=== PATIENT | female | born 1955 | race Two or more races ===

== ENCOUNTER 2017-11-02 10:15 | Inpatient (IN) | payer OTHER, MEDICAID ==
[~2017-11-02] VITALS: Ht 160 cm; Wt 163.3 kg
[2017-11-02 11:00] LABS: Basophils # (auto) 0 uL; Basophils % (auto) 0.4 % (0.0-2.0); Eosinophils # (auto) 0.1 uL; Eosinophils % (auto) 0.5 % (0.0-7.0); Hematocrit 35.2 % (36.0-46.0); Hemoglobin 11.8 g/dL (12.2-16.2); Lymphocytes # (auto) 0.7 uL; Mean Corpuscular Hemoglobin 29.5 pg (28.0-32.0); Mean Corpuscular Hgb Conc. 33.5 g/dL (32.0-36.0); Mean Corpuscular Volume 88.1 fL (80.0-100.0); Monocytes # (auto) 1.2 uL; Monocytes % (auto) 10.2 % (0.0-12.0); Neutrophils % (auto) 82.9 % (37.0-80.0); Platelet Count (auto) 299 10^3/uL (140-450); Red Blood Cells 3.99 10^6/uL (4.0-5.20); Red Cell Distribution Width 14.1 % (11.8-14.3); White Blood Cell 12.1 10^3/uL (4.4-10.8)
[2017-11-02 11:23] LABS: Albumin 2.6 g/dL (3.4-5.0); BUN/Creatinine Ratio 20.7; Potassium 3.4 mmol/L (3.5-5.1); Total Protein 7.1 g/dL (6.4-8.2)
[2017-11-02 11:44] LABS: Lactic Acid w/Reflex 2.8 mmol/L (0.4-2.0)
[2017-11-02] MEDS ORDERED: VANCOMYCIN 1GM/250ML 250 ML IV ONE (12:30)
[2017-11-02] MEDS ORDERED: PIPERACILLIN-TAZOB 3.375GM 100 ML IV ONE (12:30)
[2017-11-02] MEDS ORDERED: LORazepam 0.5 MG TAB PO PRN (13:30)
[2017-11-02] MEDS ORDERED: NITROGLYCERIN 0.4 MG SL TAB SL PRN (13:30)
[2017-11-02] MEDS ORDERED: PROMETHAZINE HCL 25 MG/ML 1ML IV PRN (13:30)
[2017-11-02] MEDS ORDERED: MORPHINE SULFATE 8mg/ml INJ SDV IV PRN ×2 (13:30)
[2017-11-02] MEDS ORDERED: ACETAMINOPHEN 500 MG TAB PO PRN (13:30)
[2017-11-02] MEDS ORDERED: LACTULOSE 20Gm/30ML SOLN PO PRN (13:30)
[2017-11-02] MEDS: SODIUM CHLORIDE 0.9% 1,000 ML IV SCH ×2 (14:02→23:52)
[2017-11-02] MEDS ORDERED: GASTROGRAFIN 120 ML SOL ONE (15:10)
[2017-11-02] MEDS ORDERED: FLUCONAZOLE 200MG/100ML 100 ML IV ONE (15:45)
[2017-11-02] MEDS ORDERED: MEPERIDINE HCL (25 MG/ML) 1ML VIAL IV PRN (19:00)
[2017-11-02] MEDS ORDERED: ACETAMINOPHEN 650 mg PER 20 mL UD ONE (19:06)
[2017-11-02 19:27] LABS: Hematocrit 33.2 % (36.0-46.0); Hemoglobin 11.2 g/dL (12.2-16.2)
[2017-11-02 19:43] LABS: INR 1.2 (0.9-1.15); Partial Thromboplastin Time 31.3 sec (23.78-33.04); Prothrombin Time 12.7 sec (9.27-12.13)
[2017-11-02] MEDS: CLINDAMYCIN 600MG IV 50 ML IV SCH ×2 (20:15)
[2017-11-02] MEDS ORDERED: WARFARIN SODIUM 5 MG TAB PO ONE (20:45)
[2017-11-02 21:34] LABS: Urine Bacteria NONE SEEN /hpf (None Seen); Urine Blood Negative /uL (Negative); Urine Hyaline Cast FEW /lpf (0 - 2); Urine Mucus FEW (None Seen); Urine Specific Gravity 1.028 (1.001-1.035); Urine WBC 2 /hpf (0 - 5)
[2017-11-03] MEDS: NYSTATIN TOPICAL POWDER 15GM TOP SCH ×3 (00:18→22:00)
[2017-11-03] MEDS: ENOXAPARIN SOD 120 MG/0.8 ML SYRINGE SC SCH ×3 (00:18→21:08)
[2017-11-03 01:07] LABS: Hematocrit 31.4 % (36.0-46.0); Hemoglobin 10.8 g/dL (12.2-16.2)
[2017-11-03] MEDS: CLINDAMYCIN 600MG IV 50 ML IV SCH ×3 (06:22→21:08)
[2017-11-03 06:56] LABS: Basophils # (auto) 0 uL; Basophils % (auto) 0.2 % (0.0-2.0); Eosinophils # (auto) 0.2 uL; Eosinophils % (auto) 2.2 % (0.0-7.0); Hematocrit 30.5 % (36.0-46.0); Hemoglobin 10.6 g/dL (12.2-16.2); Lymphocytes # (auto) 0.7 uL; Mean Corpuscular Hemoglobin 30.4 pg (28.0-32.0); Mean Corpuscular Hgb Conc. 34.8 g/dL (32.0-36.0); Mean Corpuscular Volume 87.3 fL (80.0-100.0); Monocytes # (auto) 0.9 uL; Monocytes % (auto) 10.2 % (0.0-12.0); Neutrophils # (auto) 7.2 uL; Neutrophils % (auto) 79.4 % (37.0-80.0); Nucleated Red Blood Cells % 0.1 %; Platelet Count (auto) 263 10^3/uL (140-450); Red Blood Cells 3.49 10^6/uL (4.0-5.20); Red Cell Distribution Width 14.3 % (11.8-14.3); White Blood Cell 9.1 10^3/uL (4.4-10.8)
[2017-11-03 07:06] LABS: BUN/Creatinine Ratio 30.5; Calcium 8.5 mg/dL (8.5-10.1); Potassium 3.1 mmol/L (3.5-5.1); Total Protein 5.8 g/dL (6.4-8.2)
[2017-11-03 07:16] LABS: INR 1.2 (0.9-1.15); Partial Thromboplastin Time 34.8 sec (23.78-33.04); Prothrombin Time 12.7 sec (9.27-12.13)
[2017-11-03] MEDS ORDERED: POTASSIUM CHL 20 Meq TABLET PO ONE (09:15)
[2017-11-03] MEDS: cefTRIAXone 1GM/10ml IVPUSH 10 ML IV SCH (10:08)
[2017-11-03] MEDS: FLUCONAZOLE 200MG/100ML 100 ML IV SCH (10:08)
[2017-11-03] MEDS: PANTOPRAZOLE 40 MG TAB PO SCH (10:08)
[2017-11-03] MEDS: SODIUM CHLORIDE 0.9% 1,000 ML IV SCH ×2 (10:08→21:07)
[2017-11-03] MEDS: BOOST PLUS 8 ounce PO SCH ×3 (12:09→21:08)
[2017-11-03] MEDS ORDERED: WARFARIN SODIUM 2.5 MG TAB PO ONE (17:00)
[2017-11-03 17:50] VITALS: BP 117/49
[2017-11-03 20:21] VITALS: BP 112/43
[2017-11-03] MEDS: HYDROcodone-ACET 5/325MG TAB PO PRN (21:34)
[2017-11-04 00:07] VITALS: BP 114/55
[2017-11-04 04:00] VITALS: BP 117/56
[2017-11-04] MEDS: HYDROcodone-ACET 5/325MG TAB PO PRN ×2 (04:50→22:01)
[2017-11-04] MEDS: SODIUM CHLORIDE 0.9% 1,000 ML IV SCH ×3 (05:17→20:12)
[2017-11-04 05:27] LABS: Basophils # (auto) 0 uL; Basophils % (auto) 0.5 % (0.0-2.0); Eosinophils # (auto) 0.2 uL; Eosinophils % (auto) 2.4 % (0.0-7.0); Hematocrit 30.4 % (36.0-46.0); Hemoglobin 10.3 g/dL (12.2-16.2); Lymphocytes % (auto) 12.7 % (10.0-50.0); Mean Corpuscular Hemoglobin 29.9 pg (28.0-32.0); Mean Corpuscular Hgb Conc. 33.9 g/dL (32.0-36.0); Mean Corpuscular Volume 88.2 fL (80.0-100.0); Monocytes # (auto) 0.9 uL; Monocytes % (auto) 11.7 % (0.0-12.0); Neutrophils # (auto) 5.7 uL; Neutrophils % (auto) 72.7 % (37.0-80.0); Nucleated Red Blood Cells % 0.1 %; Platelet Count (auto) 263 10^3/uL (140-450); Red Blood Cells 3.45 10^6/uL (4.0-5.20); Red Cell Distribution Width 14.6 % (11.8-14.3); White Blood Cell 7.8 10^3/uL (4.4-10.8)
[2017-11-04 05:40] LABS: INR 1.13 (0.9-1.15); Partial Thromboplastin Time 34.9 sec (23.78-33.04)
[2017-11-04 05:44] LABS: Albumin 2.1 g/dL (3.4-5.0); BUN/Creatinine Ratio 24.5; Bilirubin, Total 0.5 mg/dL (0.2-1.0); Calcium 7.6 mg/dL (8.5-10.1); Potassium 3.4 mmol/L (3.5-5.1); Total Protein 5.9 g/dL (6.4-8.2)
[2017-11-04] MEDS: CLINDAMYCIN 600MG IV 50 ML IV SCH ×3 (06:06→21:27)
[2017-11-04] MEDS: BOOST PLUS 8 ounce PO SCH ×3 (06:07→22:00)
[2017-11-04 08:30] VITALS: BP 120/65
[2017-11-04] MEDS: cefTRIAXone 1GM/10ml IVPUSH 10 ML IV SCH (09:25)
[2017-11-04] MEDS: FLUCONAZOLE 200MG/100ML 100 ML IV SCH (09:43)
[2017-11-04] MEDS: PANTOPRAZOLE 40 MG TAB PO SCH (09:43)
[2017-11-04] MEDS: ENOXAPARIN SOD 120 MG/0.8 ML SYRINGE SC SCH ×2 (09:43→21:27)
[2017-11-04] MEDS ORDERED: POTASSIUM CHL 10% (20 MEQ/15ML) 15ml ORAL SOLN PO ONE (09:45)
[2017-11-04] MEDS: NYSTATIN TOPICAL POWDER 15GM TOP SCH ×2 (09:45→21:27)
[2017-11-04 12:39] VITALS: BP 121/53
[2017-11-04] MEDS ORDERED: WARFARIN SODIUM 2.5 MG TAB PO ONE (17:00)
[2017-11-04 17:23] VITALS: BP 118/48
[2017-11-04 20:00] VITALS: BP 125/54
[2017-11-05] VITALS: BP 128/57
[2017-11-05 04:00] VITALS: BP 129/57
[2017-11-05] MEDS: CLINDAMYCIN 600MG IV 50 ML IV SCH ×4 (05:01→21:11)
[2017-11-05] MEDS: SODIUM CHLORIDE 0.9% 1,000 ML IV SCH ×2 (05:04→18:00)
[2017-11-05 05:09] LABS: Basophils # (auto) 0 uL; Basophils % (auto) 0.8 % (0.0-2.0); Eosinophils # (auto) 0.1 uL; Hematocrit 29.4 % (36.0-46.0); Lymphocytes # (auto) 0.6 uL; Mean Corpuscular Hemoglobin 30.2 pg (28.0-32.0); Mean Corpuscular Hgb Conc. 34.1 g/dL (32.0-36.0); Mean Corpuscular Volume 88.5 fL (80.0-100.0); Monocytes # (auto) 0.8 uL; Monocytes % (auto) 14.2 % (0.0-12.0); Neutrophils # (auto) 3.9 uL; Nucleated Red Blood Cells % 0.1 %; Platelet Count (auto) 232 10^3/uL (140-450); Red Blood Cells 3.32 10^6/uL (4.0-5.20); Red Cell Distribution Width 14.8 % (11.8-14.3); White Blood Cell 5.4 10^3/uL (4.4-10.8)
[2017-11-05 05:25] LABS: INR 1.59 (0.9-1.15); Partial Thromboplastin Time 37.8 sec (23.78-33.04); Prothrombin Time 16.6 sec (9.27-12.13)
[2017-11-05 05:34] LABS: BUN/Creatinine Ratio 27.4; Bilirubin, Total 0.4 mg/dL (0.2-1.0); Calcium 7.3 mg/dL (8.5-10.1); Potassium 3.7 mmol/L (3.5-5.1); Total Protein 5.9 g/dL (6.4-8.2)
[2017-11-05] MEDS: BOOST PLUS 8 ounce PO SCH ×4 (06:00→21:11)
[2017-11-05 08:00] VITALS: BP 126/59
[2017-11-05] MEDS: cefTRIAXone 1GM/10ml IVPUSH 10 ML IV SCH (09:27)
[2017-11-05] MEDS: ENOXAPARIN SOD 120 MG/0.8 ML SYRINGE SC SCH ×2 (10:00→21:12)
[2017-11-05] MEDS: NYSTATIN TOPICAL POWDER 15GM TOP SCH ×2 (10:00→21:12)
[2017-11-05] MEDS: PANTOPRAZOLE 40 MG TAB PO SCH (10:00)
[2017-11-05] MEDS: FLUCONAZOLE 200MG/100ML 100 ML IV SCH (10:00)
[2017-11-05 11:50] VITALS: BP 126/35
[2017-11-05] MEDS: HYDROcodone-ACET 5/325MG TAB PO PRN (15:16)
[2017-11-05 15:56] VITALS: BP 126/40
[2017-11-05] MEDS ORDERED: WARFARIN SODIUM 5 MG TAB PO ONE (17:30)
[2017-11-05 19:50] VITALS: BP 122/47
[2017-11-06] VITALS: BP 139/69
[2017-11-06 04:00] VITALS: BP 129/49
[2017-11-06 05:08] LABS: Basophils # (auto) 0 uL; Basophils % (auto) 0.2 % (0.0-2.0); Eosinophils # (auto) 0.2 uL; Hematocrit 28.8 % (36.0-46.0); Hemoglobin 9.8 g/dL (12.2-16.2); Lymphocytes # (auto) 0.9 uL; Lymphocytes % (auto) 11.2 % (10.0-50.0); Mean Corpuscular Hgb Conc. 33.9 g/dL (32.0-36.0); Mean Corpuscular Volume 88.5 fL (80.0-100.0); Monocytes % (auto) 12.6 % (0.0-12.0); Neutrophils # (auto) 5.9 uL; Nucleated Red Blood Cells % 0.1 %; Platelet Count (auto) 216 10^3/uL (140-450); Red Blood Cells 3.25 10^6/uL (4.0-5.20)
[2017-11-06 05:21] LABS: INR 3.61 (0.9-1.15); Partial Thromboplastin Time 45.8 sec (23.78-33.04); Prothrombin Time 35.9 sec (9.27-12.13)
[2017-11-06 05:44] LABS: Albumin 1.9 g/dL (3.4-5.0); Bilirubin, Total 0.3 mg/dL (0.2-1.0); Calcium 7.5 mg/dL (8.5-10.1); Potassium 3.8 mmol/L (3.5-5.1); Total Protein 5.9 g/dL (6.4-8.2)
[2017-11-06] MEDS: BOOST PLUS 8 ounce PO SCH ×4 (05:52→21:15)
[2017-11-06] MEDS: CLINDAMYCIN 600MG IV 50 ML IV SCH ×3 (05:52→21:15)
[2017-11-06] MEDS: SODIUM CHLORIDE 0.9% 1,000 ML IV SCH ×2 (05:53→18:31)
[2017-11-06 08:00] VITALS: BP 118/47
[2017-11-06] MEDS: PANTOPRAZOLE 40 MG TAB PO SCH (10:14)
[2017-11-06] MEDS: cefTRIAXone 1GM/10ml IVPUSH 10 ML IV SCH (10:15)
[2017-11-06] MEDS: FLUCONAZOLE 200MG/100ML 100 ML IV SCH (10:15)
[2017-11-06] MEDS: NYSTATIN TOPICAL POWDER 15GM TOP SCH ×2 (10:15→21:16)
[2017-11-06 12:00] VITALS: BP 119/44
[2017-11-06 16:00] VITALS: BP 124/47
[2017-11-06] MEDS: PRO-STAT 64 30ML PO SCH (18:00)
[2017-11-06 19:52] VITALS: BP 153/45
[2017-11-06] MEDS: HYDROcodone-ACET 5/325MG TAB PO PRN (21:53)
[2017-11-07] VITALS: BP 120/88
[2017-11-07] MEDS: SODIUM CHLORIDE 0.9% 1,000 ML IV SCH ×2 (03:42→13:20)
[2017-11-07 04:00] VITALS: BP 137/56
[2017-11-07 05:08] LABS: Hematocrit 29.2 % (36.0-46.0); Hemoglobin 9.7 g/dL (12.2-16.2); Mean Corpuscular Hemoglobin 29.8 pg (28.0-32.0); Mean Corpuscular Hgb Conc. 33.4 g/dL (32.0-36.0); Mean Corpuscular Volume 89.2 fL (80.0-100.0); Platelet Count (auto) 218 10^3/uL (140-450); Red Blood Cells 3.27 10^6/uL (4.0-5.20); Red Cell Distribution Width 15.2 % (11.8-14.3)
[2017-11-07 05:14] LABS: Basophils % (manual) 0 (0.0-2.0); Blast Cells 0; Myelocytes % 0; Promyelocytes % 0; Reactive Lymphocytes 0
[2017-11-07 05:23] LABS: INR 2.16 (0.9-1.15); Prothrombin Time 22.1 sec (9.27-12.13)
[2017-11-07 05:24] LABS: BUN/Creatinine Ratio 22.4; Calcium 7.4 mg/dL (8.5-10.1)
[2017-11-07] MEDS: CLINDAMYCIN 600MG IV 50 ML IV SCH ×3 (05:37→21:46)
[2017-11-07] MEDS: BOOST PLUS 8 ounce PO SCH ×4 (05:37→22:24)
[2017-11-07 06:50] LABS: Band Neutrophils % (manual) 4; Eosinophils % (manual) 1 (0-7); Lymphocytes % (manual) 13 (10.0-50.0); Metamyelocytes % 2; Monocytes % (manual) 11 (0-12)
[2017-11-07 08:00] VITALS: BP 127/56
[2017-11-07] MEDS: PRO-STAT 64 30ML PO SCH ×2 (08:00→18:06)
[2017-11-07] MEDS: PANTOPRAZOLE 40 MG TAB PO SCH (09:36)
[2017-11-07] MEDS: FLUCONAZOLE 200MG/100ML 100 ML IV SCH (09:36)
[2017-11-07] MEDS: cefTRIAXone 1GM/10ml IVPUSH 10 ML IV SCH (09:36)
[2017-11-07] MEDS: NYSTATIN TOPICAL POWDER 15GM TOP SCH ×2 (09:36→22:23)
[2017-11-07 11:50] VITALS: BP 110/51
[2017-11-07 16:00] VITALS: BP 117/45
[2017-11-07] MEDS ORDERED: WARFARIN SODIUM 2.5 MG TAB PO ONE (17:00)
[2017-11-07] MEDS ORDERED: WARFARIN SODIUM 5 MG TAB PO ONE (17:00)
[2017-11-07 20:00] VITALS: BP 103/41
[2017-11-07] MEDS: TEMAZEPAM 15 MG CAP PO PRN (21:47)
[2017-11-08] MEDS: SODIUM CHLORIDE 0.9% 1,000 ML IV SCH ×3 (00:09→18:07)
[2017-11-08] MEDS: BOOST PLUS 8 ounce PO SCH ×4 (05:24→21:37)
[2017-11-08] MEDS: CLINDAMYCIN 600MG IV 50 ML IV SCH ×3 (05:24→21:04)
[2017-11-08 05:51] LABS: INR 1.95 (0.9-1.15); Prothrombin Time 20.1 sec (9.27-12.13)
[2017-11-08 05:54] LABS: Basophils # (auto) 0 uL; Basophils % (auto) 0.3 % (0.0-2.0); Eosinophils # (auto) 0.2 uL; Eosinophils % (auto) 1.9 % (0.0-7.0); Hematocrit 30.5 % (36.0-46.0); Hemoglobin 10.4 g/dL (12.2-16.2); Lymphocytes # (auto) 0.8 uL; Lymphocytes % (auto) 10.2 % (10.0-50.0); Mean Corpuscular Hemoglobin 30.4 pg (28.0-32.0); Mean Corpuscular Volume 89.5 fL (80.0-100.0); Monocytes # (auto) 0.9 uL; Monocytes % (auto) 10.7 % (0.0-12.0); Neutrophils # (auto) 6.1 uL; Neutrophils % (auto) 76.9 % (37.0-80.0); Platelet Count (auto) 242 10^3/uL (140-450); Red Blood Cells 3.41 10^6/uL (4.0-5.20); Red Cell Distribution Width 15.5 % (11.8-14.3)
[2017-11-08 06:10] LABS: BUN/Creatinine Ratio 21.2; Calcium 7.7 mg/dL (8.5-10.1); Potassium 4.3 mmol/L (3.5-5.1)
[2017-11-08 06:12] LABS: Bilirubin, Total 0.4 mg/dL (0.2-1.0); Total Protein 6.4 g/dL (6.4-8.2)
[2017-11-08] MEDS: PRO-STAT 64 30ML PO SCH ×2 (08:00→18:05)
[2017-11-08] MEDS: PANTOPRAZOLE 40 MG TAB PO SCH (10:18)
[2017-11-08] MEDS: cefTRIAXone 1GM/10ml IVPUSH 10 ML IV SCH (10:18)
[2017-11-08] MEDS: FLUCONAZOLE 200MG/100ML 100 ML IV SCH (10:19)
[2017-11-08 12:00] VITALS: BP 126/50
[2017-11-08] MEDS: NYSTATIN TOPICAL POWDER 15GM TOP SCH ×2 (15:24→21:05)
[2017-11-08 16:00] VITALS: BP 109/62
[2017-11-08] MEDS ORDERED: WARFARIN SODIUM 2 MG TAB PO ONE (17:00)
[2017-11-08 20:00] VITALS: BP 123/58
[2017-11-08] MEDS: HYDROcodone-ACET 5/325MG TAB PO PRN (22:37)
[2017-11-08] MEDS: TEMAZEPAM 15 MG CAP PO PRN (22:37)
[2017-11-09 00:45] VITALS: BP 116/59
[2017-11-09] MEDS: SODIUM CHLORIDE 0.9% 1,000 ML IV SCH ×2 (02:26→14:15)
[2017-11-09 04:00] VITALS: BP 126/56
[2017-11-09 05:35] LABS: Basophils # (auto) 0 uL; Basophils % (auto) 0.3 % (0.0-2.0); Eosinophils # (auto) 0.1 uL; Eosinophils % (auto) 1.7 % (0.0-7.0); Hemoglobin 9.9 g/dL (12.2-16.2); Lymphocytes # (auto) 0.8 uL; Lymphocytes % (auto) 11.5 % (10.0-50.0); Mean Corpuscular Hemoglobin 30.4 pg (28.0-32.0); Mean Corpuscular Volume 89.4 fL (80.0-100.0); Monocytes # (auto) 0.7 uL; Monocytes % (auto) 10.1 % (0.0-12.0); Neutrophils # (auto) 5.4 uL; Neutrophils % (auto) 76.4 % (37.0-80.0); Platelet Count (auto) 226 10^3/uL (140-450); Red Blood Cells 3.24 10^6/uL (4.0-5.20); Red Cell Distribution Width 15.6 % (11.8-14.3); White Blood Cell 7.1 10^3/uL (4.4-10.8)
[2017-11-09 05:51] LABS: INR 1.85 (0.9-1.15); Partial Thromboplastin Time 41.9 sec (23.78-33.04); Prothrombin Time 19.1 sec (9.27-12.13)
[2017-11-09 05:58] LABS: Albumin 1.9 g/dL (3.4-5.0); Calcium 7.6 mg/dL (8.5-10.1); Potassium 4.2 mmol/L (3.5-5.1)
[2017-11-09] MEDS: BOOST PLUS 8 ounce PO SCH ×4 (05:59→21:25)
[2017-11-09] MEDS: CLINDAMYCIN 600MG IV 50 ML IV SCH ×3 (05:59→21:25)
[2017-11-09 06:01] LABS: BUN/Creatinine Ratio 19.4
[2017-11-09 06:04] LABS: Bilirubin, Total 0.3 mg/dL (0.2-1.0); Total Protein 6.2 g/dL (6.4-8.2)
[2017-11-09 08:00] VITALS: BP 129/52
[2017-11-09] MEDS: cefTRIAXone 1GM/10ml IVPUSH 10 ML IV SCH (09:21)
[2017-11-09] MEDS: PRO-STAT 64 30ML PO SCH ×2 (09:31→17:55)
[2017-11-09] MEDS: FLUCONAZOLE 200MG/100ML 100 ML IV SCH (09:33)
[2017-11-09] MEDS: PANTOPRAZOLE 40 MG TAB PO SCH (09:34)
[2017-11-09] MEDS: NYSTATIN TOPICAL POWDER 15GM TOP SCH ×2 (09:34→21:26)
[2017-11-09 12:00] VITALS: BP 132/52
[2017-11-09 16:00] VITALS: BP 130/54
[2017-11-09] MEDS: HYDROcodone-ACET 5/325MG TAB PO PRN ×2 (16:35→22:37)
[2017-11-09] MEDS ORDERED: WARFARIN SODIUM 2 MG TAB PO ONE (17:00)
[2017-11-09 20:00] VITALS: BP 120/41
[2017-11-09] MEDS: TEMAZEPAM 15 MG CAP PO PRN ×2 (22:37→22:40)
[2017-11-10] VITALS: BP 124/60
[2017-11-10] MEDS: SODIUM CHLORIDE 0.9% 1,000 ML IV SCH ×2 (01:05→10:40)
[2017-11-10 04:00] VITALS: BP 120/53
[2017-11-10] MEDS: CLINDAMYCIN 600MG IV 50 ML IV SCH ×2 (05:06→15:12)
[2017-11-10] MEDS: BOOST PLUS 8 ounce PO SCH ×4 (05:06→21:34)
[2017-11-10 06:09] LABS: Basophils # (auto) 0 uL; Basophils % (auto) 0.4 % (0.0-2.0); Eosinophils # (auto) 0.1 uL; Eosinophils % (auto) 1.9 % (0.0-7.0); Hematocrit 28.4 % (36.0-46.0); Hemoglobin 9.6 g/dL (12.2-16.2); Lymphocytes # (auto) 0.8 uL; Lymphocytes % (auto) 11.9 % (10.0-50.0); Mean Corpuscular Hemoglobin 30.1 pg (28.0-32.0); Mean Corpuscular Hgb Conc. 33.7 g/dL (32.0-36.0); Mean Corpuscular Volume 89.3 fL (80.0-100.0); Monocytes # (auto) 0.6 uL; Monocytes % (auto) 9.1 % (0.0-12.0); Neutrophils % (auto) 76.7 % (37.0-80.0); Nucleated Red Blood Cells % 0.1 %; Platelet Count (auto) 206 10^3/uL (140-450); Red Blood Cells 3.18 10^6/uL (4.0-5.20); Red Cell Distribution Width 15.5 % (11.8-14.3); White Blood Cell 6.5 10^3/uL (4.4-10.8)
[2017-11-10 06:37] LABS: INR 2.15 (0.9-1.15); Partial Thromboplastin Time 42.9 sec (23.78-33.04)
[2017-11-10 06:42] LABS: Albumin 1.9 g/dL (3.4-5.0); BUN/Creatinine Ratio 21.5; Bilirubin, Total 0.5 mg/dL (0.2-1.0); Calcium 7.7 mg/dL (8.5-10.1); Potassium 4.1 mmol/L (3.5-5.1); Total Protein 6.3 g/dL (6.4-8.2)
[2017-11-10 08:00] VITALS: BP 129/56
[2017-11-10] MEDS: PRO-STAT 64 30ML PO SCH ×2 (08:00→18:08)
[2017-11-10] MEDS: FLUCONAZOLE 200MG/100ML 100 ML IV SCH (10:00)
[2017-11-10] MEDS: cefTRIAXone 1GM/10ml IVPUSH 10 ML IV SCH (10:38)
[2017-11-10] MEDS: PANTOPRAZOLE 40 MG TAB PO SCH (10:39)
[2017-11-10] MEDS: NYSTATIN TOPICAL POWDER 15GM TOP SCH ×2 (10:39→22:00)
[2017-11-10 12:00] VITALS: BP 122/54
[2017-11-10 15:55] VITALS: BP 126/68
[2017-11-10] MEDS ORDERED: WARFARIN SODIUM 5 MG TAB PO ONE (17:00)
[2017-11-10 19:51] VITALS: BP 114/62
[2017-11-10] MEDS: TEMAZEPAM 15 MG CAP PO PRN (21:35)
[2017-11-10] MEDS: HYDROcodone-ACET 5/325MG TAB PO PRN (21:35)
[2017-11-11] VITALS: BP 123/53
[2017-11-11 04:00] VITALS: BP 115/46
[2017-11-11 06:00] LABS: Basophils # (auto) 0 uL; Basophils % (auto) 0.3 % (0.0-2.0); Eosinophils # (auto) 0.2 uL; Eosinophils % (auto) 2.1 % (0.0-7.0); Hematocrit 28.6 % (36.0-46.0); Hemoglobin 9.7 g/dL (12.2-16.2); Lymphocytes # (auto) 0.8 uL; Lymphocytes % (auto) 11.2 % (10.0-50.0); Mean Corpuscular Hemoglobin 29.9 pg (28.0-32.0); Mean Corpuscular Hgb Conc. 33.8 g/dL (32.0-36.0); Mean Corpuscular Volume 88.3 fL (80.0-100.0); Monocytes # (auto) 0.6 uL; Monocytes % (auto) 7.6 % (0.0-12.0); Neutrophils # (auto) 5.9 uL; Neutrophils % (auto) 78.8 % (37.0-80.0); Nucleated Red Blood Cells % 0.1 %; Platelet Count (auto) 217 10^3/uL (140-450); Red Blood Cells 3.24 10^6/uL (4.0-5.20); Red Cell Distribution Width 15.2 % (11.8-14.3); White Blood Cell 7.5 10^3/uL (4.4-10.8)
[2017-11-11 07:30] LABS: INR 2.08 (0.9-1.15); Partial Thromboplastin Time 44.3 sec (23.78-33.04); Prothrombin Time 21.4 sec (9.27-12.13)
[2017-11-11 08:00] VITALS: BP 133/66
[2017-11-11] MEDS: PRO-STAT 64 30ML PO SCH ×2 (08:00→20:00)
[2017-11-11] MEDS: cefTRIAXone 1GM/10ml IVPUSH 10 ML IV SCH (09:36)
[2017-11-11] MEDS: PANTOPRAZOLE 40 MG TAB PO SCH (09:37)
[2017-11-11] MEDS: NYSTATIN TOPICAL POWDER 15GM TOP SCH ×2 (10:54→22:27)
[2017-11-11] MEDS: FLUCONAZOLE 100 MG TAB PO SCH (10:54)
[2017-11-11] MEDS: BOOST PLUS 8 ounce PO SCH ×4 (10:55→22:27)
[2017-11-11] MEDS ORDERED: WARFARIN SODIUM 2 MG TAB PO ONE (17:00)
[2017-11-11 20:00] VITALS: BP 156/71
[2017-11-11] MEDS: HYDROcodone-ACET 5/325MG TAB PO PRN (22:29)
[2017-11-11] MEDS ORDERED: ONDANSETRON HCL 4 MG/2 ML VIAL ONE (23:09)
[2017-11-11] MEDS: TEMAZEPAM 15 MG CAP PO PRN (23:14)
[2017-11-11] MEDS ORDERED: ONDANSETRON HCL 4 MG/2 ML VIAL IV ONE (23:15)
[2017-11-12] VITALS: BP 155/70
[2017-11-12 04:00] VITALS: BP 148/66
[2017-11-12] MEDS: BOOST PLUS 8 ounce PO SCH ×4 (05:32→21:48)
[2017-11-12 06:46] LABS: Basophils # (auto) 0 uL; Basophils % (auto) 0.3 % (0.0-2.0); Eosinophils # (auto) 0.1 uL; Eosinophils % (auto) 1.6 % (0.0-7.0); Hematocrit 28.2 % (36.0-46.0); Hemoglobin 9.7 g/dL (12.2-16.2); Lymphocytes # (auto) 0.7 uL; Mean Corpuscular Hemoglobin 30.2 pg (28.0-32.0); Mean Corpuscular Hgb Conc. 34.5 g/dL (32.0-36.0); Mean Corpuscular Volume 87.6 fL (80.0-100.0); Monocytes # (auto) 0.6 uL; Monocytes % (auto) 7.1 % (0.0-12.0); Neutrophils # (auto) 6.4 uL; Platelet Count (auto) 205 10^3/uL (140-450); Red Blood Cells 3.22 10^6/uL (4.0-5.20); Red Cell Distribution Width 15.2 % (11.8-14.3); White Blood Cell 7.8 10^3/uL (4.4-10.8)
[2017-11-12 06:54] LABS: INR 2.19 (0.9-1.15); Partial Thromboplastin Time 42.7 sec (23.78-33.04); Prothrombin Time 22.4 sec (9.27-12.13)
[2017-11-12 08:00] VITALS: BP 126/56
[2017-11-12] MEDS: PRO-STAT 64 30ML PO SCH ×2 (08:00→18:00)
[2017-11-12] MEDS: NYSTATIN TOPICAL POWDER 15GM TOP SCH ×2 (10:19→21:48)
[2017-11-12] MEDS: cefTRIAXone 1GM/10ml IVPUSH 10 ML IV SCH (10:19)
[2017-11-12] MEDS: FLUCONAZOLE 100 MG TAB PO SCH (10:19)
[2017-11-12] MEDS: PANTOPRAZOLE 40 MG TAB PO SCH (10:19)
[2017-11-12 11:50] VITALS: BP 125/59
[2017-11-12] MEDS ORDERED: FUROSEMIDE 40 MG/4 ML VIAL IV ONE (12:00)
[2017-11-12] MEDS ORDERED: POTASSIUM CHL 20 Meq TABLET PO ONE (12:30)
[2017-11-12] MEDS: ALBUMIN 25% 100 ML IV SCH ×2 (13:14→20:24)
[2017-11-12 14:44] LABS: Free T4 (Free Thyroxine) 1.08 ng/dL (0.89-1.76)
[2017-11-12 14:45] LABS: Free T3 3.06 pg/mL (2.3-4.2)
[2017-11-12 15:56] VITALS: BP 125/71
[2017-11-12] MEDS ORDERED: WARFARIN SODIUM 2 MG TAB PO ONE (17:00)
[2017-11-12] MEDS ORDERED: phytonadione 2.5 MG in SODIUM CHL 0.9% 50 ML IV ONE (17:30)
[2017-11-12] MEDS: FUROSEMIDE 40 MG/4 ML VIAL IV SCH (18:42)
[2017-11-12] MEDS: HYDROcodone-ACET 5/325MG TAB PO PRN (20:24)
[2017-11-12] MEDS: POTASSIUM CHL 20 Meq TABLET PO SCH (21:48)
[2017-11-12 22:00] VITALS: BP 127/58
[2017-11-12] MEDS: TEMAZEPAM 15 MG CAP PO PRN (23:09)
[2017-11-13] MEDS: ALBUMIN 25% 100 ML IV SCH (03:40)
[2017-11-13 05:00] VITALS: BP 113/62
[2017-11-13] MEDS: BOOST PLUS 8 ounce PO SCH ×4 (05:12→21:52)
[2017-11-13 05:36] LABS: Basophils # (auto) 0 uL; Basophils % (auto) 0.5 % (0.0-2.0); Eosinophils # (auto) 0.1 uL; Eosinophils % (auto) 1.9 % (0.0-7.0); Hemoglobin 9.3 g/dL (12.2-16.2); Lymphocytes # (auto) 0.7 uL; Lymphocytes % (auto) 9.1 % (10.0-50.0); Mean Corpuscular Hemoglobin 30.3 pg (28.0-32.0); Mean Corpuscular Hgb Conc. 34.6 g/dL (32.0-36.0); Mean Corpuscular Volume 87.5 fL (80.0-100.0); Monocytes # (auto) 0.5 uL; Monocytes % (auto) 6.9 % (0.0-12.0); Neutrophils % (auto) 81.6 % (37.0-80.0); Platelet Count (auto) 203 10^3/uL (140-450); Red Blood Cells 3.08 10^6/uL (4.0-5.20); Red Cell Distribution Width 15.3 % (11.8-14.3); White Blood Cell 7.3 10^3/uL (4.4-10.8)
[2017-11-13 05:49] LABS: INR 1.68 (0.9-1.15); Partial Thromboplastin Time 35.1 sec (23.78-33.04); Prothrombin Time 17.5 sec (9.27-12.13)
[2017-11-13 06:00] LABS: BUN/Creatinine Ratio 18.4; Calcium 8.9 mg/dL (8.5-10.1); Potassium 4.4 mmol/L (3.5-5.1)
[2017-11-13] MEDS: FUROSEMIDE 40 MG/4 ML VIAL IV SCH ×2 (06:00→18:13)
[2017-11-13 08:00] VITALS: BP 131/70
[2017-11-13] MEDS: PRO-STAT 64 30ML PO SCH ×2 (08:00→18:20)
[2017-11-13 08:46] VITALS: BP 137/70
[2017-11-13] MEDS ORDERED: LIDOCAINE 2%HCL (LOCAL ANESTH.) INJ 20ML MDV ONE (09:00)
[2017-11-13] MEDS ORDERED: IODIXANOL 320MG/ML 100ML BTL IV ONE (09:00)
[2017-11-13] MEDS ORDERED: fentaNYL CITRATE 100 MCG/2 ML VL ONE (09:38)
[2017-11-13] MEDS ORDERED: ANGIOMAX 250 MG VIAL IV ONE (09:38)
[2017-11-13] MEDS ORDERED: VERAPAMIL 2.5MG/ML INJ 2ML VIAL IV ONE (09:38)
[2017-11-13] MEDS ORDERED: SODIUM CHL 0.9% 0 ML ONE (09:38)
[2017-11-13] MEDS ORDERED: MIDAZOLAM HCL 1MG/1ML-2 ML VIAL ONE (09:38)
[2017-11-13] MEDS: HYDROcodone-ACET 5/325MG TAB PO PRN ×2 (13:21→22:50)
[2017-11-13] MEDS: PANTOPRAZOLE 40 MG TAB PO SCH (13:21)
[2017-11-13] MEDS: POTASSIUM CHL 20 Meq TABLET PO SCH ×2 (13:21→21:52)
[2017-11-13] MEDS: NYSTATIN TOPICAL POWDER 15GM TOP SCH ×2 (13:23→21:57)
[2017-11-13] MEDS ORDERED: WARFARIN SODIUM 5 MG TAB PO ONE (17:00)
[2017-11-13 17:42] VITALS: BP 112/46
[2017-11-13] MEDS ORDERED: PHYTONADIONE (VIT K)10 MG/ML 1ML VIAL IV ONE (21:30)
[2017-11-13 21:45] VITALS: BP 110/51
[2017-11-13] MEDS ORDERED: phytonadione 5 MG in SODIUM CHL 0.9% 50 ML IV ONE (21:45)
[2017-11-13] MEDS: TEMAZEPAM 15 MG CAP PO PRN (22:50)
[2017-11-14] MEDS ORDERED: ONDANSETRON HCL 4 MG/2 ML VIAL IV PRN (00:15)
[2017-11-14 04:49] VITALS: BP 116/54
[2017-11-14] MEDS: FUROSEMIDE 40 MG/4 ML VIAL IV SCH ×2 (05:56→18:54)
[2017-11-14] MEDS: BOOST PLUS 8 ounce PO SCH ×4 (05:57→22:05)
[2017-11-14 06:08] LABS: INR 1.19 (0.9-1.15); Partial Thromboplastin Time 31.8 sec (23.78-33.04); Prothrombin Time 12.6 sec (9.27-12.13)
[2017-11-14 07:53] LABS: Basophils # (auto) 0.1 uL; Basophils % (auto) 0.4 % (0.0-2.0); Eosinophils # (auto) 0.1 uL; Eosinophils % (auto) 0.4 % (0.0-7.0); Hematocrit 30.2 % (36.0-46.0); Hemoglobin 9.8 g/dL (12.2-16.2); Lymphocytes # (auto) 0.3 uL; Lymphocytes % (auto) 1.6 % (10.0-50.0); Mean Corpuscular Hemoglobin 29.3 pg (28.0-32.0); Mean Corpuscular Hgb Conc. 32.4 g/dL (32.0-36.0); Mean Corpuscular Volume 90.1 fL (80.0-100.0); Monocytes # (auto) 0.6 uL; Monocytes % (auto) 2.9 % (0.0-12.0); Neutrophils # (auto) 19.1 uL; Neutrophils % (auto) 94.7 % (37.0-80.0); Platelet Count (auto) 221 10^3/uL (140-450); Red Blood Cells 3.35 10^6/uL (4.0-5.20); Red Cell Distribution Width 15.6 % (11.8-14.3); White Blood Cell 20.2 10^3/uL (4.4-10.8)
[2017-11-14] MEDS: PRO-STAT 64 30ML PO SCH ×2 (08:00→18:54)
[2017-11-14 08:42] VITALS: BP 116/48
[2017-11-14 08:47] LABS: BUN/Creatinine Ratio 16.8; Calcium 8.6 mg/dL (8.5-10.1); Potassium 4.2 mmol/L (3.5-5.1)
[2017-11-14] MEDS: PANTOPRAZOLE 40 MG TAB PO SCH (10:13)
[2017-11-14] MEDS: POTASSIUM CHL 20 Meq TABLET PO SCH ×2 (10:13→22:04)
[2017-11-14] MEDS: HYDROcodone-ACET 5/325MG TAB PO PRN ×2 (10:15→22:04)
[2017-11-14] MEDS: NYSTATIN TOPICAL POWDER 15GM TOP SCH ×2 (10:20→22:05)
[2017-11-14] MEDS ORDERED: LIDOCAINE 2% (LOCAL ANESTH.) PF 5ml SDV ONE (13:35)
[2017-11-14] MEDS ORDERED: IOHEXOL 350 MG/ML 100ML IJ ONE (13:35)
[2017-11-14] MEDS ORDERED: VANCOMYCIN 1GM/250ML 250 ML IV ONE ×3 (14:00→15:47)
[2017-11-14] MEDS ORDERED: VANCOMYCIN HCL 1000 MG VL ONE (15:27)
[2017-11-14] MEDS ORDERED: fentaNYL CITRATE 100 MCG/2 ML VL ONE (15:28)
[2017-11-14] MEDS ORDERED: MIDAZOLAM HCL 1MG/1ML-2 ML VIAL ONE (15:28)
[2017-11-14] MEDS ORDERED: BACITRACIN INJ 50000 UNIT VIAL ONE (15:28)
[2017-11-14] MEDS ORDERED: WARFARIN SODIUM 2 MG TAB PO ONE (17:00)
[2017-11-14] MEDS: ceFAZolin 1GM 2 GM in D5W 5% 100 ML IV SCH ×2 (18:54→23:40)
[2017-11-14 21:44] VITALS: BP 101/59
[2017-11-14] MEDS: DOXYCYCLINE 100 MG TAB/CAP PO SCH (22:03)
[2017-11-14] MEDS: TEMAZEPAM 15 MG CAP PO PRN (23:31)
[2017-11-15 05:00] VITALS: BP 105/58
[2017-11-15] MEDS: FUROSEMIDE 40 MG/4 ML VIAL IV SCH ×2 (05:18→17:51)
[2017-11-15] MEDS: ceFAZolin 1GM 2 GM in D5W 5% 100 ML IV SCH (05:19)
[2017-11-15] MEDS: BOOST PLUS 8 ounce PO SCH ×4 (05:57→22:00)
[2017-11-15 06:24] LABS: Basophils # (auto) 0 uL; Basophils % (auto) 0.3 % (0.0-2.0); Eosinophils # (auto) 0.1 uL; Eosinophils % (auto) 1.9 % (0.0-7.0); Hematocrit 25.7 % (36.0-46.0); Lymphocytes # (auto) 0.5 uL; Lymphocytes % (auto) 7.8 % (10.0-50.0); Mean Corpuscular Hemoglobin 30.6 pg (28.0-32.0); Mean Corpuscular Volume 87.3 fL (80.0-100.0); Monocytes # (auto) 0.7 uL; Monocytes % (auto) 10.4 % (0.0-12.0); Neutrophils # (auto) 5.4 uL; Neutrophils % (auto) 79.6 % (37.0-80.0); Platelet Count (auto) 174 10^3/uL (140-450); Red Blood Cells 2.94 10^6/uL (4.0-5.20); Red Cell Distribution Width 15.4 % (11.8-14.3); White Blood Cell 6.8 10^3/uL (4.4-10.8)
[2017-11-15 06:31] LABS: INR 1.17 (0.9-1.15); Partial Thromboplastin Time 32.7 sec (23.78-33.04); Prothrombin Time 12.4 sec (9.27-12.13)
[2017-11-15 06:48] LABS: BUN/Creatinine Ratio 23.5; Calcium 8.4 mg/dL (8.5-10.1); Potassium 4.3 mmol/L (3.5-5.1)
[2017-11-15 09:00] VITALS: BP 127/62
[2017-11-15] MEDS: PRO-STAT 64 30ML PO SCH ×2 (10:53→17:52)
[2017-11-15] MEDS: NYSTATIN TOPICAL POWDER 15GM TOP SCH ×2 (10:53→22:10)
[2017-11-15] MEDS: POTASSIUM CHL 20 Meq TABLET PO SCH ×2 (10:53→22:09)
[2017-11-15] MEDS: DOXYCYCLINE 100 MG TAB/CAP PO SCH ×2 (10:53→22:08)
[2017-11-15] MEDS: PANTOPRAZOLE 40 MG TAB PO SCH (10:54)
[2017-11-15] MEDS: HYDROcodone-ACET 5/325MG TAB PO PRN ×3 (12:15→23:31)
[2017-11-15 13:00] VITALS: BP 118/60
[2017-11-15 17:00] VITALS: BP 122/50
[2017-11-15] MEDS ORDERED: WARFARIN SODIUM 5 MG TAB PO ONE (17:00)
[2017-11-15 22:00] VITALS: BP 127/65
[2017-11-16 03:00] VITALS: BP 134/60
[2017-11-16] MEDS: FUROSEMIDE 40 MG/4 ML VIAL IV SCH ×2 (05:27→17:28)
[2017-11-16] MEDS: BOOST PLUS 8 ounce PO SCH ×4 (05:32→21:45)
[2017-11-16 06:05] LABS: Basophils # (auto) 0 uL; Basophils % (auto) 0.5 % (0.0-2.0); Eosinophils # (auto) 0.2 uL; Eosinophils % (auto) 4.1 % (0.0-7.0); Hematocrit 26.4 % (36.0-46.0); Hemoglobin 9.2 g/dL (12.2-16.2); INR 1.19 (0.9-1.15); Lymphocytes # (auto) 0.7 uL; Lymphocytes % (auto) 12.1 % (10.0-50.0); Mean Corpuscular Hemoglobin 30.6 pg (28.0-32.0); Mean Corpuscular Hgb Conc. 34.7 g/dL (32.0-36.0); Monocytes # (auto) 0.7 uL; Monocytes % (auto) 12.7 % (0.0-12.0); Neutrophils # (auto) 3.8 uL; Neutrophils % (auto) 70.6 % (37.0-80.0); Nucleated Red Blood Cells % 0.2 %; Partial Thromboplastin Time 31.7 sec (23.78-33.04); Platelet Count (auto) 177 10^3/uL (140-450); Prothrombin Time 12.6 sec (9.27-12.13); Red Cell Distribution Width 15.6 % (11.8-14.3); White Blood Cell 5.4 10^3/uL (4.4-10.8)
[2017-11-16 06:18] LABS: Albumin 2.3 g/dL (3.4-5.0); BUN/Creatinine Ratio 27.4; Calcium 8.5 mg/dL (8.5-10.1); Potassium 4.1 mmol/L (3.5-5.1)
[2017-11-16 06:22] LABS: Bilirubin, Total 0.8 mg/dL (0.2-1.0); Total Protein 6.7 g/dL (6.4-8.2)
[2017-11-16 09:00] VITALS: BP 111/44
[2017-11-16] MEDS: NYSTATIN TOPICAL POWDER 15GM TOP SCH ×2 (10:03→21:40)
[2017-11-16] MEDS: HYDROcodone-ACET 5/325MG TAB PO PRN ×2 (10:03→17:26)
[2017-11-16] MEDS: PANTOPRAZOLE 40 MG TAB PO SCH (10:05)
[2017-11-16] MEDS: POTASSIUM CHL 20 Meq TABLET PO SCH ×2 (10:05→21:33)
[2017-11-16] MEDS: DOXYCYCLINE 100 MG TAB/CAP PO SCH ×2 (10:05→21:33)
[2017-11-16] MEDS: PRO-STAT 64 30ML PO SCH ×2 (10:05→17:41)
[2017-11-16 13:00] VITALS: BP 127/50
[2017-11-16 17:00] VITALS: BP 115/53
[2017-11-16] MEDS ORDERED: WARFARIN SODIUM 2.5 MG TAB PO ONE (17:00)
[2017-11-16] MEDS ORDERED: KETOROLAC TROMETH 30 MG/ML 1ML VIAL IV ONE (20:30)
[2017-11-16 21:37] VITALS: BP 148/58
[2017-11-16] MEDS: TEMAZEPAM 15 MG CAP PO PRN (23:50)
[2017-11-17 04:43] VITALS: BP 130/56
[2017-11-17] MEDS: BOOST PLUS 8 ounce PO SCH ×4 (06:00→23:04)
[2017-11-17 06:07] LABS: INR 1.2 (0.9-1.15); Partial Thromboplastin Time 28.4 sec (23.78-33.04); Prothrombin Time 12.7 sec (9.27-12.13)
[2017-11-17] MEDS: FUROSEMIDE 40 MG/4 ML VIAL IV SCH ×2 (06:47→18:00)
[2017-11-17] MEDS: HYDROcodone-ACET 5/325MG TAB PO PRN (08:00)
[2017-11-17] MEDS ORDERED: HYDROcodone-ACET 10/325MG TAB PO ONE (08:30)
[2017-11-17] MEDS: PRO-STAT 64 30ML PO SCH ×2 (08:39→18:30)
[2017-11-17 09:00] VITALS: BP 133/49
[2017-11-17] MEDS: NYSTATIN TOPICAL POWDER 15GM TOP SCH ×2 (09:59→23:05)
[2017-11-17] MEDS: POTASSIUM CHL 20 Meq TABLET PO SCH ×2 (09:59→23:05)
[2017-11-17] MEDS: PANTOPRAZOLE 40 MG TAB PO SCH (09:59)
[2017-11-17] MEDS: DOXYCYCLINE 100 MG TAB/CAP PO SCH ×2 (09:59→23:05)
[2017-11-17] MEDS: HYDROcodone-ACET 10/325MG TAB PO PRN ×4 (11:15→23:05)
[2017-11-17 13:00] VITALS: BP 111/44
[2017-11-17 17:00] VITALS: BP 102/35
[2017-11-17] MEDS ORDERED: WARFARIN SODIUM 2.5 MG TAB PO ONE (17:00)
[2017-11-17 22:01] VITALS: BP 125/65
[2017-11-18] MEDS: TEMAZEPAM 15 MG CAP PO PRN ×2 (02:27→22:44)
[2017-11-18 05:13] VITALS: BP 121/66
[2017-11-18 06:21] LABS: INR 1.36 (0.9-1.15); Partial Thromboplastin Time 33.4 sec (23.78-33.04); Prothrombin Time 14.3 sec (9.27-12.13)
[2017-11-18] MEDS: BOOST PLUS 8 ounce PO SCH ×4 (06:23→21:16)
[2017-11-18] MEDS: FUROSEMIDE 40 MG/4 ML VIAL IV SCH ×2 (06:23→17:54)
[2017-11-18] MEDS: PRO-STAT 64 30ML PO SCH ×2 (08:48→17:55)
[2017-11-18 09:02] VITALS: BP 125/64
[2017-11-18] MEDS: HYDROcodone-ACET 10/325MG TAB PO PRN ×2 (10:22→21:17)
[2017-11-18] MEDS: POTASSIUM CHL 20 Meq TABLET PO SCH ×2 (10:22→21:16)
[2017-11-18] MEDS: DOXYCYCLINE 100 MG TAB/CAP PO SCH ×2 (10:22→21:16)
[2017-11-18] MEDS: PANTOPRAZOLE 40 MG TAB PO SCH (10:22)
[2017-11-18] MEDS: NYSTATIN TOPICAL POWDER 15GM TOP SCH ×2 (10:23→21:17)
[2017-11-18 13:21] VITALS: BP 126/64
[2017-11-18] MEDS ORDERED: WARFARIN SODIUM 10 MG TAB PO ONE (17:00)
[2017-11-18] MEDS ORDERED: WARFARIN SODIUM 2.5 MG TAB PO ONE (17:00)
[2017-11-18 17:15] VITALS: BP 110/52
[2017-11-18 21:58] VITALS: BP 122/63
[2017-11-19 05:27] VITALS: BP 108/64
[2017-11-19] MEDS: BOOST PLUS 8 ounce PO SCH ×4 (05:50→21:30)
[2017-11-19] MEDS: FUROSEMIDE 40 MG/4 ML VIAL IV SCH ×2 (05:50→17:32)
[2017-11-19 06:06] LABS: INR 1.54 (0.9-1.15); Partial Thromboplastin Time 33.4 sec (23.78-33.04); Prothrombin Time 16.1 sec (9.27-12.13)
[2017-11-19 06:42] LABS: Albumin 2.6 g/dL (3.4-5.0); BUN/Creatinine Ratio 23.9; Bilirubin, Total 0.9 mg/dL (0.2-1.0); Calcium 9.2 mg/dL (8.5-10.1); Potassium 4.5 mmol/L (3.5-5.1); Total Protein 7.1 g/dL (6.4-8.2)
[2017-11-19] MEDS: PRO-STAT 64 30ML PO SCH ×2 (08:00→18:00)
[2017-11-19 08:51] VITALS: BP 133/56
[2017-11-19] MEDS: NYSTATIN TOPICAL POWDER 15GM TOP SCH ×2 (10:00→21:31)
[2017-11-19] MEDS: POTASSIUM CHL 20 Meq TABLET PO SCH ×2 (10:31→21:31)
[2017-11-19] MEDS: DOXYCYCLINE 100 MG TAB/CAP PO SCH ×2 (10:32→21:31)
[2017-11-19] MEDS: PANTOPRAZOLE 40 MG TAB PO SCH (10:32)
[2017-11-19] MEDS ORDERED: diphenhdrAMINE HCL 25 MG CAP PO ONE (12:30)
[2017-11-19 13:00] VITALS: BP 142/47
[2017-11-19] MEDS ORDERED: WARFARIN SODIUM 2.5 MG TAB PO ONE (17:00)
[2017-11-19] MEDS ORDERED: WARFARIN SODIUM 10 MG TAB PO ONE (17:00)
[2017-11-19] MEDS: diphenhdrAMINE HCL 25 MG CAP PO PRN (19:43)
[2017-11-19 21:43] VITALS: BP 104/59
[2017-11-19] MEDS: HYDROCORTONE 1% TOPICAL CREAM 30 GM TUBE TOP SCH (22:25)
[2017-11-19] MEDS: TEMAZEPAM 15 MG CAP PO PRN (23:53)
[2017-11-20 05:00] VITALS: BP 104/44
[2017-11-20] MEDS: FUROSEMIDE 40 MG/4 ML VIAL IV SCH ×2 (05:59→17:47)
[2017-11-20] MEDS: diphenhdrAMINE HCL 25 MG CAP PO PRN ×2 (05:59→19:43)
[2017-11-20] MEDS: BOOST PLUS 8 ounce PO SCH ×4 (05:59→21:30)
[2017-11-20 07:41] LABS: INR 1.84 (0.9-1.15); Partial Thromboplastin Time 35.6 sec (23.78-33.04)
[2017-11-20] MEDS: PRO-STAT 64 30ML PO SCH ×2 (08:00→17:59)
[2017-11-20 09:46] LABS: Basophils # (auto) 0 uL; Eosinophils # (auto) 0.4 uL; Eosinophils % (auto) 11.4 % (0.0-7.0); Hematocrit 28.9 % (36.0-46.0); Hemoglobin 9.7 g/dL (12.2-16.2); Lymphocytes # (auto) 0.7 uL; Lymphocytes % (auto) 17.2 % (10.0-50.0); Mean Corpuscular Hemoglobin 29.6 pg (28.0-32.0); Mean Corpuscular Hgb Conc. 33.5 g/dL (32.0-36.0); Mean Corpuscular Volume 88.6 fL (80.0-100.0); Monocytes # (auto) 0.4 uL; Monocytes % (auto) 9.4 % (0.0-12.0); Neutrophils # (auto) 2.4 uL; Platelet Count (auto) 202 10^3/uL (140-450); Red Blood Cells 3.27 10^6/uL (4.0-5.20); Red Cell Distribution Width 16.1 % (11.8-14.3); White Blood Cell 3.9 10^3/uL (4.4-10.8)
[2017-11-20 09:59] LABS: INR 1.89 (0.9-1.15); Partial Thromboplastin Time 35.5 sec (23.78-33.04); Prothrombin Time 19.5 sec (9.27-12.13)
[2017-11-20] MEDS: DOXYCYCLINE 100 MG TAB/CAP PO SCH ×2 (10:00→21:31)
[2017-11-20] MEDS: NYSTATIN TOPICAL POWDER 15GM TOP SCH ×2 (10:00→21:31)
[2017-11-20] MEDS: HYDROCORTONE 1% TOPICAL CREAM 30 GM TUBE TOP SCH (10:00)
[2017-11-20 10:02] LABS: BUN/Creatinine Ratio 23.7; Calcium 9.2 mg/dL (8.5-10.1); Potassium 4.1 mmol/L (3.5-5.1)
[2017-11-20] MEDS: PANTOPRAZOLE 40 MG TAB PO SCH (10:42)
[2017-11-20] MEDS: POTASSIUM CHL 20 Meq TABLET PO SCH ×2 (10:42→21:31)
[2017-11-20 13:02] VITALS: BP 132/57
[2017-11-20] MEDS ORDERED: WARFARIN SODIUM 10 MG TAB PO ONE (17:00)
[2017-11-20 17:06] VITALS: BP 110/63
[2017-11-20 22:00] VITALS: BP 126/57
[2017-11-21 05:04] VITALS: BP 117/54
[2017-11-21] MEDS: FUROSEMIDE 40 MG/4 ML VIAL IV SCH ×2 (06:01→18:36)
[2017-11-21] MEDS: BOOST PLUS 8 ounce PO SCH ×2 (06:01→12:48)
[2017-11-21] MEDS: diphenhdrAMINE HCL 25 MG CAP PO PRN (06:02)
[2017-11-21 07:02] LABS: INR 1.86 (0.9-1.15); Partial Thromboplastin Time 36.5 sec (23.78-33.04); Prothrombin Time 19.2 sec (9.27-12.13)
[2017-11-21 07:04] LABS: Anion Gap 13 (5-15); BUN/Creatinine Ratio 24.1; Blood Urea Nitrogen 20 mg/dL (7-18); Calcium 8.8 mg/dL (8.5-10.1); Carbon Dioxide 30 mmol/L (21-32); Chloride 98 mmol/L (98-107); GFR African American 89 mL/min; GFR Non-African American 74 mL/min; Glucose 77 mg/dL (74-106); Sodium 141 mmol/L (136-145)
[2017-11-21 07:38] LABS: Basophils # (auto) 0 uL; Basophils % (auto) 0.6 % (0.0-2.0); Eosinophils # (auto) 0.7 uL; Eosinophils % (auto) 13.9 % (0.0-7.0); Hematocrit 29.2 % (36.0-46.0); Hemoglobin 9.8 g/dL (12.2-16.2); Lymphocytes % (auto) 19.1 % (10.0-50.0); Mean Corpuscular Hemoglobin 29.4 pg (28.0-32.0); Mean Corpuscular Hgb Conc. 33.7 g/dL (32.0-36.0); Mean Corpuscular Volume 87.1 fL (80.0-100.0); Monocytes # (auto) 0.3 uL; Monocytes % (auto) 5.5 % (0.0-12.0); Neutrophils # (auto) 3.1 uL; Neutrophils % (auto) 60.9 % (37.0-80.0); Nucleated Red Blood Cells % 0.3 %; Platelet Count (auto) 208 10^3/uL (140-450); Red Blood Cells 3.35 10^6/uL (4.0-5.20); White Blood Cell 5.1 10^3/uL (4.4-10.8)
[2017-11-21 08:20] VITALS: BP 115/54
[2017-11-21] MEDS: PANTOPRAZOLE 40 MG TAB PO SCH (10:48)
[2017-11-21] MEDS: PRO-STAT 64 30ML PO SCH ×2 (10:48→18:36)
[2017-11-21] MEDS: POTASSIUM CHL 20 Meq TABLET PO SCH ×2 (10:48→22:27)
[2017-11-21] MEDS: HYDROcodone-ACET 10/325MG TAB PO PRN ×2 (10:50→22:27)
[2017-11-21] MEDS: HYDROCORTONE 1% TOPICAL CREAM 30 GM TUBE TOP SCH (10:50)
[2017-11-21 12:36] VITALS: BP 155/73
[2017-11-21] MEDS: hydrOXYzine 25 MG TAB or CAP PO PRN ×2 (13:16→19:48)
[2017-11-21] MEDS ORDERED: WARFARIN SODIUM 2.5 MG TAB PO ONE (17:00)
[2017-11-21] MEDS ORDERED: WARFARIN SODIUM 10 MG TAB PO ONE (17:00)
[2017-11-21 17:07] VITALS: BP 122/56
[2017-11-21 22:00] VITALS: BP 104/45
[2017-11-22 05:43] VITALS: BP 124/50
[2017-11-22] MEDS: hydrOXYzine 25 MG TAB or CAP PO PRN ×2 (06:10→18:01)
[2017-11-22] MEDS: FUROSEMIDE 40 MG/4 ML VIAL IV SCH ×2 (06:15→18:01)
[2017-11-22 06:19] LABS: Basophils # (auto) 0 uL; Basophils % (auto) 0.4 % (0.0-2.0); Eosinophils # (auto) 0.5 uL; Eosinophils % (auto) 11.2 % (0.0-7.0); Hematocrit 28.9 % (36.0-46.0); Hemoglobin 10.1 g/dL (12.2-16.2); Lymphocytes # (auto) 0.8 uL; Mean Corpuscular Hemoglobin 30.9 pg (28.0-32.0); Mean Corpuscular Volume 88.2 fL (80.0-100.0); Monocytes # (auto) 0.4 uL; Monocytes % (auto) 10.2 % (0.0-12.0); Neutrophils # (auto) 2.5 uL; Neutrophils % (auto) 59.2 % (37.0-80.0); Platelet Count (auto) 227 10^3/uL (140-450); Red Blood Cells 3.27 10^6/uL (4.0-5.20); Red Cell Distribution Width 16.9 % (11.8-14.3); White Blood Cell 4.2 10^3/uL (4.4-10.8)
[2017-11-22 06:43] LABS: Calcium 9.3 mg/dL (8.5-10.1); Potassium 3.9 mmol/L (3.5-5.1)
[2017-11-22 06:47] LABS: Albumin 2.6 g/dL (3.4-5.0); BUN/Creatinine Ratio 28.4
[2017-11-22 06:55] LABS: Bilirubin, Total 1.1 mg/dL (0.2-1.0); Total Protein 7.1 g/dL (6.4-8.2)
[2017-11-22 07:01] LABS: INR 2.32 (0.9-1.15); Partial Thromboplastin Time 37.8 sec (23.78-33.04); Prothrombin Time 23.7 sec (9.27-12.13)
[2017-11-22] MEDS: PRO-STAT 64 30ML PO SCH ×2 (08:00→18:00)
[2017-11-22 09:01] VITALS: BP 111/55
[2017-11-22] MEDS: POTASSIUM CHL 20 Meq TABLET PO SCH ×2 (09:54→21:22)
[2017-11-22] MEDS: HYDROCORTONE 1% TOPICAL CREAM 30 GM TUBE TOP SCH (09:56)
[2017-11-22] MEDS: HYDROcodone-ACET 10/325MG TAB PO PRN (10:08)
[2017-11-22 13:28] VITALS: BP 107/51
[2017-11-22] MEDS ORDERED: WARFARIN SODIUM 2.5 MG TAB PO ONE (17:00)
[2017-11-22] MEDS ORDERED: WARFARIN SODIUM 10 MG TAB PO ONE (17:00)
[2017-11-22 17:23] VITALS: BP 123/51
[2017-11-22 22:00] VITALS: BP 110/49
[2017-11-22] MEDS: TEMAZEPAM 15 MG CAP PO PRN (23:16)
[2017-11-23] MEDS: hydrOXYzine 25 MG TAB or CAP PO PRN (04:57)
[2017-11-23 05:00] VITALS: BP 110/47
[2017-11-23] MEDS: FUROSEMIDE 40 MG/4 ML VIAL IV SCH ×2 (05:17→17:59)
[2017-11-23 05:54] LABS: Basophils # (auto) 0 uL; Eosinophils # (auto) 0.4 uL; Eosinophils % (auto) 10.7 % (0.0-7.0); Hematocrit 28.2 % (36.0-46.0); Hemoglobin 9.8 g/dL (12.2-16.2); Lymphocytes % (auto) 24.1 % (10.0-50.0); Mean Corpuscular Hemoglobin 30.5 pg (28.0-32.0); Mean Corpuscular Hgb Conc. 34.6 g/dL (32.0-36.0); Mean Corpuscular Volume 88.1 fL (80.0-100.0); Monocytes # (auto) 0.5 uL; Neutrophils # (auto) 2.2 uL; Neutrophils % (auto) 53.2 % (37.0-80.0); Nucleated Red Blood Cells % 0.2 %; Platelet Count (auto) 247 10^3/uL (140-450); Red Cell Distribution Width 16.4 % (11.8-14.3); White Blood Cell 4.1 10^3/uL (4.4-10.8)
[2017-11-23 06:06] LABS: INR 2.45 (0.9-1.15); Partial Thromboplastin Time 39.4 sec (23.78-33.04); Prothrombin Time 24.9 sec (9.27-12.13)
[2017-11-23 06:13] LABS: Albumin 2.7 g/dL (3.4-5.0); BUN/Creatinine Ratio 24.1; Bilirubin, Total 0.9 mg/dL (0.2-1.0); Potassium 3.7 mmol/L (3.5-5.1); Total Protein 7.3 g/dL (6.4-8.2)
[2017-11-23] MEDS: PRO-STAT 64 30ML PO SCH ×2 (08:00→18:00)
[2017-11-23 09:00] VITALS: BP 134/67
[2017-11-23] MEDS: HYDROCORTONE 1% TOPICAL CREAM 30 GM TUBE TOP SCH (10:00)
[2017-11-23] MEDS: HYDROcodone-ACET 10/325MG TAB PO PRN ×2 (10:23→22:02)
[2017-11-23] MEDS: POTASSIUM CHL 20 Meq TABLET PO SCH ×2 (10:23→22:02)
[2017-11-23 13:00] VITALS: BP 121/54
[2017-11-23 17:00] VITALS: BP 129/54
[2017-11-23] MEDS ORDERED: WARFARIN SODIUM 2.5 MG TAB PO ONE (17:00)
[2017-11-23 20:00] VITALS: BP 115/52
[2017-11-23 22:00] VITALS: BP 115/52
== END 2017-11-23 23:52 | DRG 871 ==
LOC: ER 10:15 → TELE 10:16 → DOU IN ICU 11-03 17:45 → WEST WING 11-12 17:53 → TELE-WESTW 11-12 18:12
PROVIDERS: ADMIT Internal Medicine; ATTEND Internal Medicine Pulmonary Disease
PROC: 4A023N7 Measurement of Cardiac Sampling and Pressure, Left Heart, Percutaneous Approach (ICD-10-PCS; principal; 2017-11-13)
PROC: B2111ZZ Fluoroscopy of Multiple Coronary Arteries using Low Osmolar Contrast (ICD-10-PCS; 2017-11-13)
PROC: 0JH604Z Insertion of Pacemaker, Single Chamber into Chest Subcutaneous Tissue and Fascia, Open Approach (ICD-10-PCS; 2017-11-16)
PROC: 02HK3JZ Insertion of Pacemaker Lead into Right Ventricle, Percutaneous Approach (ICD-10-PCS; 2017-11-16)
PROC: B5171ZZ Fluoroscopy of Left Subclavian Vein using Low Osmolar Contrast (ICD-10-PCS; 2017-11-16)
DX: A41.9 Sepsis, unspecified organism (principal); E43 Unspecified severe protein-calorie malnutrition; J18.9 Pneumonia, unspecified organism; D68.69 Other thrombophilia; L03.311 Cellulitis of abdominal wall; K56.7 Ileus, unspecified; I48.1 Persistent atrial fibrillation; I48.92 Unspecified atrial flutter; K56.609 Unspecified intestinal obstruction, unspecified as to partial versus complete obstruction; Z68.44 Body mass index [BMI] 60.0-69.9, adult; E86.0 Dehydration; E11.21 Type 2 diabetes mellitus with diabetic nephropathy; E66.01 Morbid (severe) obesity due to excess calories; I13.10 Hypertensive heart and chronic kidney disease without heart failure, with stage 1 through stage 4 chronic kidney disease, or unspecified chronic kidney disease; K80.20 Calculus of gallbladder without cholecystitis without obstruction; N18.2 Chronic kidney disease, stage 2 (mild); D64.9 Anemia, unspecified; E11.22 Type 2 diabetes mellitus with diabetic chronic kidney disease; E87.6 Hypokalemia; I45.10 Unspecified right bundle-branch block; I49.5 Sick sinus syndrome; I67.2 Cerebral atherosclerosis; I70.0 Atherosclerosis of aorta; I70.8 Atherosclerosis of other arteries; J45.909 Unspecified asthma, uncomplicated; K58.9 Irritable bowel syndrome, unspecified; L30.4 Erythema intertrigo; M79.3 Panniculitis, unspecified; Z98.49 Cataract extraction status, unspecified eye; Z98.51 Tubal ligation status; Z79.899 Other long term (current) drug therapy
CPT/HCPCS: 36415; 36600; 70450; 71045; 74018; 74176; 74250; 76705; 80048; 80053; 80061; 81001; 82270; 82550; 82805; 83036; 83605; 83880; 84439; 84443; 84481; 84484; 85007; 85014; 85018; 85025; 85027; 85045; 85610; 85652; 85730; 86141; 86850; 86900; 86901; 87040; 87045; 87081; 87899; 92610; 93005; 93306; 93970; 96365; 96367; 96368; 96375; 97110; 97530; 99152; J0690; J1450; J1885; J2250; J2405; J2543; J3430; J3490; J7060; P9047; Q9967

== ENCOUNTER 2018-03-22 12:56 | Inpatient (IN) | payer OTHER, MEDICAID ==
[~2018-03-22] VITALS: Ht 154.9 cm; Wt 114.2 kg
[2018-03-22] MEDS ORDERED: cefTRIAXone 1GM/50ML D5W 50 ML IV ONE (13:15)
[2018-03-22 14:43] LABS: Basophils # (auto) 0 uL; Basophils % (auto) 0.2 % (0.0-2.0); Eosinophils # (auto) 0.1 uL; Eosinophils % (auto) 1.6 % (0.0-7.0); Hematocrit 33.2 % (36.0-46.0); Hemoglobin 11.2 g/dL (12.2-16.2); Lymphocytes # (auto) 0.7 uL; Lymphocytes % (auto) 9.5 % (10.0-50.0); Mean Corpuscular Hemoglobin 29.9 pg (28.0-32.0); Mean Corpuscular Hgb Conc. 33.6 g/dL (32.0-36.0); Monocytes # (auto) 0.7 uL; Monocytes % (auto) 9.1 % (0.0-12.0); Neutrophils # (auto) 5.7 uL; Neutrophils % (auto) 79.6 % (37.0-80.0); Platelet Count (auto) 171 10^3/uL (140-450); Red Blood Cells 3.73 10^6/uL (4.0-5.20); Red Cell Distribution Width 16.7 % (11.8-14.3); White Blood Cell 7.2 10^3/uL (4.4-10.8)
[2018-03-22 14:56] LABS: INR 1.15 (0.9-1.15); Partial Thromboplastin Time 33.1 sec (23.78-33.04); Prothrombin Time 12.2 sec (9.27-12.13)
[2018-03-22 14:59] LABS: Alanine Aminotransferase 16 U/L (13-56); Anion Gap 6 (5-15); Blood Urea Nitrogen 25 mg/dL (7-18); Calcium 9.1 mg/dL (8.5-10.1); Carbon Dioxide 27 mmol/L (21-32); Chloride 103 mmol/L (98-107); Glucose 93 mg/dL (74-106); Magnesium 2.4 mg/dL (1.6-2.6); Potassium 3.8 mmol/L (3.5-5.1); Sodium 136 mmol/L (136-145)
[2018-03-22 15:04] LABS: Alkaline Phosphatase 91 U/L (45-117); Aspartate Aminotransferase 22 U/L (15-37); BUN/Creatinine Ratio 25.3; Bilirubin, Total 2.7 mg/dL (0.2-1.0); GFR African American 73 mL/min; GFR Non-African American 60 mL/min; Total Protein 8.2 g/dL (6.4-8.2)
[2018-03-22] MEDS ORDERED: TETANUS-DIPTH-ACEL PERTUSSIS 0.5ML SYRG IM ONE (16:00)
[2018-03-22] MEDS ORDERED: DEXTROSE (50%) 50ML SYRG IV PRN (16:15)
[2018-03-22] MEDS ORDERED: NITROGLYCERIN 0.4 MG SL TAB SL PRN (16:15)
[2018-03-22] MEDS ORDERED: ACETAMINOPHEN 500 MG TAB PO PRN (16:15)
[2018-03-22] MEDS ORDERED: ONDANSETRON HCL 4 MG/2 ML VIAL IV PRN (16:15)
[2018-03-22] MEDS ORDERED: LORazepam 0.5 MG TAB PO PRN (16:15)
[2018-03-22] MEDS ORDERED: MORPHINE SULFATE 4 MG/ML SYR/VIAL IV PRN ×2 (16:15)
[2018-03-22 17:00] VITALS: BP 131/65
[2018-03-22] MEDS: ACCU-CHEK COMFORT CURVE STRIP VI SCH ×2 (17:00→21:44)
[2018-03-22] MEDS: InsuLIN REG 1unit/0.01ml Soln (100units/ml) SC SCH ×2 (17:00→21:43)
[2018-03-22] MEDS: FUROSEMIDE 40 MG TAB PO SCH (17:57)
[2018-03-22] MEDS: CLINDAMYCIN 600MG IV 50 ML IV SCH (17:58)
[2018-03-22] MEDS ORDERED: IBUP800T24 PO (18:18)
[2018-03-22] MEDS ORDERED: POTA20TA53 PO (18:18)
[2018-03-22] MEDS ORDERED: LOSA25TA40 PO (18:18)
[2018-03-22] MEDS ORDERED: APIX5TAB OR (18:18)
[2018-03-22] MEDS ORDERED: ONDA-155 PO (18:18)
[2018-03-22] MEDS ORDERED: FURO40TA PO (18:18)
[2018-03-22 18:20] VITALS: BP 131/65
[2018-03-22] MEDS: HYDROcodone-ACET 5/325MG TAB PO PRN (20:51)
[2018-03-22] MEDS: POTASSIUM EFFERVESENT TAB 25 MEQ GT SCH (21:43)
[2018-03-22] MEDS: TEMAZEPAM 15 MG CAP PO PRN (21:43)
[2018-03-22 22:00] VITALS: BP 109/49
[2018-03-23] MEDS: CLINDAMYCIN 600MG IV 50 ML IV SCH ×3 (01:05→18:06)
[2018-03-23] MEDS: FUROSEMIDE 40 MG TAB PO SCH ×2 (06:04→18:06)
[2018-03-23] MEDS: ACCU-CHEK COMFORT CURVE STRIP VI SCH ×4 (06:04→21:42)
[2018-03-23] MEDS: InsuLIN REG 1unit/0.01ml Soln (100units/ml) SC SCH ×4 (06:04→21:41)
[2018-03-23 06:30] VITALS: BP 100/57
[2018-03-23 08:36] VITALS: BP 109/73
[2018-03-23] MEDS: POTASSIUM EFFERVESENT TAB 25 MEQ GT SCH ×2 (09:59→21:41)
[2018-03-23] MEDS: PANTOPRAZOLE 40 MG TAB PO SCH (09:59)
[2018-03-23] MEDS: cefTRIAXone 1GM/50ML D5W 50 ML IV SCH (10:00)
[2018-03-23] MEDS ORDERED: diphenhdrAMINE-ZINC ACETATE 1 APPLIC APPL TOP PRN (12:00)
[2018-03-23 13:00] VITALS: BP 114/48
[2018-03-23] MEDS: ENOXAPARIN SOD 40 MG/0.4 ML SYRINGE SC SCH (15:06)
[2018-03-23 17:00] VITALS: BP 117/45
[2018-03-23] MEDS: TEMAZEPAM 15 MG CAP PO PRN (21:41)
[2018-03-23] MEDS: HYDROcodone-ACET 5/325MG TAB PO PRN (21:41)
[2018-03-23 22:00] VITALS: BP 119/56
[2018-03-24] MEDS: CLINDAMYCIN 600MG IV 50 ML IV SCH ×3 (01:55→18:18)
[2018-03-24 05:00] VITALS: BP 110/59
[2018-03-24] MEDS: InsuLIN REG 1unit/0.01ml Soln (100units/ml) SC SCH ×4 (06:35→21:53)
[2018-03-24] MEDS: FUROSEMIDE 40 MG TAB PO SCH ×2 (06:35→18:17)
[2018-03-24] MEDS: ACCU-CHEK COMFORT CURVE STRIP VI SCH ×4 (06:36→21:53)
[2018-03-24 08:45] VITALS: BP 104/52
[2018-03-24] MEDS: PANTOPRAZOLE 40 MG TAB PO SCH (09:32)
[2018-03-24] MEDS: POTASSIUM EFFERVESENT TAB 25 MEQ GT SCH ×2 (09:32→21:53)
[2018-03-24] MEDS: ENOXAPARIN SOD 40 MG/0.4 ML SYRINGE SC SCH (09:33)
[2018-03-24] MEDS: cefTRIAXone 1GM/50ML D5W 50 ML IV SCH (09:33)
[2018-03-24 12:49] VITALS: BP 114/52
[2018-03-24 16:57] VITALS: BP 108/51
[2018-03-24] MEDS: HYDROcodone-ACET 5/325MG TAB PO PRN (21:54)
[2018-03-24 22:00] VITALS: BP 119/61
[2018-03-25] MEDS: CLINDAMYCIN 600MG IV 50 ML IV SCH ×3 (02:01→18:34)
[2018-03-25 05:00] VITALS: BP 120/65
[2018-03-25] MEDS: FUROSEMIDE 40 MG TAB PO SCH ×4 (06:09→18:50)
[2018-03-25] MEDS: ACCU-CHEK COMFORT CURVE STRIP VI SCH ×4 (06:31→22:25)
[2018-03-25] MEDS: InsuLIN REG 1unit/0.01ml Soln (100units/ml) SC SCH ×4 (06:31→22:25)
[2018-03-25 08:47] VITALS: BP 112/43
[2018-03-25] MEDS: POTASSIUM EFFERVESENT TAB 25 MEQ GT SCH ×2 (10:07→22:29)
[2018-03-25] MEDS: PANTOPRAZOLE 40 MG TAB PO SCH (10:07)
[2018-03-25] MEDS: cefTRIAXone 1GM/50ML D5W 50 ML IV SCH (10:07)
[2018-03-25] MEDS: ENOXAPARIN SOD 40 MG/0.4 ML SYRINGE SC SCH (10:08)
[2018-03-25 12:32] VITALS: BP 116/38
[2018-03-25 17:07] VITALS: BP 108/53
[2018-03-25 22:00] VITALS: BP 111/64
[2018-03-25] MEDS: APIXABAN 5 MG TAB PO SCH (22:29)
[2018-03-26] MEDS: CLINDAMYCIN 600MG IV 50 ML IV SCH ×2 (02:00→10:49)
[2018-03-26 05:00] VITALS: BP 109/40
[2018-03-26] MEDS: FUROSEMIDE 40 MG TAB PO SCH (06:00)
[2018-03-26] MEDS: InsuLIN REG 1unit/0.01ml Soln (100units/ml) SC SCH ×3 (06:44→17:00)
[2018-03-26] MEDS: ACCU-CHEK COMFORT CURVE STRIP VI SCH ×3 (06:47→17:00)
[2018-03-26 08:00] VITALS: BP 113/53
[2018-03-26] MEDS: POTASSIUM EFFERVESENT TAB 25 MEQ GT SCH (10:49)
[2018-03-26] MEDS: APIXABAN 5 MG TAB PO SCH (10:49)
[2018-03-26] MEDS: PANTOPRAZOLE 40 MG TAB PO SCH (10:49)
[2018-03-26] MEDS: cefTRIAXone 1GM/50ML D5W 50 ML IV SCH (10:49)
[2018-03-26 12:33] VITALS: BP 115/57
[2018-03-26 16:33] VITALS: BP 146/67
[2018-03-26 17:08] VITALS: BP 115/57
== END 2018-03-26 18:20 | disposition home or self-care (01) | DRG 602 ==
LOC: EDBD 12:56 → ER 12:56 → TELE 15:25 → TELE-WESTW 17:36
PROVIDERS: ADMIT Internal Medicine; ATTEND Family Medicine
DX: L03.115 Cellulitis of right lower limb (principal); I50.43 Acute on chronic combined systolic (congestive) and diastolic (congestive) heart failure; Z68.42 Body mass index [BMI] 45.0-49.9, adult; I48.92 Unspecified atrial flutter; I42.9 Cardiomyopathy, unspecified; I11.0 Hypertensive heart disease with heart failure; L03.116 Cellulitis of left lower limb; E11.9 Type 2 diabetes mellitus without complications; E66.01 Morbid (severe) obesity due to excess calories; I25.10 Atherosclerotic heart disease of native coronary artery without angina pectoris; G56.00 Carpal tunnel syndrome, unspecified upper limb; E78.5 Hyperlipidemia, unspecified; H91.90 Unspecified hearing loss, unspecified ear; I48.91 Unspecified atrial fibrillation; J45.909 Unspecified asthma, uncomplicated; Z79.01 Long term (current) use of anticoagulants; Z82.0 Family history of epilepsy and other diseases of the nervous system; Z82.49 Family history of ischemic heart disease and other diseases of the circulatory system; Z82.5 Family history of asthma and other chronic lower respiratory diseases; Z95.0 Presence of cardiac pacemaker; Z98.42 Cataract extraction status, left eye; Z98.41 Cataract extraction status, right eye; F41.9 Anxiety disorder, unspecified; G47.00 Insomnia, unspecified; D64.9 Anemia, unspecified
CPT/HCPCS: 36415; 71045; 80053; 82962; 83036; 83605; 83735; 83880; 84443; 84484; 85025; 85610; 85652; 85730; 87040; 90471; 90715; 93005; 93970; 96374; A6257; G0378; J0696; J1815; J3490

== ENCOUNTER 2018-10-11 13:08 | Inpatient (IN) | payer OTHER, MEDICAID ==
[~2018-10-11] VITALS: Ht 160 cm; Wt 115.6 kg
[~2018-10-11 13:08] MED LIST: APIX5TAB OR; FURO40TA PO; IBUP800T24 PO; LOSA25TA40 PO; ONDA-155 PO; POTA20TA53 PO
[2018-10-11] MEDS ORDERED: SODIUM CHLORIDE 0.9% 1,000 ML IV ONE (13:14)
[2018-10-11 14:08] LABS: Basophils # (auto) 0 uL; Basophils % (auto) 0.1 % (0.0-2.0); Eosinophils # (auto) 0 uL; Hematocrit 36.7 % (36.0-46.0); Hemoglobin 12.2 g/dL (12.2-16.2); Lymphocytes # (auto) 0.7 uL; Lymphocytes % (auto) 6.7 % (10.0-50.0); Mean Corpuscular Hemoglobin 29.2 pg (28.0-32.0); Mean Corpuscular Hgb Conc. 33.2 g/dL (32.0-36.0); Monocytes # (auto) 0.6 uL; Monocytes % (auto) 5.7 % (0.0-12.0); Neutrophils # (auto) 9.6 uL; Neutrophils % (auto) 87.5 % (37.0-80.0); Platelet Count (auto) 134 10^3/uL (140-450); Red Blood Cells 4.17 10^6/uL (4.0-5.20); White Blood Cell 10.9 10^3/uL (4.4-10.8)
[2018-10-11 14:21] LABS: INR 1.45 (0.9-1.15); Partial Thromboplastin Time 37.8 sec (23.78-33.04); Prothrombin Time 15.2 sec (9.27-12.13)
[2018-10-11 14:27] LABS: Lactic Acid w/Reflex 3.3 mmol/L (0.4-2.0)
[2018-10-11 14:30] LABS: Albumin 3.1 g/dL (3.4-5.0); Calcium 8.9 mg/dL (8.5-10.1); Potassium 3.6 mmol/L (3.5-5.1)
[2018-10-11 14:37] LABS: BUN/Creatinine Ratio 20.2; Bilirubin, Total 2.8 mg/dL (0.2-1.0)
[2018-10-11] MEDS ORDERED: MORPHINE SULFATE 4 MG/ML SYR/VIAL IV PRN (15:00)
[2018-10-11] MEDS ORDERED: NITROGLYCERIN 0.4 MG SL TAB SL PRN (15:00)
[2018-10-11] MEDS ORDERED: PROMETHAZINE HCL 25 MG/ML 1ML IV PRN (15:00)
[2018-10-11] MEDS ORDERED: MORPHINE SULF INJ 2 MG/ML SYRINGE 1ML IV PRN (15:00)
[2018-10-11] MEDS ORDERED: ALBUTEROL SULF 2.5 MG/0.5ML(0.5%) NEB SOLN NEB PRN (15:00)
[2018-10-11] MEDS ORDERED: DEXTROSE (50%) 50ML SYRG IV PRN (15:00)
[2018-10-11] MEDS ORDERED: ACETAMINOPHEN 500 MG TAB PO PRN (15:00)
[2018-10-11] MEDS ORDERED: TEMAZEPAM 15 MG CAP PO PRN (15:00)
[2018-10-11] MEDS ORDERED: LACTULOSE 20Gm/30ML SOLN PO PRN (15:00)
[2018-10-11] MEDS ORDERED: LEVOFLOXACIN 500MG 100 ML IV SCH (15:15)
[2018-10-11] MEDS: LEVOFLOXACIN 500MG 100 ML IV SCH (15:26)
[2018-10-11 15:59] LABS: Urine Bacteria FEW /hpf (None Seen); Urine Blood Negative /uL (Negative); Urine Hyaline Cast MANY /lpf (0 - 2); Urine Mucus FEW (None Seen); Urine Specific Gravity 1.016 (1.001-1.035); Urine WBC 3 /hpf (0 - 5)
[2018-10-11 16:31] VITALS: BP 156/51
[2018-10-11] MEDS: InsuLIN REG 1unit/0.01ml Soln (100units/ml) SC SCH ×2 (17:00→21:45)
[2018-10-11] MEDS: CLINDAMYCIN 600MG IV 50 ML IV SCH (17:30)
[2018-10-11] MEDS: ACCU-CHEK COMFORT CURVE STRIP VI SCH ×2 (17:38→21:45)
[2018-10-11] MEDS: IPRATROPIUM BROM 0.5 MG/2.5ML INH SOL NEB SCH (18:21)
[2018-10-11] MEDS: ALBUTEROL SULF 2.5 MG/0.5ML(0.5%) NEB SOLN NEB SCH (18:21)
[2018-10-11] MEDS: FUROSEMIDE 40 MG/4 ML VIAL IV SCH (18:25)
--- NOTE | 2018-10-11 19:15 | NUR ---
ASSUMED CARE, PT. AWAKE, ALERT AND ORIENTED, NO C/O PAIN AND DISCOMFORT, BILAT. LEGS EDEMATOUS AND REDNESS, NOT IN DISTRESS.
[2018-10-11] MEDS: APIXABAN 5 MG TAB PO SCH (21:44)
[2018-10-11] MEDS: ATORVASTATIN 20 MG TAB PO SCH (21:44)
[2018-10-11] MEDS: POTASSIUM CHL 20 Meq TABLET PO SCH (21:44)
[2018-10-11 22:00] VITALS: BP 106/46
[2018-10-11] MEDS ORDERED: FUROSEMIDE 60 MG PO SCH (22:00)
[2018-10-12] MEDS: ALBUTEROL SULF 2.5 MG/0.5ML(0.5%) NEB SOLN NEB SCH ×5 (00:20→23:41)
[2018-10-12] MEDS: IPRATROPIUM BROM 0.5 MG/2.5ML INH SOL NEB SCH ×5 (00:20→23:41)
[2018-10-12] MEDS: CLINDAMYCIN 600MG IV 50 ML IV SCH ×3 (00:33→17:00)
[2018-10-12 04:56] VITALS: BP 123/36
[2018-10-12] MEDS: FUROSEMIDE 40 MG/4 ML VIAL IV SCH ×2 (05:36→17:36)
[2018-10-12] MEDS: InsuLIN REG 1unit/0.01ml Soln (100units/ml) SC SCH ×4 (06:04→22:00)
[2018-10-12] MEDS: ACCU-CHEK COMFORT CURVE STRIP VI SCH ×4 (06:05→22:04)
--- NOTE | 2018-10-12 07:30 | NUR ---
Opening Shift Note Assumed care of patient, awake and alert. No S/S of distress/SOB or pain. Instructed on POC and to call for assist PRN, will continue to monitor for changes Q1hr and PRN.
[2018-10-12 09:00] VITALS: BP 126/53
[2018-10-12] MEDS: traMADol HCL 50 MG TAB PO PRN (09:23)
[2018-10-12] MEDS: APIXABAN 5 MG TAB PO SCH ×2 (09:26→22:02)
[2018-10-12] MEDS: PANTOPRAZOLE 40 MG TAB PO SCH (09:26)
[2018-10-12] MEDS: POTASSIUM CHL 20 Meq TABLET PO SCH ×2 (09:32→22:02)
[2018-10-12] MEDS: LOSARTAN POTASSIUM 25 MG TAB PO SCH (10:00)
--- NOTE | 2018-10-12 12:15 | NUR ---
DR RODRIGUEZ AT BEDSIDE. AWARE THAT PT HAD A BIGEMINAL PVC'S THIS AM. ORDERED TO CONTACT [facility] TO HAVE PT'S PACEMAKER CHECKED.
[2018-10-12 13:00] VITALS: BP 128/66
--- NOTE | 2018-10-12 13:20 | NUR ---
CALLED [facility]. SPOKE TO KAIA. PER KAIA, SOMEONE WILL COME IN TODAY TO CHECK PT'S PACEMAKER.
--- NOTE | 2018-10-12 14:35 | NUR ---
LAKSHMI FROM [facility] AT BEDSIDE.
[2018-10-12 17:00] VITALS: BP 132/54
[2018-10-12] MEDS: LEVOFLOXACIN 500MG 100 ML IV SCH (17:34)
--- NOTE | 2018-10-12 19:15 | NUR ---
Opening Shift Note Received report from lucero Vera RN. Assumed care of patient, awake and alert. No S/S of distress/SOB or pain. Instructed on POC and to call for assist PRN, will continue to monitor for changes Q1hr and PRN. Bed placed in lowest position, bed alarm turned on and call light within reach.
[2018-10-12 21:30] VITALS: BP 101/53
[2018-10-12] MEDS: ATORVASTATIN 20 MG TAB PO SCH (22:03)
--- NOTE | 2018-10-12 23:30 | NUR ---
ROUNDS PATIENT HAD AN EPISODE OF INCONTINENCE OF BOWEL MOVEMENT. ASSISTED IN CLEANING AND APPLIED CREAM TO ABD FOLDS, UNDER BREAST AREA AND NANDINI AREA.
[2018-10-13] MEDS: traMADol HCL 50 MG TAB PO PRN (00:43)
[2018-10-13] MEDS: CLINDAMYCIN 600MG IV 50 ML IV SCH ×3 (00:47→17:21)
[2018-10-13 04:30] VITALS: BP 94/43
--- NOTE | 2018-10-13 05:00 | NUR ---
PATIENT REFUSED TO BE REPOSITIONED, STATES SHE JUST WANT TO SLEEP ON HER BACK. WILL TRY AGAIN LATER
--- NOTE | 2018-10-13 05:13 | NUR ---
ROUNDS PATIENT IS RESTING IN BED WITH EYES CLOSED. NO DISTRESS NOTED. PATIENT'S RESPIRATIONS ARE 18, EVEN AND UNLABORED, O2 SATURATION 90% ON 2L NASAL CANAL. NO COMPLAINTS OF PAIN. BED IN LOWEST LOCKED POSITION. WILL CONTINUE TO MONITOR Signed: 10/13/18 at 05 by BUTCH NEGRETE SN <Co-Signature Required> Co-Signed: 10/13/18 at 515 by HILARY MEJIA RN RN
--- NOTE | 2018-10-13 06:00 | NUR ---
ROUNDS NOTED AN ABRASION TO MID BUTTOCKS AND REDNESS TO NANDINI AREA. REPOSITIONED PATIENT AND OFFERED TO PLACE PILLOWS TO SIDES, BUT PATIENT REFUSED. PATIENT ALSO REFUSED TO HAVE PHOTOS TAKEN TO BUTTOCKS. PATIENT STATES "IT'S INVASION OF PRIVACY". WILL LET DAY NURSE KNOW.
[2018-10-13] MEDS ORDERED: LORA10CA12 PO (06:07)
[2018-10-13] MEDS: ACCU-CHEK COMFORT CURVE STRIP VI SCH ×4 (06:08→22:26)
[2018-10-13] MEDS: InsuLIN REG 1unit/0.01ml Soln (100units/ml) SC SCH ×4 (06:08→22:25)
[2018-10-13] MEDS: FUROSEMIDE 40 MG/4 ML VIAL IV SCH ×2 (06:08→17:21)
--- NOTE | 2018-10-13 06:50 | NUR ---
DRESSING APPLICATION PATIENT REFUSED TO APPLY DRESSING TO MID SACRAL ABRASION.
[2018-10-13] MEDS: IPRATROPIUM BROM 0.5 MG/2.5ML INH SOL NEB SCH ×4 (07:19→23:21)
[2018-10-13] MEDS: ALBUTEROL SULF 2.5 MG/0.5ML(0.5%) NEB SOLN NEB SCH ×4 (07:19→23:22)
[2018-10-13 09:00] VITALS: BP 115/61
[2018-10-13] MEDS: PANTOPRAZOLE 40 MG TAB PO SCH (09:20)
[2018-10-13] MEDS: APIXABAN 5 MG TAB PO SCH ×2 (09:20→22:24)
[2018-10-13] MEDS: LOSARTAN POTASSIUM 25 MG TAB PO SCH (10:00)
--- NOTE | 2018-10-13 10:00 | NUR ---
DR SPENCE AT BEDSIDE.
--- NOTE | 2018-10-13 10:55 | NUR ---
WOUND CARE CONSULT ORDERED PT HAVE ABRASION AND REDNESS ON SACRAL AREA. PT STATED THAT SHE CAN TURN WITH OR WITHOUT ASSIST BUT FEELS VERY COMFORTABLE ON HER BACK. PT INFORMED THAT SHE NEEDS TO TURN FREQUENTLY DUE TO RISK OF DEVELOPING SORE AND OTHER SKIN ISSUES FROM PROLONGED IMMOBILITY. PT WAS ASSISTED TO A BEDSIDE COMMODE TODAY. PHYSICAL THERAPY EVAL ORDERED. PT AWARE THAT SHE WILL NEED TO GET OUT OF BED DURING THE DAY AND SIT ON A CHAIR FOR LONG SHE CAN TOLERATE
[2018-10-13] MEDS: POTASSIUM CHL 20 Meq TABLET PO SCH ×2 (12:33→22:24)
[2018-10-13 13:00] VITALS: BP 116/59
[2018-10-13] MEDS: LEVOFLOXACIN 250MG 50 ML IV SCH (15:25)
[2018-10-13 17:00] VITALS: BP 123/63
--- NOTE | 2018-10-13 17:51 | NUR ---
Rounds Patient awake and alert. EATING DINNER. No S/S of distress/SOB or pain. Will continue to monitor changes q1hr and PRN.
--- NOTE | 2018-10-13 20:20 | NUR ---
ASSESSMENT Patient is resting in bed. A&Ox4. On 2lpm via NC. Patient has a dry cough, but denies any SOB. Reports 9/10 lower back pain described as chronic aching. Diamond catheter in place nd draining to gravity. 20 gauge IV placed on 10/11/18 to right AC present and flushed with NS. Bed is in low locked position and call light is within reach. POC disused with patient, who verbalizes understanding. Pt instructed to call for assistance with transfers. Erythema to lower legs noted with warmth to the left lower leg. Open area of erythema to left gluteal fold. Patient refuses to be turned. Risks of immobility explained to patient. Will continue to monitor PRN.
[2018-10-13 22:04] VITALS: BP 103/51
[2018-10-13] MEDS: ATORVASTATIN 20 MG TAB PO SCH (22:25)
--- NOTE | 2018-10-14 00:30 | NUR ---
BIFOCAL PVCS Received call from [facility] stating that patient was going in and out of bifocal PVCs. Patient is sitting in bed watching TV, A&Ox4. Denies any chest pain or shortness of breath. Will continue to monitor Q1 hour.
[2018-10-14] MEDS: CLINDAMYCIN 600MG IV 50 ML IV SCH ×3 (01:14→18:28)
[2018-10-14] MEDS: FUROSEMIDE 40 MG/4 ML VIAL IV SCH ×2 (05:35→17:57)
[2018-10-14 05:46] VITALS: BP 96/51
[2018-10-14] MEDS: ACCU-CHEK COMFORT CURVE STRIP VI SCH ×4 (06:18→22:07)
[2018-10-14] MEDS: InsuLIN REG 1unit/0.01ml Soln (100units/ml) SC SCH ×4 (06:20→22:00)
[2018-10-14] MEDS: ALBUTEROL SULF 2.5 MG/0.5ML(0.5%) NEB SOLN NEB SCH ×3 (06:25→18:50)
[2018-10-14] MEDS: IPRATROPIUM BROM 0.5 MG/2.5ML INH SOL NEB SCH ×3 (06:25→18:50)
--- NOTE | 2018-10-14 07:47 | NUR ---
OPENING SHIFT NOTE ASSUMED CARE OF PATIENT, ALERT AND ORIENTED WITH HOB GREATER THAN 30 DEGREES, BED BRAKES IN LOCKED POSITION, BED RAILS UP X 2. PATIENT HAS NO C/O PAIN OR SHORTNESS OF BREATH, ADVISED TO USE CALL LIGHT PRN, CONTINUING TO MONITOR PATIENT Q1 HOUR
[2018-10-14 09:00] VITALS: BP 102/52
[2018-10-14] MEDS: APIXABAN 5 MG TAB PO SCH ×2 (09:45→22:05)
[2018-10-14] MEDS: LOSARTAN POTASSIUM 25 MG TAB PO SCH (09:47)
[2018-10-14] MEDS: POTASSIUM CHL 20 Meq TABLET PO SCH ×2 (09:48→22:06)
[2018-10-14] MEDS: PANTOPRAZOLE 40 MG TAB PO SCH (09:48)
[2018-10-14] MEDS ORDERED: FUROSEMIDE 20 MG TAB PO SCH (10:00)
--- NOTE | 2018-10-14 10:00 | NUR ---
WOUND CARE AT BEDSIDE, PATIENT HAS SMALL SCRATCH/FRICTION LIKE MARKINGS TO SACRUM, PER WOUND CARE NURSE COVERED WITH FOAM DRESSING
--- NOTE | 2018-10-14 10:05 | NUR ---
DR SPENCE AT BEDSIDE EDUCATED PATIENT ON CURRENT POC AND NEED FOR SENSITIVITY RESULTS FROM LAB
--- NOTE | 2018-10-14 10:30 | NUR ---
PHYSICAL THERAPY REFUSED
--- NOTE | 2018-10-14 11:00 | NUR ---
WOUND CARE NOTE: IN TO SEE PATIENT AT THIS TIME PER WOUND CARE CONSULT REQUEST. PATIENT WAS NOTED UPON ADMIT TO HAVE WOUNDS TO SACRUM/BUTTOCK. PATIENT REFUSED TO ALLOW PHOTO OF WOUNDS AT THAT TIME PER BEDSIDE NURSE NOTES. PATIENT ADMITTED TO [facility] WITH DIAGNOSIS CHF, NON STEMI ME. CURRENT NO SCORE IS 13. PATIENT IS OBESE, CAN ASSIST WITH HER TURNING/REPOSITIONING, BUT REQUIRES ASSISTANCE D/T HER BODY HABITUS. PATIENT STATES THAT SHE AMBULATES AT HOME WITH THE USE OF A WALKER. PATIENT NOTED TO HAVE A SCABBED ABRASION TO THE RIGHT BUTTOCK, AND PARTIAL THICKNESS FISSURE TO INTRAGLUTEAL FOLD OVER MOISTURE RELATED SKIN DAMAGE. WOUND PHOTO TAKEN AT THIS TIME FOR REFERENCE. PATIENT EDUCATED ON NEED TO REDISTRIBUTE PRESSURE SHE'S BEEN REFUSING TURNING AT TIMES. PATIENT VERBALIZED UNDERSTANDING. RECOMMEND: BID/PRN APPLICATION WITH ZGUARD, OPTIFOAM GENTLE SACRAL DRESSING, FREQUENT TURN SCHEDULE Q 2 HOURS, PRN CONDITION PERMITS, WITH PRESSURE REDISTRIBUTION USING PILLOWS/WEDGES, DIETARY CONSULT FOR WOUNDS, ELEVATION OF BLE FOR EDEMA CONTROL OF HER CELLULITIC BILATERAL LOWER EXTREMITIES (INTACT/ERYTHEMIC), SKIN/WOUND CARE PLAN, CONTINUED MONITORING BY WOUND CARE TEAM. Addendum: 10/14/18 at 1716 by Jeanie Hernandez RN Amended: Links added.
[2018-10-14 11:10] VITALS: BP 102/52
--- NOTE | 2018-10-14 11:10 | NUR ---
LAB SENSITIVITY CONTACTED LAB AND SPOKE WITH JAZMINE RODGERS IN REGARDS TO SENSITIVTY REPORT, SHE STATED IT WOULD NOT BE READY UNTIL TOMORROW
[2018-10-14 13:00] VITALS: BP 121/69
--- NOTE | 2018-10-14 13:44 | NUR ---
FAMILY UPDATE PT DAUGHTER ALE AT BEDSIDE REQUESTING AN UPDATE, PATIENT AND FAMILY EDUCATED ON DM MANAGEMENT AND POC
[2018-10-14] MEDS: LEVOFLOXACIN 250MG 50 ML IV SCH (15:51)
[2018-10-14 17:00] VITALS: BP 125/51
--- NOTE | 2018-10-14 20:00 | NUR ---
OPENING SHIFT NOTE: Assumed care of patient. Patient is A&Ox4. No s/s of distress at this time. C/O itching. Lower legs are edematous. Left lower leg is red, warm and tender. Pulses are present and strong in bilateral lower extremities. Patient requests assistance with hygiene care and linen change. Mauricio catheter in place and draining to gravity. Discussed POC with patient who verbalizes understanding. Bed in low locked position adn call light within reach. Will continue to monitor PRN.
--- NOTE | 2018-10-14 21:00 | NUR ---
Patient transferred to chair at bedside via two person assist. Patient assisted in bathing and michelle-care. Linens and gown changed. Patient transferred back into bed. Purple discoloration to right buttock and posterior thigh noted. Patient educated on the importance of turning to reduce pressure. Patient verbalizes understanding. Abrasion to sacral area cleansed and covered with foam dressing. Patient positioned onto right side. Patient tolerates care well. Bed placed in low locked position and call light left within reach. Will continue to monitor PRN.
[2018-10-14 22:00] VITALS: BP 133/63
[2018-10-14] MEDS: ATORVASTATIN 20 MG TAB PO SCH (22:06)
--- NOTE | 2018-10-15 00:45 | NUR ---
PT REFUSED HER 0000 SCHEDULED TX. STATES SHE'S TOO SLEEPY TO TAKE IT. NO DISTRESS NOTED. SHE IS AWARE TO CALL IF SHE FEELS SOB OR CHANGES HER MIND.
[2018-10-15] MEDS: IPRATROPIUM BROM 0.5 MG/2.5ML INH SOL NEB SCH ×3 (00:46→12:38)
[2018-10-15] MEDS: ALBUTEROL SULF 2.5 MG/0.5ML(0.5%) NEB SOLN NEB SCH ×3 (00:46→12:38)
[2018-10-15] MEDS: CLINDAMYCIN 600MG IV 50 ML IV SCH ×2 (00:57→09:43)
[2018-10-15] MEDS: traMADol HCL 50 MG TAB PO PRN (02:32)
[2018-10-15 05:39] VITALS: BP 115/51
[2018-10-15] MEDS: FUROSEMIDE 40 MG/4 ML VIAL IV SCH (06:00)
[2018-10-15] MEDS: InsuLIN REG 1unit/0.01ml Soln (100units/ml) SC SCH ×2 (07:00→11:30)
--- NOTE | 2018-10-15 07:10 | NUR ---
OPENING SHIFT NOTE ASSUMED CARE FOR PATIENT, SHE PRESENTS SITTING IN BEAD WITH HOB GREATER THAN 30 DEGREES, DENIES ANY C/O SOB OR PAIN. EDUCATED PATIENT ON POC FOR TODAY AND TO CONTACT PRN. BED IN LOWEST POSITION AND WITH BRAKE ON, BEDRAILS UP X 2, CONTINUING TO MONITOR PATIENT Q1 HOUR
[2018-10-15] MEDS: ACCU-CHEK COMFORT CURVE STRIP VI SCH ×2 (07:12→12:15)
[2018-10-15 09:00] VITALS: BP 108/61
[2018-10-15] MEDS: POTASSIUM CHL 20 Meq TABLET PO SCH (09:41)
[2018-10-15] MEDS: APIXABAN 5 MG TAB PO SCH (09:41)
[2018-10-15] MEDS: PANTOPRAZOLE 40 MG TAB PO SCH (09:41)
[2018-10-15] MEDS: LOSARTAN POTASSIUM 25 MG TAB PO SCH (09:42)
[2018-10-15 13:00] VITALS: BP 118/51
[2018-10-15 13:26] VITALS: BP 108/61
--- NOTE | 2018-10-15 14:00 | NUR ---
assessment Per consult transportation. Patient has been provided with a taxi voucher. Addendum: 10/15/18 at 1401 by Jasmin Ross Amended: Links added.
--- NOTE | 2018-10-15 14:45 | NUR ---
Cool catheter dc'd Order to discontinue cool catheter. Cool dc'd with clean technique following deflation of balloon. Patient tolerated well with no complaints of pain. Continue care.
[2018-10-15] MEDS: LEVOFLOXACIN 250MG 50 ML IV SCH (15:00)
--- NOTE | 2018-10-15 15:15 | NUR ---
IV removal IV DC'd with clean sterile technique, catheter fully intact. Pressure dressing applied to site. Patient tolerated well.
--- NOTE | 2018-10-15 15:47 | NUR ---
[facility] CONTACT [facility] CONTACTED, ETA IS 20-30 MINUTES
--- NOTE | 2018-10-15 16:35 | NUR ---
DISCHARGE PATIENT LEFT THE UNIT, VIA WHEELCHAIR AND ESCORTED BY MYSELF AND HAYDEE RN TO [facility], PATIENT TRANSPORTED TO AND SAFELY SEATED IN VEHICLE ALONG WITH ALL BELONGINGS
== END 2018-10-15 16:35 | disposition home or self-care (01) | DRG 871 ==
LOC: EDBD 13:08 → ER 13:12 → TELE 14:55 → TELE-WESTW 17:18
PROVIDERS: ADMIT Internal Medicine; ATTEND Family Medicine
PROC: 4B02XSZ Measurement of Cardiac Pacemaker, External Approach (ICD-10-PCS; principal; 2018-10-11)
DX: A41.89 Other specified sepsis (principal); I50.33 Acute on chronic diastolic (congestive) heart failure; L03.116 Cellulitis of left lower limb; J90 Pleural effusion, not elsewhere classified; D68.9 Coagulation defect, unspecified; I42.9 Cardiomyopathy, unspecified; Z68.42 Body mass index [BMI] 45.0-49.9, adult; I11.0 Hypertensive heart disease with heart failure; E11.9 Type 2 diabetes mellitus without complications; E78.5 Hyperlipidemia, unspecified; I48.91 Unspecified atrial fibrillation; E66.01 Morbid (severe) obesity due to excess calories; D64.9 Anemia, unspecified; E78.00 Pure hypercholesterolemia, unspecified; H91.90 Unspecified hearing loss, unspecified ear; G56.00 Carpal tunnel syndrome, unspecified upper limb; D69.6 Thrombocytopenia, unspecified; L40.9 Psoriasis, unspecified; I25.10 Atherosclerotic heart disease of native coronary artery without angina pectoris; I50.9 Heart failure, unspecified; Z82.0 Family history of epilepsy and other diseases of the nervous system; Z82.49 Family history of ischemic heart disease and other diseases of the circulatory system; Z82.5 Family history of asthma and other chronic lower respiratory diseases; Z95.0 Presence of cardiac pacemaker; Z88.0 Allergy status to penicillin; Z88.8 Allergy status to other drugs, medicaments and biological substances
CPT/HCPCS: 36415; 51702; 71045; 73700; 80053; 80061; 81001; 82962; 83036; 83605; 83880; 84484; 85025; 85610; 85730; 87040; 87070; 87077; 87081; 87186; 87205; 93005; 93306; 93970; 94640; 94761; 96361; 96365; G0378; J1815; J1956; J3490

== ENCOUNTER 2018-12-03 23:02 | Inpatient (IN) | payer OTHER, MEDICAID | END 2018-12-20 17:00 | disposition home or self-care (01) | LOC: TELE-WESTW 12-05 20:08 → TELE 23:03 → DOU IN ICU 12-04 15:20 → ER 23:02 | PROC: B2161ZZ Fluoroscopy of Right and Left Heart using Low Osmolar Contrast (ICD-10-PCS; principal; ~2018-12-03) | PROC: 4A023N8 Measurement of Cardiac Sampling and Pressure, Bilateral, Percutaneous Approach (ICD-10-PCS; ~2018-12-03) | PROC: B2111ZZ Fluoroscopy of Multiple Coronary Arteries using Low Osmolar Contrast (ICD-10-PCS; ~2018-12-03) | DX: A41.9 Sepsis, unspecified organism (principal); I50.33 Acute on chronic diastolic (congestive) heart failure; I21.A1 Myocardial infarction type 2; N17.0 Acute kidney failure with tubular necrosis; I13.0 Hypertensive heart and chronic kidney disease with heart failure and stage 1 through stage 4 chronic kidney disease, or unspecified chronic kidney disease; D68.9 Coagulation defect, unspecified; L03.116 Cellulitis of left lower limb; L03.115 Cellulitis of right lower limb; I27.20 Pulmonary hypertension, unspecified; E11.22 Type 2 diabetes mellitus with diabetic chronic kidney disease; E11.21 Type 2 diabetes mellitus with diabetic nephropathy; I50.82 Biventricular heart failure; N18.3 Chronic kidney disease, stage 3 (moderate); R00.1 Bradycardia, unspecified; I25.10 Atherosclerotic heart disease of native coronary artery without angina pectoris; R31.9 Hematuria, unspecified; I07.1 Rheumatic tricuspid insufficiency; E66.01 Morbid (severe) obesity due to excess calories; I25.2 Old myocardial infarction; D72.823 Leukemoid reaction ==

== ENCOUNTER 2018-12-21 04:44 | Inpatient (IN) | payer OTHER, MEDICAID ==
[~2018-12-21] VITALS: Ht 152.4 cm; Wt 113.5 kg
[~2018-12-21 04:44] MED LIST changes: -APIX5TAB OR; +ASP81EC PO; +ATOR20TA50 PO; +FURO1TAB31 PO; -FURO40TA PO; -IBUP800T24 PO; +LORA10CA12 PO; -LOSA25TA40 PO; +POTA-220 PO; -POTA20TA53 PO; +SACU1TAB PO; +SILD20TA PO
[2018-12-21 05:53] LABS: Basophils # (auto) 0 uL; Basophils % (auto) 0.9 % (0.0-2.0); Eosinophils # (auto) 0.1 uL; Eosinophils % (auto) 2.7 % (0.0-7.0); Hematocrit 28.3 % (36.0-46.0); Hemoglobin 9.6 g/dL (12.2-16.2); Lymphocytes # (auto) 0.7 uL; Lymphocytes % (auto) 22.6 % (10.0-50.0); Mean Corpuscular Hemoglobin 29.2 pg (28.0-32.0); Mean Corpuscular Hgb Conc. 33.7 g/dL (32.0-36.0); Mean Corpuscular Volume 86.7 fL (80.0-100.0); Monocytes # (auto) 0.4 uL; Monocytes % (auto) 13.2 % (0.0-12.0); Neutrophils # (auto) 1.8 uL; Neutrophils % (auto) 60.6 % (37.0-80.0); Nucleated Red Blood Cells % 0.1 %; Platelet Count (auto) 174 10^3/uL (140-450); Red Blood Cells 3.27 10^6/uL (4.0-5.20)
[2018-12-21 06:03] LABS: Albumin 2.4 g/dL (3.4-5.0); BUN/Creatinine Ratio 34.5; Calcium 8.2 mg/dL (8.5-10.1); Potassium 4.1 mmol/L (3.5-5.1)
[2018-12-21 06:06] LABS: Bilirubin, Total 0.5 mg/dL (0.2-1.0); Total Protein 6.6 g/dL (6.4-8.2)
[2018-12-21 06:40] LABS: Urine Bacteria NONE SEEN /hpf (None Seen); Urine Blood 1+ /uL (Negative); Urine Specific Gravity 1.019 (1.001-1.035); Urine WBC 11 /hpf (0 - 5)
[2018-12-21] MEDS ORDERED: SODIUM CHLORIDE 0.9% 1,000 ML IV ONE (06:56)
[2018-12-21] MEDS ORDERED: cefTRIAXone 1GM/50ML D5W 50 ML IV ONE (07:00)
[2018-12-21] MEDS ORDERED: ASPirin-EC 81 mg tab PO SCH (10:00)
[2018-12-21] MEDS ORDERED: NITROGLYCERIN 0.4 MG SL TAB SL PRN (10:00)
[2018-12-21] MEDS: POTASSIUM CHL 20 Meq TABLET PO SCH ×2 (10:00→21:31)
[2018-12-21] MEDS: FUROSEMIDE 20 MG/2 ML VIAL IV SCH ×2 (10:00→21:31)
[2018-12-21] MEDS: MAGNESIUM SULFATE 1GM/100ML 100 ML IV SCH ×2 (10:00→11:54)
[2018-12-21] MEDS ORDERED: MORPHINE SULF INJ 2 MG/ML SYRINGE 1ML IV PRN ×2 (10:00→10:15)
[2018-12-21] MEDS ORDERED: ONDANSETRON HCL 4 MG/2 ML VIAL IV PRN (10:15)
[2018-12-21] MEDS ORDERED: HYDROcodone-ACET 5/325MG TAB PO PRN (10:15)
[2018-12-21] MEDS ORDERED: IPRATROPIUM BROM 0.5 MG/2.5ML INH SOL NEB PRN (10:15)
[2018-12-21] MEDS ORDERED: ACETAMINOPHEN 500 MG TAB PO PRN (10:15)
[2018-12-21] MEDS ORDERED: ALBUTEROL SULF 2.5 MG/0.5ML(0.5%) NEB SOLN NEB PRN (10:15)
[2018-12-21] MEDS ORDERED: DOCUSATE SOD 100 MG CAP PO PRN (10:15)
[2018-12-21 11:40] VITALS: BP 112/39
[2018-12-21 12:00] VITALS: BP 112/39
--- NOTE | 2018-12-21 13:22 | NUR ---
Telemetry admit from ER GURVINDER ALICIA admitted to Telemetry unit after SBAR received. Patient oriented to JENNY ROCHE, primary RN, unit, room, bed, and unit policies regarding patient care and visiting hours. Patient now on continuous telemetry monitoring, tele box # 34 and telemetry reading on arrival to unit is . Patient placed on bedside oxygen, weighed by bed scale and encouraged to call if they need something. All questions and concerns addressed, patient verbalized understanding.
[2018-12-21] MEDS: SILDENAFIL CITRATE 20 MG TAB PO SCH ×2 (14:17→20:20)
[2018-12-21 17:00] VITALS: BP 109/47
--- NOTE | 2018-12-21 19:25 | NUR ---
Opening Shift Note Assumed care of patient, awake and alert. No S/S of distress/SOB or pain. Patient repositioned for comfort. Instructed on POC and to call for assist PRN, will continue to monitor for changes Q1hr and PRN.
[2018-12-21 20:00] VITALS: BP 104/46
[2018-12-21] MEDS: ATORVASTATIN 20 MG TAB PO SCH (21:31)
[2018-12-21 21:38] VITALS: BP 104/46
--- NOTE | 2018-12-22 02:00 | NUR ---
PT SEEN SLEEPING IN BED ON 2L NC WITH SPO2 94%, BS CLEAR AND DIMINISHED. NO RESP DISTRESS NOTED. PRN NEB TX NOT GIVEN AT THIS TIME.
--- NOTE | 2018-12-22 04:58 | NUR ---
ROUNDS PATIENT RESTING IN BED, WITH EVEN AND UNLABORED RESPIRATIONS. NO S/S OR PAIN/DISTRESS, REPOSITIONED FOR COMFORT. CALL LIGHT WITHIN REACH.
[2018-12-22 05:27] VITALS: BP 103/42
[2018-12-22 05:59] LABS: Basophils # (auto) 0 uL; Basophils % (auto) 0.9 % (0.0-2.0); Eosinophils # (auto) 0.2 uL; Hematocrit 27.3 % (36.0-46.0); Hemoglobin 9.2 g/dL (12.2-16.2); Lymphocytes # (auto) 0.6 uL; Lymphocytes % (auto) 25.7 % (10.0-50.0); Mean Corpuscular Hemoglobin 29.5 pg (28.0-32.0); Mean Corpuscular Hgb Conc. 33.8 g/dL (32.0-36.0); Mean Corpuscular Volume 87.2 fL (80.0-100.0); Monocytes # (auto) 0.2 uL; Monocytes % (auto) 8.7 % (0.0-12.0); Neutrophils # (auto) 1.3 uL; Neutrophils % (auto) 56.7 % (37.0-80.0); Platelet Count (auto) 149 10^3/uL (140-450); Red Blood Cells 3.13 10^6/uL (4.0-5.20); Red Cell Distribution Width 15.8 % (11.8-14.3); White Blood Cell 2.3 10^3/uL (4.4-10.8)
[2018-12-22 06:10] LABS: BUN/Creatinine Ratio 32.8; Magnesium 2.4 mg/dL (1.6-2.6); Potassium 4.4 mmol/L (3.5-5.1)
--- NOTE | 2018-12-22 07:32 | NUR ---
ENDORSED CARE TO DAY SHIFT RNKATHERINE
[2018-12-22] MEDS: SILDENAFIL CITRATE 20 MG TAB PO SCH ×3 (08:19→20:04)
--- NOTE | 2018-12-22 08:51 | NUR ---
Respiratory note: ASSESSED PT FOR PRN TX PT WAS AWAKE AND ALERT NO RESP DISTRESS NOTED. HR 46, RR 16, SPO2 97% ON 2L N/C. BS ARE DIMINISHED. PT KNOWS TO HAVE RT PAGED IF TX IS NEEDED.
[2018-12-22 09:00] VITALS: BP 99/42
[2018-12-22] MEDS ORDERED: cefTRIAXone 1GM/50ML D5W 50 ML IV SCH (09:00)
[2018-12-22] MEDS: POTASSIUM CHL 20 Meq TABLET PO SCH ×2 (09:29→21:43)
[2018-12-22] MEDS: FUROSEMIDE 20 MG/2 ML VIAL IV SCH ×2 (09:30→21:42)
[2018-12-22] MEDS: ASPirin-EC 81 mg tab PO SCH (09:30)
[2018-12-22] MEDS: FAMOTIDINE 20 MG TAB PO SCH (09:30)
[2018-12-22] MEDS ORDERED: ENOXAPARIN SOD 40 MG/0.4 ML SYRINGE SC SCH (10:00)
[2018-12-22] MEDS: APIXABAN 5 MG TAB PO SCH ×2 (13:48→21:43)
[2018-12-22] MEDS ORDERED: IOHEXOL 350 MG/ML 100ML IJ ONE (13:48)
[2018-12-22 15:38] VITALS: BP 99/64
[2018-12-22 17:00] VITALS: BP 108/57
--- NOTE | 2018-12-22 19:25 | NUR ---
Opening Shift Note Assumed care of patient, awake and alert. No S/S of distress/SOB or pain. Instructed on POC and to call for assist PRN, will continue to monitor for changes Q1hr and PRN. Call light within reach.
--- NOTE | 2018-12-22 21:30 | NUR ---
PATIENT MOVED UP IN BED AND REPOSITIONED FOR COMFORT. LOTION APPLIED TO BILATERAL LEGS. CALL LIGHT WITHIN REACH.
[2018-12-22] MEDS: ATORVASTATIN 20 MG TAB PO SCH (21:43)
[2018-12-22 22:00] VITALS: BP 113/50
[2018-12-23 04:56] VITALS: BP 111/56
--- NOTE | 2018-12-23 06:30 | NUR ---
ROUNDS PATIENT PUT ON BEDPAN.
--- NOTE | 2018-12-23 06:40 | NUR ---
PATIENT HAD A BOWEL MOVEMENT. REPOSITIONED IN BED FOR COMFORT. DENIES ANY SOB/ PAIN/ DISCOMFORT AT THIS TIME. CALL LIGHT WITHIN REACH.
[2018-12-23] MEDS: SILDENAFIL CITRATE 20 MG TAB PO SCH ×3 (07:52→20:00)
--- NOTE | 2018-12-23 08:16 | NUR ---
Opening Shift Note Assumed care of patient, awake and alert. No S/S of distress/SOB or pain. Instructed on POC and to call for assist PRN, will continue to monitor for changes Q1hr and PRN.
[2018-12-23 09:00] VITALS: BP 119/56
[2018-12-23] MEDS: cefTRIAXone 1GM/50ML D5W 50 ML IV SCH (09:28)
[2018-12-23] MEDS: APIXABAN 5 MG TAB PO SCH (09:30)
[2018-12-23] MEDS: FAMOTIDINE 20 MG TAB PO SCH (09:30)
[2018-12-23] MEDS: POTASSIUM CHL 20 Meq TABLET PO SCH (09:30)
[2018-12-23] MEDS: ASPirin-EC 81 mg tab PO SCH (09:30)
[2018-12-23] MEDS: FUROSEMIDE 20 MG/2 ML VIAL IV SCH ×2 (09:31→22:00)
[2018-12-23] MEDS ORDERED: TAMSULOSIN HYDROCHLORIDE 0.4 MG CAP PO ONE (10:30)
--- NOTE | 2018-12-23 11:56 | NUR ---
Dr. Forte at bedside explained to the patient that she needs to go home with cool catheter and follow up with him in week for cystoscopy , patient verbalized understanding.
--- NOTE | 2018-12-23 12:00 | NUR ---
Patient requested Dr. Mcleod , Cardiology consult placed to Dr. Mcleod.
--- NOTE | 2018-12-23 12:13 | NUR ---
Dr. Loyola at bedside discussed with patient, received new orders , noted and carried it out.
[2018-12-23] MEDS ORDERED: ARTIFICIAL TEARS 15ml EACHEYE PRN (12:15)
[2018-12-23 13:10] VITALS: BP 111/56
--- NOTE | 2018-12-23 14:40 | NUR ---
Dr. Chapin at bedside discussed with patient, no need for intervention at this time.
[2018-12-23 16:40] VITALS: BP 127/56
[2018-12-23] MEDS: TAMSULOSIN HYDROCHLORIDE 0.4 MG CAP PO SCH (17:38)
--- NOTE | 2018-12-23 18:11 | NUR ---
Dr. Mcleod at bedside discussed with patient.
--- NOTE | 2018-12-23 18:12 | NUR ---
Per Dr. Mcleod hold blood thinner until restarted by .
--- NOTE | 2018-12-23 19:23 | NUR ---
Opening Shift Note Assumed care of patient, awake and alert. No S/S of distress/SOB or pain. Repositioned for comfort. Instructed on POC and to call for assist PRN, will continue to monitor for changes Q1hr and PRN.
[2018-12-23 21:49] VITALS: BP 104/55
[2018-12-23] MEDS ORDERED: APIXABAN 5 MG TAB PO SCH (22:00)
[2018-12-23] MEDS: ATORVASTATIN 20 MG TAB PO SCH (22:13)
--- NOTE | 2018-12-23 22:23 | NUR ---
Z GUARD APPLIED TO SACRAL AREA, SHEETS STRAIGHTEN AND PATIENT REPOSITIONED FOR COMFORT.
--- NOTE | 2018-12-24 | NUR ---
PAGED HOSPITALIST PATIENT C/O CONSTANT COUGH, REQUEST COUGH MEDICINE
--- NOTE | 2018-12-24 00:30 | NUR ---
HOSPITALIST RETURNED CALL. NEW ORDERS ENTERED BY RENITA. ALE DAVIS
[2018-12-24] MEDS ORDERED: guaiFENesin-CODEINE LIQUID 5 ML UD PO PRN (00:45)
[2018-12-24 05:34] VITALS: BP 107/44
[2018-12-24 06:28] LABS: Basophils # (auto) 0 uL; Eosinophils # (auto) 0.2 uL; Hemoglobin 8.4 g/dL (12.2-16.2); Lymphocytes # (auto) 0.6 uL; Monocytes # (auto) 0.2 uL; Neutrophils # (auto) 1.5 uL; White Blood Cell 2.5 10^3/uL (4.4-10.8)
[2018-12-24 06:32] LABS: Basophils % (auto) 0.8 % (0.0-2.0); Hematocrit 25.2 % (36.0-46.0); Lymphocytes % (auto) 22.9 % (10.0-50.0); Mean Corpuscular Hemoglobin 29.2 pg (28.0-32.0); Mean Corpuscular Hgb Conc. 33.4 g/dL (32.0-36.0); Mean Corpuscular Volume 87.4 fL (80.0-100.0); Monocytes % (auto) 9.6 % (0.0-12.0); Neutrophils % (auto) 58.7 % (37.0-80.0); Nucleated Red Blood Cells % 0.2 %; Platelet Count (auto) 171 10^3/uL (140-450); Red Blood Cells 2.89 10^6/uL (4.0-5.20); Red Cell Distribution Width 15.8 % (11.8-14.3)
[2018-12-24 07:11] LABS: Potassium 4.1 mmol/L (3.5-5.1)
[2018-12-24 07:19] LABS: BUN/Creatinine Ratio 32.3; Calcium 8.2 mg/dL (8.5-10.1); Magnesium 2.5 mg/dL (1.6-2.6)
[2018-12-24] MEDS: SILDENAFIL CITRATE 20 MG TAB PO SCH ×3 (08:12→22:22)
[2018-12-24 09:20] VITALS: BP 112/50
[2018-12-24] MEDS: cefTRIAXone 1GM/50ML D5W 50 ML IV SCH (09:28)
[2018-12-24] MEDS: FAMOTIDINE 20 MG TAB PO SCH (09:28)
[2018-12-24] MEDS: POTASSIUM EFFERVESENT TAB 25 MEQ PO SCH (09:28)
[2018-12-24] MEDS: FUROSEMIDE 20 MG/2 ML VIAL IV SCH ×2 (09:29→22:22)
[2018-12-24] MEDS ORDERED: ASPirin-EC 81 mg tab PO SCH (10:00)
--- NOTE | 2018-12-24 10:15 | NUR ---
Dr. Loyola at bedside discussed with patient regarding she is going to get a stress test, patient verbalized understanding.
--- NOTE | 2018-12-24 10:20 | NUR ---
Per Dr. Loyola patient can restart blood thinner, will call pharmacy.
--- NOTE | 2018-12-24 10:44 | NUR ---
Spoke to Sadi regarding patient scheduled for a stress test, he said will call back, if patient can get a test done today. Patient NPO now.
[2018-12-24] MEDS ORDERED: APIXABAN 5 MG TAB PO ONE (10:45)
[2018-12-24] MEDS ORDERED: ASPirin-EC 81 mg tab PO ONE (10:45)
[2018-12-24 13:08] VITALS: BP 97/53
[2018-12-24] MEDS ORDERED: ADENOSINE 95 MG in GIVE UN-DILUTED 0 ML IV STA (13:38)
--- NOTE | 2018-12-24 14:47 | NUR ---
Nutrition Assessment Notes please see attached link for complete assessment. Est. Needs ABW [id number] kcal (17-20 kcal/kgBW), 79-86 gms pro (1.0-1.1 gms/kgBW). Will continue to monitor pertinent labs and reassess nutrient need prn Addendum: 12/24/18 at [address] Amended: Links added.
[2018-12-24 15:10] VITALS: BP 111/43
[2018-12-24 17:00] VITALS: BP 113/58
[2018-12-24] MEDS: TAMSULOSIN HYDROCHLORIDE 0.4 MG CAP PO SCH (17:30)
--- NOTE | 2018-12-24 19:47 | NUR ---
received pt from day rn poc reviewed
[2018-12-24 21:00] VITALS: BP 105/51
[2018-12-24] MEDS: ATORVASTATIN 20 MG TAB PO SCH (22:22)
[2018-12-24] MEDS: APIXABAN 5 MG TAB PO SCH (22:23)
[2018-12-25 05:40] VITALS: BP 120/53
[2018-12-25 06:29] LABS: Ferritin 131.4 ng/mL (10-322); Folate (Folic Acid) 11.22 ng/mL (5.38-24)
--- NOTE | 2018-12-25 06:45 | NUR ---
awoke am care given and linen change no c/o pain or discomfort will report off to am nurse
[2018-12-25 08:15] VITALS: BP 115/57
[2018-12-25 08:24] VITALS: BP 115/57
[2018-12-25] MEDS: SILDENAFIL CITRATE 20 MG TAB PO SCH ×2 (08:27→14:05)
[2018-12-25] MEDS: cefTRIAXone 1GM/50ML D5W 50 ML IV SCH (08:40)
[2018-12-25] MEDS ORDERED: ASPirin-EC 81 mg tab PO SCH (10:00)
[2018-12-25] MEDS: POTASSIUM EFFERVESENT TAB 25 MEQ PO SCH (10:31)
[2018-12-25] MEDS: FUROSEMIDE 20 MG/2 ML VIAL IV SCH (10:31)
[2018-12-25] MEDS: FAMOTIDINE 20 MG TAB PO SCH (10:31)
[2018-12-25] MEDS: APIXABAN 5 MG TAB PO SCH (10:31)
--- NOTE | 2018-12-25 10:35 | NUR ---
DR. HERNÁNDEZ AT BEDSIDE SPEAKING WITH PATIENT. EXPLAINED CURRENT PLAN OF CARE TO PATIENT INCLUDING RESULTS OF STRESS TEST AND POTENTIAL FOR AICD PLACEMENT. TREATMENT PLAN ALSO DISCUSSED WITH PATIENT. MEDICATIONS DISCUSSED WITH PATIENT.
[2018-12-25 11:56] VITALS: BP 110/67
[2018-12-25] MEDS ORDERED: SODIUM FERR GLUC 62.5MG/5ML 125 MG in SODIUM CHL 0.9% 100 ML IV SCH (12:00)
--- NOTE | 2018-12-25 15:35 | NUR ---
FYI-patient was previously on service with [facility].
[2018-12-25 16:42] VITALS: BP 121/60
--- NOTE | 2018-12-25 16:43 | NUR ---
Per consult [facility] and to set up transportation. Per GUI diop pt was previously with [facility]( [phone] ). Contacted [facility] and spoke to Cindy to informed her pt is being d/c today and to give her authorization number provided from [employer] [id number]. Contacted [facility] transportation Ph: ( [phone]) Fax: ) faxed medical records. Per Emilie from [facility] transportation will be [facility] transport Ph: ) pt will be picker and sorter load and unload at 18:00. Informed OSORIO villatoro Addendum: 12/25/18 at 1655 by LALO BRADY Amended: Links added.
[2018-12-25 17:16] VITALS: BP 121/60
== END 2018-12-25 19:30 | disposition home health service (06) | DRG 291 ==
LOC: EDBD 04:44 → EDUNIT# 04:44 → ER 04:46 → TELE 04:47 → TELE-WESTW 11:30
PROVIDERS: ADMIT Nurse Practitioner Acute Care; ATTEND Internal Medicine
DX: I13.0 Hypertensive heart and chronic kidney disease with heart failure and stage 1 through stage 4 chronic kidney disease, or unspecified chronic kidney disease (principal); I50.43 Acute on chronic combined systolic (congestive) and diastolic (congestive) heart failure; N39.0 Urinary tract infection, site not specified; E44.0 Moderate protein-calorie malnutrition; Z68.42 Body mass index [BMI] 45.0-49.9, adult; N18.3 Chronic kidney disease, stage 3 (moderate); E11.22 Type 2 diabetes mellitus with diabetic chronic kidney disease; I27.29 Other secondary pulmonary hypertension; D63.8 Anemia in other chronic diseases classified elsewhere; R31.9 Hematuria, unspecified; E66.01 Morbid (severe) obesity due to excess calories; Z82.0 Family history of epilepsy and other diseases of the nervous system; I25.10 Atherosclerotic heart disease of native coronary artery without angina pectoris; I42.9 Cardiomyopathy, unspecified; I48.2 Chronic atrial fibrillation; I87.2 Venous insufficiency (chronic) (peripheral); Z82.49 Family history of ischemic heart disease and other diseases of the circulatory system; Z82.5 Family history of asthma and other chronic lower respiratory diseases; Z95.0 Presence of cardiac pacemaker; Z88.0 Allergy status to penicillin; Z88.8 Allergy status to other drugs, medicaments and biological substances; Z79.01 Long term (current) use of anticoagulants; D70.9 Neutropenia, unspecified; E11.51 Type 2 diabetes mellitus with diabetic peripheral angiopathy without gangrene; I27.81 Cor pulmonale (chronic)
CPT/HCPCS: 36415; 51702; 71275; 78452; 80048; 80053; 81001; 82607; 82728; 82746; 83010; 83540; 83550; 83615; 83735; 83880; 84484; 85025; 87081; 93005; 93017; 93926; 94640; 96365; G0378; J0153; J0696

== ENCOUNTER 2020-09-05 20:13 | Inpatient (IN) | payer OTHER, MEDICAID ==
[~2020-09-05] VITALS: Ht 162.6 cm; Wt 127.2 kg
[~2020-09-05 20:13] MED LIST changes: -ASP81EC PO; +ASPI-394 PO
[2020-09-05 22:49] LABS: Albumin 2.4 g/dL (3.4-5.0); Anion Gap 9 (5-15); Calcium 8.9 mg/dL (8.5-10.1); Carbon Dioxide 19 mmol/L (21-32); Chloride 102 mmol/L (98-107); Glucose 175 mg/dL (74-106); Lipase 376 U/L (73-393); Potassium 4.9 mmol/L (3.5-5.1); Sodium 130 mmol/L (136-145)
[2020-09-05 22:52] LABS: Lactic Acid w/Reflex 2.3 mmol/L (0.4-2.0)
[2020-09-05 22:55] LABS: Alanine Aminotransferase 17 U/L (13-56); Alkaline Phosphatase 101 U/L (45-117); Aspartate Aminotransferase 11 U/L (15-37); Bilirubin, Total 0.6 mg/dL (0.2-1.0); GFR African American 46 mL/min; GFR Non-African American 38 mL/min; Total Protein 6.6 g/dL (6.4-8.2)
[2020-09-05 22:57] LABS: Basophils # (auto) 0.1 10 ^3/uL (0-0.2); Basophils % (auto) 0.4 % (0.0-2.0); Eosinophils # (auto) 0.2 10 ^3/uL (0-0.8); Hematocrit 23.4 % (36.0-46.0); Hemoglobin 7.8 g/dL (12.2-16.2); Lymphocytes # (auto) 1.7 10 ^3/uL (0.4-5.4); Lymphocytes % (auto) 10.7 % (10.0-50.0); Mean Corpuscular Hemoglobin 30.9 pg (28.0-32.0); Mean Corpuscular Hgb Conc. 33.2 g/dL (32.0-36.0); Monocytes # (auto) 1.4 10 ^3/uL (0-1.3); Monocytes % (auto) 8.5 % (0.0-12.0); Neutrophils # (auto) 12.6 10 ^3/uL (1.6-8.6); Neutrophils % (auto) 79.4 % (37.0-80.0); Nucleated Red Blood Cells % 0.4 %; Platelet Count (auto) 403 10^3/uL (140-450); Red Blood Cells 2.51 10^6/uL (4.0-5.20); Red Cell Distribution Width 15.3 % (11.8-14.3); White Blood Cell 15.8 10^3/uL (4.4-10.8)
[2020-09-05 23:02] LABS: INR 1.18 (0.9-1.15)
[2020-09-05 23:18] LABS: BUN/Creatinine Ratio 58.2; Blood Urea Nitrogen 85 mg/dL (7-18)
[2020-09-06] MEDS ORDERED: cefTRIAXone 1GM/50ML D5W 50 ML IV ONE (00:30)
[2020-09-06] MEDS ORDERED: SODIUM CHLORIDE 0.9% 1,000 ML IV ONE (00:30)
[2020-09-06] MEDS ORDERED: VANCOMYCIN 1GM/250ML 250 ML IV ONE (00:30)
[2020-09-06] MEDS ORDERED: MORPHINE SULF INJ 2 MG/ML SYRINGE 1ML IV PRN (02:45)
[2020-09-06] MEDS ORDERED: DEXTROSE (50%) 50ML SYRG IV PRN (02:45)
[2020-09-06] MEDS ORDERED: NITROGLYCERIN 0.4 MG SL TAB SL PRN (02:45)
[2020-09-06] MEDS ORDERED: TEMAZEPAM 15 MG CAP PO PRN (02:45)
[2020-09-06] MEDS ORDERED: SODIUM CHLORIDE 0.9% 1,000 ML IV SCH (02:45)
[2020-09-06] MEDS ORDERED: ACETAMINOPHEN 325 MG TAB PO PRN (02:45)
[2020-09-06] MEDS: InsuLIN REG 1unit/0.01ml Soln (100units/ml) SC SCH ×3 (06:38→18:05)
[2020-09-06] MEDS: CLINDAMYCIN 600MG IV 50 ML IV SCH ×3 (06:38→21:05)
[2020-09-06] MEDS: ACCU-CHEK COMFORT CURVE STRIP VI SCH ×3 (06:39→18:03)
[2020-09-06] MEDS: levoFLOXacin 250MG 50 ML IV SCH (08:29)
[2020-09-06] MEDS: SILDENAFIL CITRATE 20 MG TAB PO SCH ×3 (08:29→20:00)
[2020-09-06] MEDS: SACUBITRIL-VALSARTAN 24mg/26mg TAB PO SCH ×2 (08:30→22:00)
[2020-09-06] MEDS ORDERED: APIXABAN 5 MG TAB PO SCH (10:00)
[2020-09-06] MEDS ORDERED: PANTOPRAZOLE 40 MG TAB PO SCH (10:00)
[2020-09-06] MEDS: HYDROcodone-ACET 5/325MG TAB PO PRN (10:36)
[2020-09-06 12:46] VITALS: BP 105/29
[2020-09-06 14:00] LABS: Basophils # (auto) 0 10 ^3/uL (0-0.2); Eosinophils # (auto) 0.1 10 ^3/uL (0-0.8); Lymphocytes # (auto) 0.9 10 ^3/uL (0.4-5.4)
[2020-09-06 14:02] LABS: Basophils % (auto) 0.1 % (0.0-2.0); Eosinophils % (auto) 0.9 % (0.0-7.0); Hematocrit 17.4 % (36.0-46.0); Lymphocytes % (auto) 6.3 % (10.0-50.0); Mean Corpuscular Hemoglobin 31.6 pg (28.0-32.0); Mean Corpuscular Hgb Conc. 34.3 g/dL (32.0-36.0); Mean Corpuscular Volume 92.4 fL (80.0-100.0); Monocytes # (auto) 1.2 10 ^3/uL (0-1.3); Monocytes % (auto) 7.8 % (0.0-12.0); Neutrophils # (auto) 12.7 10 ^3/uL (1.6-8.6); Neutrophils % (auto) 84.9 % (37.0-80.0); Nucleated Red Blood Cells % 0.1 %; Platelet Count (auto) 327 10^3/uL (140-450); Red Blood Cells 1.88 10^6/uL (4.0-5.20); Red Cell Distribution Width 15.5 % (11.8-14.3)
[2020-09-06 14:24] LABS: Magnesium 2.5 mg/dL (1.6-2.6)
[2020-09-06 14:27] LABS: Phosphorus 3.7 mg/dL (2.5-4.90)
[2020-09-06] MEDS ORDERED: APIX5TAB PO (14:30)
[2020-09-06 14:31] LABS: Lactic Acid w/Reflex 2.9 mmol/L (0.4-2.0)
[2020-09-06 14:32] LABS: Albumin 2.2 g/dL (3.4-5.0); Calcium 8.5 mg/dL (8.5-10.1); Potassium 4.7 mmol/L (3.5-5.1)
[2020-09-06 14:35] LABS: Bilirubin, Total 0.5 mg/dL (0.2-1.0); Total Protein 5.6 g/dL (6.4-8.2)
[2020-09-06] MEDS: SODIUM CHLORIDE 0.9% 1,000 ML IV SCH (16:14)
[2020-09-06 16:45] VITALS: BP 101/45
[2020-09-06] MEDS: PANTOPRAZOLE 40 MG TAB PO SCH (21:10)
[2020-09-06] MEDS: ATORVASTATIN 20 MG TAB PO SCH (21:10)
[2020-09-06 22:00] VITALS: BP 102/48
[2020-09-07] VITALS (16 sets, daily range): BP systolic 86–109; BP diastolic 23–67
[2020-09-07] MEDS: HYDROcodone-ACET 5/325MG TAB PO PRN (00:04)
[2020-09-07] MEDS: ACCU-CHEK COMFORT CURVE STRIP VI SCH ×4 (00:14→17:31)
[2020-09-07] MEDS: SODIUM CHLORIDE 0.9% 1,000 ML IV SCH (05:20)
[2020-09-07 05:52] LABS: Urine Bacteria FEW /hpf (None Seen); Urine Blood Negative /uL (Negative); Urine Mucus FEW (None Seen); Urine Specific Gravity 1.014 (1.001-1.035); Urine WBC 6 /hpf (0 - 5)
[2020-09-07] MEDS: InsuLIN REG 1unit/0.01ml Soln (100units/ml) SC SCH ×4 (06:00→17:31)
[2020-09-07] MEDS ORDERED: ALBUMIN 5% 250 ML IV ONE (06:00)
[2020-09-07] MEDS: CLINDAMYCIN 600MG IV 50 ML IV SCH ×3 (06:10→21:50)
[2020-09-07 07:19] LABS: Basophils # (auto) 0 10 ^3/uL (0-0.2); Eosinophils # (auto) 0.2 10 ^3/uL (0-0.8); Monocytes # (auto) 0.8 10 ^3/uL (0-1.3); Neutrophils # (auto) 7.6 10 ^3/uL (1.6-8.6)
[2020-09-07 07:20] LABS: Basophils % (auto) 0.3 % (0.0-2.0); Eosinophils % (auto) 2.4 % (0.0-7.0); Lymphocytes # (auto) 0.9 10 ^3/uL (0.4-5.4); Lymphocytes % (auto) 9.2 % (10.0-50.0); Mean Corpuscular Hgb Conc. 34.6 g/dL (32.0-36.0); Mean Corpuscular Volume 92.5 fL (80.0-100.0); Monocytes % (auto) 8.5 % (0.0-12.0); Neutrophils % (auto) 79.6 % (37.0-80.0); Nucleated Red Blood Cells % 0.1 %; Platelet Count (auto) 278 10^3/uL (140-450); Red Blood Cells 2.16 10^6/uL (4.0-5.20); Red Cell Distribution Width 15.4 % (11.8-14.3); White Blood Cell 9.6 10^3/uL (4.4-10.8)
[2020-09-07 07:39] LABS: Hemoglobin 6.9 g/dL (12.2-16.2)
[2020-09-07 07:40] LABS: Albumin 2.1 g/dL (3.4-5.0); Calcium 7.9 mg/dL (8.5-10.1); Magnesium 2.6 mg/dL (1.6-2.6); Potassium 4.1 mmol/L (3.5-5.1)
[2020-09-07 07:45] LABS: BUN/Creatinine Ratio 57.7; Bilirubin, Total 0.8 mg/dL (0.2-1.0); Phosphorus 3.8 mg/dL (2.5-4.90); Total Protein 5.6 g/dL (6.4-8.2)
[2020-09-07] MEDS: SILDENAFIL CITRATE 20 MG TAB PO SCH ×3 (08:00→20:00)
[2020-09-07] MEDS: levoFLOXacin 250MG 50 ML IV SCH (09:20)
[2020-09-07] MEDS: PANTOPRAZOLE 40 MG TAB PO SCH ×2 (09:21→21:49)
[2020-09-07] MEDS: SACUBITRIL-VALSARTAN 24mg/26mg TAB PO SCH ×2 (09:21→21:49)
[2020-09-07] MEDS ORDERED: ALBUMIN 25% 100 ML IV ONE (12:15)
[2020-09-07] MEDS: ERGOCALCIFEROL 50,000 UNIT(1.25MG) CAP PO SCH (13:00)
[2020-09-07] MEDS: ATORVASTATIN 20 MG TAB PO SCH (21:48)
[2020-09-08] MEDS: HYDROcodone-ACET 5/325MG TAB PO PRN (00:44)
[2020-09-08] MEDS: InsuLIN REG 1unit/0.01ml Soln (100units/ml) SC SCH ×5 (00:45→23:26)
[2020-09-08] MEDS: ACCU-CHEK COMFORT CURVE STRIP VI SCH ×5 (00:45→23:26)
[2020-09-08 05:00] VITALS: BP 100/43
[2020-09-08] MEDS: CLINDAMYCIN 600MG IV 50 ML IV SCH ×3 (06:07→19:57)
[2020-09-08 08:00] VITALS: BP 85/45
[2020-09-08] MEDS: SILDENAFIL CITRATE 20 MG TAB PO SCH ×3 (08:00→19:56)
[2020-09-08 08:22] LABS: Basophils # (auto) 0 10 ^3/uL (0-0.2); Eosinophils # (auto) 0.2 10 ^3/uL (0-0.8); Hematocrit 20.8 % (36.0-46.0); Hemoglobin 7.2 g/dL (12.2-16.2); Lymphocytes # (auto) 0.8 10 ^3/uL (0.4-5.4); Lymphocytes % (auto) 14.2 % (10.0-50.0); Monocytes # (auto) 0.7 10 ^3/uL (0-1.3)
[2020-09-08 08:24] LABS: Basophils % (auto) 0.3 % (0.0-2.0); Eosinophils % (auto) 3.4 % (0.0-7.0); Mean Corpuscular Hemoglobin 31.4 pg (28.0-32.0); Mean Corpuscular Hgb Conc. 34.4 g/dL (32.0-36.0); Mean Corpuscular Volume 91.4 fL (80.0-100.0); Monocytes % (auto) 11.8 % (0.0-12.0); Neutrophils % (auto) 70.3 % (37.0-80.0); Nucleated Red Blood Cells % 0.4 %; Platelet Count (auto) 251 10^3/uL (140-450); Red Blood Cells 2.28 10^6/uL (4.0-5.20); Red Cell Distribution Width 16.6 % (11.8-14.3); White Blood Cell 5.6 10^3/uL (4.4-10.8)
[2020-09-08 08:45] LABS: BUN/Creatinine Ratio 60.3; Calcium 7.2 mg/dL (8.5-10.1); Potassium 3.9 mmol/L (3.5-5.1)
[2020-09-08] MEDS: levoFLOXacin 250MG 50 ML IV SCH (09:24)
[2020-09-08] MEDS: PANTOPRAZOLE 40 MG TAB PO SCH ×2 (09:24→19:57)
[2020-09-08] MEDS: SACUBITRIL-VALSARTAN 24mg/26mg TAB PO SCH ×2 (09:24→19:57)
[2020-09-08] MEDS: SODIUM BICARBONATE 650 MG TAB PO SCH ×2 (09:25→19:57)
[2020-09-08 12:00] VITALS: BP 79/41
[2020-09-08 16:00] VITALS: BP 106/50
[2020-09-08] MEDS: ATORVASTATIN 20 MG TAB PO SCH (19:57)
[2020-09-08 22:00] VITALS: BP 96/42
[2020-09-09 05:00] VITALS: BP 108/45
[2020-09-09] MEDS: CLINDAMYCIN 600MG IV 50 ML IV SCH ×2 (05:14→13:46)
[2020-09-09] MEDS: ACCU-CHEK COMFORT CURVE STRIP VI SCH ×3 (05:14→18:05)
[2020-09-09] MEDS: InsuLIN REG 1unit/0.01ml Soln (100units/ml) SC SCH ×3 (05:15→18:00)
[2020-09-09 06:02] LABS: Basophils # (auto) 0 10 ^3/uL (0-0.2); Basophils % (auto) 0.3 % (0.0-2.0); Eosinophils # (auto) 0.2 10 ^3/uL (0-0.8); Eosinophils % (auto) 2.7 % (0.0-7.0); Hematocrit 21.7 % (36.0-46.0); Hemoglobin 7.4 g/dL (12.2-16.2); Lymphocytes # (auto) 0.8 10 ^3/uL (0.4-5.4); Lymphocytes % (auto) 12.8 % (10.0-50.0); Mean Corpuscular Hemoglobin 31.6 pg (28.0-32.0); Mean Corpuscular Volume 92.8 fL (80.0-100.0); Monocytes # (auto) 0.7 10 ^3/uL (0-1.3); Neutrophils # (auto) 4.8 10 ^3/uL (1.6-8.6); Neutrophils % (auto) 73.2 % (37.0-80.0); Nucleated Red Blood Cells % 0.1 %; Platelet Count (auto) 247 10^3/uL (140-450); Red Blood Cells 2.34 10^6/uL (4.0-5.20); Red Cell Distribution Width 17.2 % (11.8-14.3); White Blood Cell 6.6 10^3/uL (4.4-10.8)
[2020-09-09 06:20] LABS: Calcium 7.6 mg/dL (8.5-10.1); Potassium 4.1 mmol/L (3.5-5.1)
[2020-09-09 06:24] LABS: BUN/Creatinine Ratio 44.3
[2020-09-09] MEDS: SILDENAFIL CITRATE 20 MG TAB PO SCH ×3 (08:00→20:00)
[2020-09-09 08:52] VITALS: BP 102/47
[2020-09-09] MEDS: PANTOPRAZOLE 40 MG TAB PO SCH ×2 (09:31→22:09)
[2020-09-09] MEDS: levoFLOXacin 250MG 50 ML IV SCH (09:31)
[2020-09-09] MEDS: SODIUM BICARBONATE 650 MG TAB PO SCH ×2 (09:31→22:08)
[2020-09-09] MEDS: SACUBITRIL-VALSARTAN 24mg/26mg TAB PO SCH ×2 (09:31→22:00)
[2020-09-09] MEDS ORDERED: GOLYTELY 4L KIT PO ONE (09:45)
[2020-09-09 13:00] VITALS: BP 113/45
[2020-09-09] MEDS ORDERED: levoFLOXacin 500MG 100 ML IV ONE (16:00)
[2020-09-09 16:36] VITALS: BP 109/43
[2020-09-09 21:13] VITALS: BP 119/47
[2020-09-09] MEDS: ATORVASTATIN 20 MG TAB PO SCH (22:09)
[2020-09-09] MEDS: LINEZOLID 600MG TABLET PO SCH (22:10)
[2020-09-10] MEDS: ACCU-CHEK COMFORT CURVE STRIP VI SCH ×4 (00:19→17:03)
[2020-09-10 05:22] VITALS: BP 118/48
[2020-09-10] MEDS: InsuLIN REG 1unit/0.01ml Soln (100units/ml) SC SCH ×4 (05:58→17:03)
[2020-09-10 06:59] LABS: Hematocrit 21.1 % (36.0-46.0); Hemoglobin 7.4 g/dL (12.2-16.2)
[2020-09-10] MEDS: SILDENAFIL CITRATE 20 MG TAB PO SCH ×3 (08:00→20:00)
[2020-09-10 08:47] VITALS: BP 122/50
[2020-09-10] MEDS ORDERED: BENZOCAINE (DENTAL) 20 % SPRAY 60ML MT ONE (08:52)
[2020-09-10] MEDS: ONDANSETRON HCL 4 MG/2 ML VIAL IV PRN (08:55)
[2020-09-10 09:25] LABS: INR 1.08 (0.9-1.15)
[2020-09-10] MEDS ORDERED: ACCU-CHEK COMFORT CURVE STRIP VI ONE (09:30)
[2020-09-10] MEDS ORDERED: MORPHINE SULFATE 4 MG/ML SYR/VIAL IV PRN (09:30)
[2020-09-10] MEDS ORDERED: ONDANSETRON HCL 4 MG/2 ML VIAL IV PRN (09:30)
[2020-09-10] MEDS ORDERED: HYDROmorphone HCL 2 MG/ML VL IV PRN (09:30)
[2020-09-10] MEDS: levoFLOXacin 750MG 150 ML IV SCH (10:00)
[2020-09-10] MEDS: LINEZOLID 600MG TABLET PO SCH ×2 (10:00→22:02)
[2020-09-10] MEDS: SACUBITRIL-VALSARTAN 24mg/26mg TAB PO SCH ×2 (10:00→22:02)
[2020-09-10] MEDS: PANTOPRAZOLE 40 MG TAB PO SCH ×2 (10:00→22:01)
[2020-09-10] MEDS: SODIUM BICARBONATE 650 MG TAB PO SCH ×2 (10:00→22:00)
[2020-09-10] MEDS ORDERED: PROPOFOL 10 MG/ML 20 ML IV ONE (11:48)
[2020-09-10] MEDS ORDERED: MIDAZOLAM HCL 1MG/1ML-2 ML VIAL ONE (11:48)
[2020-09-10] MEDS ORDERED: fentaNYL CITRATE 100 MCG/2 ML VL ONE (11:48)
[2020-09-10] MEDS ORDERED: ONDANSETRON HCL 4 MG/2 ML VIAL ONE (11:48)
[2020-09-10] MEDS ORDERED: LIDOCAINE HCL 100 MG/5ML (2%) SYRG INJ IV ONE (11:48)
[2020-09-10] MEDS ORDERED: SODIUM CHLORIDE LOCK 10 ML ONE (11:48)
[2020-09-10 12:46] VITALS: BP 97/26
[2020-09-10 16:31] VITALS: BP 101/37
[2020-09-10 20:00] VITALS: BP 111/54
[2020-09-10 21:40] VITALS: BP 111/54
[2020-09-10] MEDS: ATORVASTATIN 20 MG TAB PO SCH (22:00)
[2020-09-11] MEDS: ACCU-CHEK COMFORT CURVE STRIP VI SCH ×5 (00:13→23:45)
[2020-09-11] MEDS: HYDROcodone-ACET 5/325MG TAB PO PRN (00:14)
[2020-09-11 05:30] VITALS: BP 112/55
[2020-09-11] MEDS: InsuLIN REG 1unit/0.01ml Soln (100units/ml) SC SCH ×5 (05:58→23:45)
[2020-09-11 08:04] LABS: Basophils # (auto) 0 10 ^3/uL (0-0.2); Eosinophils # (auto) 0.2 10 ^3/uL (0-0.8); Hemoglobin 7.4 g/dL (12.2-16.2)
[2020-09-11 08:07] LABS: Basophils % (auto) 0.4 % (0.0-2.0); Eosinophils % (auto) 3.8 % (0.0-7.0); Hematocrit 21.4 % (36.0-46.0); Lymphocytes # (auto) 0.9 10 ^3/uL (0.4-5.4); Lymphocytes % (auto) 13.3 % (10.0-50.0); Mean Corpuscular Hemoglobin 30.9 pg (28.0-32.0); Mean Corpuscular Hgb Conc. 34.4 g/dL (32.0-36.0); Mean Corpuscular Volume 89.9 fL (80.0-100.0); Monocytes # (auto) 0.5 10 ^3/uL (0-1.3); Monocytes % (auto) 8.1 % (0.0-12.0); Neutrophils # (auto) 4.8 10 ^3/uL (1.6-8.6); Neutrophils % (auto) 74.4 % (37.0-80.0); Platelet Count (auto) 228 10^3/uL (140-450); Red Blood Cells 2.38 10^6/uL (4.0-5.20); Red Cell Distribution Width 17.9 % (11.8-14.3); White Blood Cell 6.4 10^3/uL (4.4-10.8)
[2020-09-11 08:31] LABS: BUN/Creatinine Ratio 31.6; Calcium 7.5 mg/dL (8.5-10.1); Magnesium 2.4 mg/dL (1.6-2.6); Phosphorus 2.7 mg/dL (2.5-4.90); Potassium 3.2 mmol/L (3.5-5.1)
[2020-09-11] MEDS: SILDENAFIL CITRATE 20 MG TAB PO SCH ×3 (08:41→20:01)
[2020-09-11] MEDS: SODIUM BICARBONATE 650 MG TAB PO SCH ×2 (09:00→22:18)
[2020-09-11] MEDS: levoFLOXacin 750MG 150 ML IV SCH (09:00)
[2020-09-11] MEDS: SACUBITRIL-VALSARTAN 24mg/26mg TAB PO SCH ×2 (09:00→22:18)
[2020-09-11] MEDS: PANTOPRAZOLE 40 MG TAB PO SCH ×2 (09:01→22:19)
[2020-09-11] MEDS: LINEZOLID 600MG TABLET PO SCH ×2 (09:01→22:19)
[2020-09-11] MEDS ORDERED: POTASSIUM CHL 20 Meq TABLET PO ONE (12:00)
[2020-09-11 13:00] VITALS: BP 101/49
[2020-09-11 17:00] VITALS: BP 110/49
[2020-09-11 20:00] VITALS: BP 112/39
[2020-09-11 22:00] VITALS: BP 112/39
[2020-09-11] MEDS: ATORVASTATIN 20 MG TAB PO SCH (22:19)
[2020-09-12 04:54] VITALS: BP 92/39
[2020-09-12] MEDS: InsuLIN REG 1unit/0.01ml Soln (100units/ml) SC SCH ×4 (06:00→23:57)
[2020-09-12] MEDS: ACCU-CHEK COMFORT CURVE STRIP VI SCH ×4 (06:01→23:57)
[2020-09-12] MEDS: SILDENAFIL CITRATE 20 MG TAB PO SCH ×3 (08:14→19:58)
[2020-09-12 09:10] VITALS: BP 113/65
[2020-09-12] MEDS: SODIUM BICARBONATE 650 MG TAB PO SCH ×2 (09:50→22:11)
[2020-09-12] MEDS: levoFLOXacin 750MG 150 ML IV SCH (09:50)
[2020-09-12] MEDS: PANTOPRAZOLE 40 MG TAB PO SCH ×2 (09:51→22:11)
[2020-09-12] MEDS: LINEZOLID 600MG TABLET PO SCH ×2 (09:51→22:11)
[2020-09-12] MEDS: SACUBITRIL-VALSARTAN 24mg/26mg TAB PO SCH ×2 (11:51→22:11)
[2020-09-12] MEDS ORDERED: GENTAMICIN SULF 0.3% OPTH(EYE) OINT 3.5GM EACHEYE ONE (12:30)
[2020-09-12 13:00] VITALS: BP 110/56
[2020-09-12] MEDS: GENTAMICIN SULF 0.3% OPTH(EYE) OINT 3.5GM EACHEYE SCH ×2 (14:14→22:10)
[2020-09-12 17:00] VITALS: BP 119/61
[2020-09-12 20:00] VITALS: BP 115/53
[2020-09-12 22:00] VITALS: BP 115/53
[2020-09-12] MEDS: ATORVASTATIN 20 MG TAB PO SCH (22:11)
[2020-09-13 05:00] VITALS: BP 102/44
[2020-09-13] MEDS: ACCU-CHEK COMFORT CURVE STRIP VI SCH ×3 (05:34→17:58)
[2020-09-13] MEDS: InsuLIN REG 1unit/0.01ml Soln (100units/ml) SC SCH ×3 (05:35→17:58)
[2020-09-13 07:05] LABS: Basophils # (auto) 0 10 ^3/uL (0-0.2); Basophils % (auto) 0.4 % (0.0-2.0); Eosinophils # (auto) 0.1 10 ^3/uL (0-0.8); Eosinophils % (auto) 2.7 % (0.0-7.0); Hematocrit 20.9 % (36.0-46.0); Hemoglobin 7.2 g/dL (12.2-16.2); Lymphocytes # (auto) 0.7 10 ^3/uL (0.4-5.4); Lymphocytes % (auto) 12.9 % (10.0-50.0); Mean Corpuscular Hemoglobin 30.9 pg (28.0-32.0); Mean Corpuscular Hgb Conc. 34.3 g/dL (32.0-36.0); Mean Corpuscular Volume 90.1 fL (80.0-100.0); Monocytes # (auto) 0.4 10 ^3/uL (0-1.3); Monocytes % (auto) 7.5 % (0.0-12.0); Neutrophils # (auto) 4.1 10 ^3/uL (1.6-8.6); Neutrophils % (auto) 76.5 % (37.0-80.0); Nucleated Red Blood Cells % 0.1 %; Platelet Count (auto) 236 10^3/uL (140-450); Red Blood Cells 2.32 10^6/uL (4.0-5.20); Red Cell Distribution Width 17.4 % (11.8-14.3); White Blood Cell 5.3 10^3/uL (4.4-10.8)
[2020-09-13 07:22] LABS: Potassium 3.8 mmol/L (3.5-5.1)
[2020-09-13 07:27] LABS: BUN/Creatinine Ratio 28.6; Calcium 7.9 mg/dL (8.5-10.1)
[2020-09-13] MEDS: SILDENAFIL CITRATE 20 MG TAB PO SCH ×3 (08:39→22:42)
[2020-09-13 09:00] VITALS: BP 99/39
[2020-09-13] MEDS: GENTAMICIN SULF 0.3% OPTH(EYE) OINT 3.5GM EACHEYE SCH ×2 (10:08→22:00)
[2020-09-13] MEDS: levoFLOXacin 750MG 150 ML IV SCH (10:08)
[2020-09-13] MEDS: SODIUM BICARBONATE 650 MG TAB PO SCH ×2 (10:09→22:42)
[2020-09-13] MEDS: LINEZOLID 600MG TABLET PO SCH ×2 (10:09→22:00)
[2020-09-13] MEDS: SACUBITRIL-VALSARTAN 24mg/26mg TAB PO SCH ×2 (10:09→22:41)
[2020-09-13] MEDS: PANTOPRAZOLE 40 MG TAB PO SCH ×2 (10:09→22:42)
[2020-09-13 13:00] VITALS: BP 103/45
[2020-09-13 17:00] VITALS: BP 103/38
[2020-09-13] MEDS: ATORVASTATIN 20 MG TAB PO SCH (22:41)
[2020-09-13] MEDS: HYDROcodone-ACET 5/325MG TAB PO PRN (22:42)
[2020-09-14 05:00] VITALS: BP 109/45
[2020-09-14] MEDS: InsuLIN REG 1unit/0.01ml Soln (100units/ml) SC SCH ×4 (06:00→17:07)
[2020-09-14] MEDS: ACCU-CHEK COMFORT CURVE STRIP VI SCH ×4 (06:00→17:07)
[2020-09-14 06:02] LABS: Basophils # (auto) 0 10 ^3/uL (0-0.2); Eosinophils # (auto) 0.1 10 ^3/uL (0-0.8); Lymphocytes # (auto) 0.7 10 ^3/uL (0.4-5.4); Mean Corpuscular Hgb Conc. 33.4 g/dL (32.0-36.0); Monocytes # (auto) 0.4 10 ^3/uL (0-1.3); Neutrophils # (auto) 3.4 10 ^3/uL (1.6-8.6); White Blood Cell 4.6 10^3/uL (4.4-10.8)
[2020-09-14 06:06] LABS: Basophils % (auto) 0.5 % (0.0-2.0); Eosinophils % (auto) 1.8 % (0.0-7.0); Hematocrit 23.6 % (36.0-46.0); Hemoglobin 7.9 g/dL (12.2-16.2); Lymphocytes % (auto) 15.6 % (10.0-50.0); Mean Corpuscular Hemoglobin 30.3 pg (28.0-32.0); Mean Corpuscular Volume 90.6 fL (80.0-100.0); Monocytes % (auto) 8.5 % (0.0-12.0); Neutrophils % (auto) 73.6 % (37.0-80.0); Nucleated Red Blood Cells % 0.1 %; Platelet Count (auto) 224 10^3/uL (140-450); Red Cell Distribution Width 17.3 % (11.8-14.3)
[2020-09-14 06:27] LABS: Potassium 3.8 mmol/L (3.5-5.1)
[2020-09-14 06:37] LABS: BUN/Creatinine Ratio 26.9; Calcium 7.9 mg/dL (8.5-10.1)
[2020-09-14] MEDS: SILDENAFIL CITRATE 20 MG TAB PO SCH ×3 (08:12→20:35)
[2020-09-14] MEDS: HYDROcodone-ACET 5/325MG TAB PO PRN ×3 (08:13→17:03)
[2020-09-14 08:55] VITALS: BP 113/39
[2020-09-14] MEDS: levoFLOXacin 750MG 150 ML IV SCH (09:49)
[2020-09-14] MEDS: GENTAMICIN SULF 0.3% OPTH(EYE) OINT 3.5GM EACHEYE SCH ×2 (09:49→22:20)
[2020-09-14] MEDS: SACUBITRIL-VALSARTAN 24mg/26mg TAB PO SCH ×2 (09:56→21:59)
[2020-09-14] MEDS: LINEZOLID 600MG TABLET PO SCH ×2 (09:56→22:00)
[2020-09-14] MEDS: SODIUM BICARBONATE 650 MG TAB PO SCH ×2 (09:56→21:59)
[2020-09-14] MEDS: PANTOPRAZOLE 40 MG TAB PO SCH ×2 (09:58→22:00)
[2020-09-14] MEDS: ERGOCALCIFEROL 50,000 UNIT(1.25MG) CAP PO SCH (12:21)
[2020-09-14 12:36] VITALS: BP 107/42
[2020-09-14 17:17] VITALS: BP 106/50
[2020-09-14 21:41] VITALS: BP 97/67
[2020-09-14] MEDS: ATORVASTATIN 20 MG TAB PO SCH (21:59)
[2020-09-15] MEDS: ACCU-CHEK COMFORT CURVE STRIP VI SCH ×4 (00:41→16:41)
[2020-09-15 05:30] VITALS: BP 106/48
[2020-09-15] MEDS: InsuLIN REG 1unit/0.01ml Soln (100units/ml) SC SCH ×4 (05:57→16:41)
[2020-09-15 07:17] LABS: Basophils # (auto) 0 10 ^3/uL (0-0.2); Basophils % (auto) 0.7 % (0.0-2.0); Eosinophils # (auto) 0.1 10 ^3/uL (0-0.8); Eosinophils % (auto) 2.7 % (0.0-7.0); Hemoglobin 8.4 g/dL (12.2-16.2); Lymphocytes # (auto) 0.5 10 ^3/uL (0.4-5.4); Lymphocytes % (auto) 13.9 % (10.0-50.0); Mean Corpuscular Hemoglobin 31.2 pg (28.0-32.0); Mean Corpuscular Hgb Conc. 34.8 g/dL (32.0-36.0); Mean Corpuscular Volume 89.7 fL (80.0-100.0); Monocytes # (auto) 0.3 10 ^3/uL (0-1.3); Monocytes % (auto) 7.8 % (0.0-12.0); Neutrophils # (auto) 2.9 10 ^3/uL (1.6-8.6); Neutrophils % (auto) 74.9 % (37.0-80.0); Nucleated Red Blood Cells % 0.2 %; Platelet Count (auto) 209 10^3/uL (140-450); Red Blood Cells 2.68 10^6/uL (4.0-5.20); Red Cell Distribution Width 16.6 % (11.8-14.3); White Blood Cell 3.9 10^3/uL (4.4-10.8)
[2020-09-15 07:37] LABS: BUN/Creatinine Ratio 24.5; Calcium 8.2 mg/dL (8.5-10.1)
[2020-09-15] MEDS: SILDENAFIL CITRATE 20 MG TAB PO SCH ×3 (08:00→20:05)
[2020-09-15 09:00] VITALS: BP 95/32
[2020-09-15] MEDS: levoFLOXacin 750MG 150 ML IV SCH (09:47)
[2020-09-15] MEDS: GENTAMICIN SULF 0.3% OPTH(EYE) OINT 3.5GM EACHEYE SCH ×2 (09:48→22:28)
[2020-09-15] MEDS: ONDANSETRON HCL 4 MG/2 ML VIAL IV PRN ×2 (09:48→14:51)
[2020-09-15] MEDS: SACUBITRIL-VALSARTAN 24mg/26mg TAB PO SCH ×2 (10:34→22:00)
[2020-09-15] MEDS: PANTOPRAZOLE 40 MG TAB PO SCH ×2 (10:36→22:29)
[2020-09-15] MEDS: SODIUM BICARBONATE 650 MG TAB PO SCH ×2 (10:36→22:29)
[2020-09-15] MEDS: LINEZOLID 600MG TABLET PO SCH ×2 (10:36→22:29)
[2020-09-15 13:00] VITALS: BP 113/39
[2020-09-15 17:00] VITALS: BP 103/45
[2020-09-15] MEDS: HYDROcodone-ACET 5/325MG TAB PO PRN (17:45)
[2020-09-15 20:00] VITALS: BP 97/43
[2020-09-15 22:00] VITALS: BP 97/43
[2020-09-15] MEDS: ATORVASTATIN 20 MG TAB PO SCH (22:29)
[2020-09-16] VITALS (7 sets, daily range): BP systolic 110–121; BP diastolic 49–57
[2020-09-16] MEDS: ACCU-CHEK COMFORT CURVE STRIP VI SCH ×5 (00:25→23:56)
[2020-09-16] MEDS: InsuLIN REG 1unit/0.01ml Soln (100units/ml) SC SCH ×5 (05:44→23:56)
[2020-09-16 06:21] LABS: Hematocrit 24.2 % (36.0-46.0); Hemoglobin 8.3 g/dL (12.2-16.2)
[2020-09-16] MEDS: levoFLOXacin 750MG 150 ML IV SCH (09:32)
[2020-09-16] MEDS: SILDENAFIL CITRATE 20 MG TAB PO SCH ×3 (09:32→19:58)
[2020-09-16] MEDS: SACUBITRIL-VALSARTAN 24mg/26mg TAB PO SCH ×2 (09:33→22:04)
[2020-09-16] MEDS: LINEZOLID 600MG TABLET PO SCH ×2 (09:33→22:05)
[2020-09-16] MEDS: PANTOPRAZOLE 40 MG TAB PO SCH ×2 (09:33→22:05)
[2020-09-16] MEDS: SODIUM BICARBONATE 650 MG TAB PO SCH ×2 (09:33→22:04)
[2020-09-16] MEDS: GENTAMICIN SULF 0.3% OPTH(EYE) OINT 3.5GM EACHEYE SCH ×2 (12:26→22:04)
[2020-09-16] MEDS: ATORVASTATIN 20 MG TAB PO SCH (22:04)
[2020-09-16] MEDS: HYDROcodone-ACET 5/325MG TAB PO PRN (22:15)
[2020-09-17 05:00] VITALS: BP 97/45
[2020-09-17] MEDS: InsuLIN REG 1unit/0.01ml Soln (100units/ml) SC SCH ×3 (06:00→18:00)
[2020-09-17] MEDS: ACCU-CHEK COMFORT CURVE STRIP VI SCH ×3 (06:06→18:00)
[2020-09-17 08:50] VITALS: BP 108/70
[2020-09-17] MEDS: SILDENAFIL CITRATE 20 MG TAB PO SCH ×2 (10:20→18:30)
[2020-09-17] MEDS: GENTAMICIN SULF 0.3% OPTH(EYE) OINT 3.5GM EACHEYE SCH (10:20)
[2020-09-17] MEDS: levoFLOXacin 750MG 150 ML IV SCH (10:20)
[2020-09-17] MEDS: SACUBITRIL-VALSARTAN 24mg/26mg TAB PO SCH (10:21)
[2020-09-17] MEDS: LINEZOLID 600MG TABLET PO SCH (10:21)
[2020-09-17] MEDS: SODIUM BICARBONATE 650 MG TAB PO SCH (10:21)
[2020-09-17] MEDS: PANTOPRAZOLE 40 MG TAB PO SCH (10:21)
[2020-09-17 12:42] VITALS: BP 91/46
[2020-09-17] MEDS ORDERED: diphenhdrAMINE HCL 50 MG/1 ML VL IV PRN (12:45)
[2020-09-17 16:38] VITALS: BP 108/53
== END 2020-09-17 18:30 | disposition short-term general hospital (02) | DRG 871 ==
LOC: EDBD 20:13 → ER 20:13 → TELE 09-06 02:42 → TELE-CENTR 09-06 11:41
PROVIDERS: ADMIT Nurse Practitioner; ATTEND Internal Medicine
PROC: 30233N1 Transfusion of Nonautologous Red Blood Cells into Peripheral Vein, Percutaneous Approach (ICD-10-PCS; 2020-09-07)
PROC: 0DJ08ZZ Inspection of Upper Intestinal Tract, Via Natural or Artificial Opening Endoscopic (ICD-10-PCS; principal; 2020-09-10 09:28)
PROC: 0DJD8ZZ Inspection of Lower Intestinal Tract, Via Natural or Artificial Opening Endoscopic (ICD-10-PCS; 2020-09-10 09:28)
DX: A41.9 Sepsis, unspecified organism (principal); N17.0 Acute kidney failure with tubular necrosis; L03.116 Cellulitis of left lower limb; L03.115 Cellulitis of right lower limb; E87.2 Acidosis; K92.2 Gastrointestinal hemorrhage, unspecified; E87.1 Hypo-osmolality and hyponatremia; L97.929 Non-pressure chronic ulcer of unspecified part of left lower leg with unspecified severity; I13.0 Hypertensive heart and chronic kidney disease with heart failure and stage 1 through stage 4 chronic kidney disease, or unspecified chronic kidney disease; Z68.43 Body mass index [BMI] 50.0-59.9, adult; I50.42 Chronic combined systolic (congestive) and diastolic (congestive) heart failure; I48.20 Chronic atrial fibrillation, unspecified; D62 Acute posthemorrhagic anemia; E44.0 Moderate protein-calorie malnutrition; N18.32 Chronic kidney disease, stage 3b; E55.9 Vitamin D deficiency, unspecified; E66.01 Morbid (severe) obesity due to excess calories; I89.0 Lymphedema, not elsewhere classified; Z88.0 Allergy status to penicillin; Z20.822 Contact with and (suspected) exposure to COVID-19; E11.22 Type 2 diabetes mellitus with diabetic chronic kidney disease; H91.90 Unspecified hearing loss, unspecified ear; I27.20 Pulmonary hypertension, unspecified; I25.10 Atherosclerotic heart disease of native coronary artery without angina pectoris; K64.4 Residual hemorrhoidal skin tags; R65.20 Severe sepsis without septic shock; Z79.01 Long term (current) use of anticoagulants; Z82.0 Family history of epilepsy and other diseases of the nervous system; Z82.49 Family history of ischemic heart disease and other diseases of the circulatory system; Z82.5 Family history of asthma and other chronic lower respiratory diseases; Z87.891 Personal history of nicotine dependence; Z95.0 Presence of cardiac pacemaker
CPT/HCPCS: 36415; 43235; 45378; 51702; 71045; 73590; 73700; 80048; 80053; 81001; 82270; 82306; 82962; 83605; 83690; 83735; 83880; 84100; 84484; 85014; 85018; 85025; 85610; 86850; 86900; 86901; 86920; 86922; 87040; 87077; 87081; 87186; 87205; 87426; 87493; 93005; 93306; 96365; 96367; 96368; 97110; 97530; G0378; J0696; J1815; J1956; J2250; J2405; J2704; J3490; P9047

== ENCOUNTER 2023-01-25 15:37 | Inpatient (IN) | payer MEDICARE, MEDICAID ==
[~2023-01-25] VITALS: Ht 160 cm; Wt 108.9 kg
[~2023-01-25 15:37] MED LIST changes: +APIX5TAB PO
[2023-01-25 16:29] LABS: Basophils # (auto) 0 10 ^3/uL (0-0.2); Basophils % (auto) 0.3 % (0.0-2.0); Eosinophils # (auto) 0 10 ^3/uL (0-0.8); Eosinophils % (auto) 0.3 % (0.0-7.0); Hemoglobin 9.7 g/dL (12.2-16.2); Lymphocytes # (auto) 0.7 10 ^3/uL (0.4-5.4); Lymphocytes % (auto) 5.9 % (10.0-50.0); Mean Corpuscular Hemoglobin 28.1 pg (28.0-32.0); Mean Corpuscular Hgb Conc. 33.3 g/dL (32.0-36.0); Mean Corpuscular Volume 84.3 fL (80.0-100.0); Monocytes # (auto) 0.6 10 ^3/uL (0-1.3); Monocytes % (auto) 5.1 % (0.0-12.0); Neutrophils # (auto) 10.9 10 ^3/uL (1.6-8.6); Neutrophils % (auto) 88.4 % (37.0-80.0); Red Blood Cells 3.44 10^6/uL (4.0-5.20); Red Cell Distribution Width 17.6 % (11.8-14.3); White Blood Cell 12.3 10^3/uL (4.4-10.8)
[2023-01-25 16:43] LABS: INR 1.41 (0.9-1.15); Prothrombin Time 14.5 sec (9.3-11.8)
[2023-01-25] MEDS ORDERED: FUROSEMIDE 20 MG/2 ML VIAL IV ONE (16:45)
[2023-01-25 16:48] LABS: Alanine Aminotransferase 104 U/L (7-40); Albumin 3.4 g/dL (3.2-4.8); Alkaline Phosphatase 371 U/L (46-116); Anion Gap 9.3 (5-15); Aspartate Aminotransferase 104 U/L (13-40); BUN/Creatinine Ratio 15.9 (10.0-20.0); Blood Urea Nitrogen 29 mg/dL (9-23); Calcium 8.8 mg/dL (8.5-10.1); Carbon Dioxide 22.7 mmol/L (20-30); Chloride 103 mmol/L (98-107); Glucose 147 mg/dL (74-106); Lipase 55 U/L (12-53); Sodium 135 mmol/L (136-145)
[2023-01-25 16:49] LABS: Bilirubin, Total 6.5 mg/dL (0.2-1.0); Total Protein 6.8 g/dL (5.7-8.2)
[2023-01-25 17:16] VITALS: PULSE 65; RESP 13; O2SAT 95
[2023-01-25] MEDS ORDERED: ALBUMIN 25% 100 ML IV ONE (17:30)
[2023-01-25] MEDS ORDERED: ONDANSETRON HCL 4 MG/2 ML VIAL IV PRN (18:15)
[2023-01-25] MEDS ORDERED: MORPHINE SULFATE INJ 2 MG/ml SYRG IV PRN (18:15)
[2023-01-25] MEDS ORDERED: NITROGLYCERIN 0.4 MG SL TAB SL PRN (18:15)
[2023-01-25] MEDS ORDERED: PANTOPRAZOLE 40 MG/10 ML VIAL INJ IV ONE (18:15)
[2023-01-25] MEDS: MAGNESIUM SULFATE 1GM/100ML 100 ML IV SCH ×2 (18:45→21:08)
[2023-01-25] MEDS ORDERED: ALBUTEROL SULF 2.5 MG/0.5ML(0.5%) NEB SOLN NEB PRN (18:45)
[2023-01-25] MEDS ORDERED: DEXTROSE (50%) 50ML SYRG IV PRN (18:45)
[2023-01-25] MEDS ORDERED: CEFEPIME 1GM/ 50ML 50 ML IV ONE (19:15)
[2023-01-25] MEDS ORDERED: metroNIDAZOLE 500MG/100ML 100 ML IV ONE (19:15)
[2023-01-25 19:23] LABS: Triglycerides 58 mg/dL (< 150)
[2023-01-25 19:24] LABS: LDL Cholesterol 15 mg/dL (< 100)
[2023-01-25 19:25] LABS: Cholesterol 76 mg/dL (< 200); HDL Cholesterol 36 mg/dL (40-59)
[2023-01-25 20:10] VITALS: RESP 13; O2SAT 94
[2023-01-25] MEDS: InsuLIN REG 1unit/0.01ml Soln (100units/ml) SC SCH (22:46)
[2023-01-25] MEDS: ACCU-CHEK COMFORT CURVE STRIP VI SCH (22:47)
[2023-01-25 23:00] VITALS: BP 123/47; PULSE 66; RESP 22; TEMP 98.9; O2SAT 95
[2023-01-25] MEDS: metroNIDAZOLE 500MG/100ML 100 ML IV SCH (23:04)
[2023-01-25] MEDS: ATORVASTATIN 20 MG TAB PO SCH (23:04)
[2023-01-25] MEDS: SACUBITRIL-VALSARTAN 24mg/26mg TAB PO SCH (23:04)
[2023-01-25] MEDS: SILDENAFIL CITRATE 20 MG TAB PO SCH (23:04)
[2023-01-25] MEDS: APIXABAN 5 MG TAB PO SCH (23:04)
[2023-01-25] MEDS: CEFEPIME 1GM/ 50ML 50 ML IV SCH (23:51)
[2023-01-26] VITALS (9 sets, daily range): BP systolic 104–134; BP diastolic 33–48; PULSE 62–82; RESP 14–20; TEMP 97.5–99.2; O2SAT 95–100
[2023-01-26] MEDS ORDERED: LORA-483 PO (05:41)
[2023-01-26] MEDS ORDERED: PANT40T PO (05:41)
[2023-01-26] MEDS ORDERED: FUR20T PO (05:41)
[2023-01-26] MEDS ORDERED: APIX2.5T PO (05:41)
[2023-01-26] MEDS: metroNIDAZOLE 500MG/100ML 100 ML IV SCH ×3 (06:09→22:09)
[2023-01-26] MEDS: ACCU-CHEK COMFORT CURVE STRIP VI SCH ×4 (06:15→22:10)
[2023-01-26] MEDS: InsuLIN REG 1unit/0.01ml Soln (100units/ml) SC SCH ×4 (06:15→22:27)
[2023-01-26 06:48] LABS: Alanine Aminotransferase 74 U/L (7-40); Albumin 3.1 g/dL (3.2-4.8); Alkaline Phosphatase 292 U/L (46-116); Anion Gap 8.4 (5-15); Aspartate Aminotransferase 53 U/L (13-40); BUN/Creatinine Ratio 19.6 (10.0-20.0); Blood Urea Nitrogen 30 mg/dL (9-23); Calcium 8.6 mg/dL (8.7-10.4); Carbon Dioxide 21.6 mmol/L (20-30); Chloride 106 mmol/L (98-107); Glucose 108 mg/dL (74-106); Potassium 3.6 mmol/L (3.5-5.1); Sodium 136 mmol/L (136-145)
[2023-01-26 06:49] LABS: Bilirubin, Total 4.8 mg/dL (0.2-1.0)
[2023-01-26 07:11] LABS: Basophils # (auto) 0 10 ^3/uL (0-0.2); Basophils % (auto) 0.4 % (0.0-2.0); Eosinophils # (auto) 0.1 10 ^3/uL (0-0.8); Eosinophils % (auto) 2.1 % (0.0-7.0); Hemoglobin 8.3 g/dL (12.2-16.2); Lymphocytes # (auto) 0.7 10 ^3/uL (0.4-5.4); Neutrophils # (auto) 5.2 10 ^3/uL (1.6-8.6); Red Cell Distribution Width 17.3 % (11.8-14.3); White Blood Cell 6.5 10^3/uL (4.4-10.8)
[2023-01-26 07:14] LABS: Hematocrit 24.3 % (36.0-46.0); Lymphocytes % (auto) 10.6 % (10.0-50.0); Mean Corpuscular Hemoglobin 29.2 pg (28.0-32.0); Mean Corpuscular Hgb Conc. 34.1 g/dL (32.0-36.0); Mean Corpuscular Volume 85.6 fL (80.0-100.0); Monocytes # (auto) 0.4 10 ^3/uL (0-1.3); Monocytes % (auto) 6.7 % (0.0-12.0); Neutrophils % (auto) 80.2 % (37.0-80.0); Nucleated Red Blood Cells % 0.1 %; Red Blood Cells 2.83 10^6/uL (4.0-5.20)
[2023-01-26 07:27] LABS: Magnesium 1.6 mg/dL (1.6-2.6)
[2023-01-26] MEDS: SILDENAFIL CITRATE 20 MG TAB PO SCH ×3 (08:00→20:09)
[2023-01-26] MEDS: APIXABAN 5 MG TAB PO SCH ×2 (10:00→22:00)
[2023-01-26] MEDS ORDERED: ASPirin-EC 81 mg tab PO SCH (10:00)
[2023-01-26] MEDS: SACUBITRIL-VALSARTAN 24mg/26mg TAB PO SCH ×2 (10:00→22:00)
[2023-01-26] MEDS: CEFEPIME 1GM/ 50ML 50 ML IV SCH ×2 (13:30→22:11)
[2023-01-26] MEDS: FUROSEMIDE 20 MG/2 ML VIAL IV SCH (13:31)
[2023-01-26] MEDS: PANTOPRAZOLE 40 MG/10 ML VIAL INJ IV SCH (13:31)
[2023-01-26 14:07] LABS: Protein, Urine 57.2 mg/dL (0.0-11.9)
[2023-01-26 14:10] LABS: Creatinine, Urine 143.14 mg/dL (30.0-125.0)
[2023-01-26 14:11] LABS: Urine Bacteria MANY /hpf (None Seen); Urine Blood TRACE /uL (Negative); Urine Clarity HAZY (Clear); Urine Color Orange (Yellow); Urine Protein, UAD TRACE (Negative); Urine Specific Gravity 1.015 (1.001-1.035); Urine Urobilinogen Normal (Negative); Urine WBC 58 /hpf (0 - 5)
[2023-01-26] MEDS: ACETAMINOPHEN 325 MG TAB PO PRN (16:59)
[2023-01-26] MEDS: ATORVASTATIN 20 MG TAB PO SCH (22:08)
[2023-01-26] MEDS: SUCRALFATE 1 GM/10 ML ORAL SUSP PO SCH (22:09)
[2023-01-26] MEDS: NYSTATIN TOPICAL POWDER 15GM TOP SCH (22:10)
[2023-01-27] VITALS (8 sets, daily range): BP systolic 97–118; BP diastolic 24–61; PULSE 56–74; RESP 16–18; TEMP 97.9–98.6; O2SAT 95–100
[2023-01-27] MEDS: SUCRALFATE 1 GM/10 ML ORAL SUSP PO SCH ×4 (05:49→22:20)
[2023-01-27] MEDS: metroNIDAZOLE 500MG/100ML 100 ML IV SCH ×3 (05:49→22:19)
[2023-01-27] MEDS: ACCU-CHEK COMFORT CURVE STRIP VI SCH ×4 (05:49→22:21)
[2023-01-27] MEDS: InsuLIN REG 1unit/0.01ml Soln (100units/ml) SC SCH ×4 (05:51→22:00)
[2023-01-27 07:49] LABS: Anion Gap 10.6 (5-15); Carbon Dioxide 20.4 mmol/L (20-30); Chloride 105 mmol/L (98-107); Potassium 3.5 mmol/L (3.5-5.1); Sodium 136 mmol/L (136-145)
[2023-01-27 07:51] LABS: Calcium 9.1 mg/dL (8.5-10.1)
[2023-01-27 07:55] LABS: Blood Urea Nitrogen 22 mg/dL (9-23); Glucose 123 mg/dL (74-106)
[2023-01-27] MEDS: SILDENAFIL CITRATE 20 MG TAB PO SCH ×3 (09:14→20:00)
[2023-01-27] MEDS: FUROSEMIDE 20 MG/2 ML VIAL IV SCH (09:15)
[2023-01-27] MEDS: PANTOPRAZOLE 40 MG/10 ML VIAL INJ IV SCH (09:15)
[2023-01-27] MEDS: SACUBITRIL-VALSARTAN 24mg/26mg TAB PO SCH ×2 (09:15→22:20)
[2023-01-27] MEDS: APIXABAN 5 MG TAB PO SCH (09:15)
[2023-01-27] MEDS: CEFEPIME 1GM/ 50ML 50 ML IV SCH ×2 (09:15→22:20)
[2023-01-27] MEDS: NYSTATIN TOPICAL POWDER 15GM TOP SCH ×2 (09:16→22:21)
[2023-01-27] MEDS: ACETAMINOPHEN 325 MG TAB PO PRN (16:27)
[2023-01-27] MEDS: ATORVASTATIN 20 MG TAB PO SCH (22:20)
[2023-01-28] VITALS (9 sets, daily range): BP systolic 101–126; BP diastolic 42–63; PULSE 61–68; RESP 16–17; TEMP 97.7–98.3; O2SAT 95–99
[2023-01-28] MEDS: metroNIDAZOLE 500MG/100ML 100 ML IV SCH ×3 (05:59→21:58)
[2023-01-28] MEDS: InsuLIN REG 1unit/0.01ml Soln (100units/ml) SC SCH ×4 (06:00→22:00)
[2023-01-28] MEDS: ACCU-CHEK COMFORT CURVE STRIP VI SCH ×4 (06:00→21:59)
[2023-01-28] MEDS: SUCRALFATE 1 GM/10 ML ORAL SUSP PO SCH ×4 (06:17→21:58)
[2023-01-28] MEDS: SILDENAFIL CITRATE 20 MG TAB PO SCH ×3 (08:11→20:00)
[2023-01-28] MEDS: PANTOPRAZOLE 40 MG/10 ML VIAL INJ IV SCH (09:42)
[2023-01-28] MEDS: SACUBITRIL-VALSARTAN 24mg/26mg TAB PO SCH ×2 (09:42→22:03)
[2023-01-28] MEDS: FUROSEMIDE 20 MG/2 ML VIAL IV SCH (09:42)
[2023-01-28] MEDS: CEFEPIME 1GM/ 50ML 50 ML IV SCH ×2 (09:42→21:58)
[2023-01-28] MEDS: NYSTATIN TOPICAL POWDER 15GM TOP SCH ×2 (12:08→22:03)
[2023-01-28 13:36] LABS: Chloride 105 mmol/L (98-107); Potassium 3.3 mmol/L (3.5-5.1); Sodium 138 mmol/L (136-145)
[2023-01-28 13:37] LABS: Anion Gap 7.2 (5-15); Carbon Dioxide 25.8 mmol/L (20-30)
[2023-01-28 13:38] LABS: Calcium 9.1 mg/dL (8.7-10.4)
[2023-01-28 13:43] LABS: BUN/Creatinine Ratio 16.9 (10.0-20.0); Blood Urea Nitrogen 15 mg/dL (9-23); Glucose 129 mg/dL (74-106)
[2023-01-28 15:16] LABS: INR 1.18 (0.9-1.15); Partial Thromboplastin Time 33.3 SEC (24.5-34.5); Prothrombin Time 12.3 sec (9.3-11.8)
[2023-01-28] MEDS: ATORVASTATIN 20 MG TAB PO SCH (21:57)
[2023-01-29] VITALS (9 sets, daily range): BP systolic 106–151; BP diastolic 43–86; PULSE 65–98; RESP 17–19; TEMP 97.4–98.5; O2SAT 95–97
[2023-01-29] MEDS: SUCRALFATE 1 GM/10 ML ORAL SUSP PO SCH ×4 (05:41→21:57)
[2023-01-29] MEDS: metroNIDAZOLE 500MG/100ML 100 ML IV SCH (05:42)
[2023-01-29] MEDS: InsuLIN REG 1unit/0.01ml Soln (100units/ml) SC SCH ×4 (05:57→21:56)
[2023-01-29] MEDS: ACCU-CHEK COMFORT CURVE STRIP VI SCH ×4 (05:57→21:56)
[2023-01-29 06:28] LABS: Anion Gap 8.5 (5-15); Carbon Dioxide 24.5 mmol/L (20-30); Chloride 106 mmol/L (98-107); Potassium 3.1 mmol/L (3.5-5.1); Sodium 139 mmol/L (136-145)
[2023-01-29 06:30] LABS: Calcium 8.8 mg/dL (8.7-10.4)
[2023-01-29 06:34] LABS: Glucose 113 mg/dL (74-106)
[2023-01-29 06:35] LABS: Blood Urea Nitrogen 15 mg/dL (9-23)
[2023-01-29] MEDS: PANTOPRAZOLE 40 MG/10 ML VIAL INJ IV SCH (10:03)
[2023-01-29] MEDS: SACUBITRIL-VALSARTAN 24mg/26mg TAB PO SCH ×2 (10:03→21:56)
[2023-01-29] MEDS: FUROSEMIDE 20 MG/2 ML VIAL IV SCH (10:03)
[2023-01-29] MEDS: SILDENAFIL CITRATE 20 MG TAB PO SCH ×3 (10:03→19:58)
[2023-01-29] MEDS: CEFEPIME 1GM/ 50ML 50 ML IV SCH (10:03)
[2023-01-29 10:06] LABS: Anti-Centromere B Antibody <0.2 AI (0.0-0.9); Anti-Jo-1 Antibody <0.2 AI (0.0-0.9); Anti-Nuclear Antibody Direct Negative (Negative); Anti-dsDNA Antibody 1 IU/mL (0-9); Antichromatin Antibody <0.2 AI (0.0-0.9); Antiscleroderma-70 Antibody <0.2 AI (0.0-0.9); RNP Antibody 0.2 AI (0.0-0.9); Sjogren's Anti-SS-A Antibody <0.2 AI (0.0-0.9); Sjogren's Anti-SS-B Antibody <0.2 AI (0.0-0.9); Smith Antibody <0.2 AI (0.0-0.9)
[2023-01-29] MEDS: NYSTATIN TOPICAL POWDER 15GM TOP SCH ×2 (10:12→22:01)
[2023-01-29 10:22] LABS: Hepatitis B Surface Antigen Negative (Negative)
[2023-01-29 10:42] LABS: Hepatitis A Ab IgM Negative
[2023-01-29 10:43] LABS: Hepatitis B Core IgM Negative; Hepatitis C Antibody Negative (Negative)
[2023-01-29] MEDS ORDERED: LIDOCAINE 1% (LOCAL ANESTH.) PF 5ml SDV ID ONE (12:00)
[2023-01-29] MEDS ORDERED: VANCOMYCIN 1GM/250ML 250 ML IV ONE (12:30)
[2023-01-29] MEDS ORDERED: VANCOMYCIN PER PHARMACY 0 MG IV SCH (12:30)
[2023-01-29] MEDS ORDERED: ZOLPIDEM TARTRATE 5 MG TAB PO ONE (17:45)
[2023-01-29] MEDS: VANCOMYCIN 1GM/250ML 250 ML IV SCH (17:45)
[2023-01-29] MEDS: ATORVASTATIN 20 MG TAB PO SCH (21:56)
[2023-01-29] MEDS: SODIUM CHLOR 0.9% PF (SALINE LOCK) 10ML VIAL/SYR IV SCH (21:57)
[2023-01-30] VITALS (7 sets, daily range): BP systolic 99–125; BP diastolic 45–61; PULSE 64–66; RESP 16–17; TEMP 98.4–98.8; O2SAT 94–96
[2023-01-30] MEDS: VANCOMYCIN 1GM/250ML 250 ML IV SCH (05:03)
[2023-01-30] MEDS: SUCRALFATE 1 GM/10 ML ORAL SUSP PO SCH ×4 (06:36→21:58)
[2023-01-30] MEDS: InsuLIN REG 1unit/0.01ml Soln (100units/ml) SC SCH ×4 (06:36→21:59)
[2023-01-30] MEDS: ACCU-CHEK COMFORT CURVE STRIP VI SCH ×4 (06:36→21:58)
[2023-01-30 06:55] LABS: COVID19 ANTIGEN SOFIA FIA NEGATIVE (NEGATIVE)
[2023-01-30] MEDS: SILDENAFIL CITRATE 20 MG TAB PO SCH ×3 (09:13→19:48)
[2023-01-30] MEDS: SACUBITRIL-VALSARTAN 24mg/26mg TAB PO SCH ×2 (09:13→22:03)
[2023-01-30] MEDS: PANTOPRAZOLE 40 MG/10 ML VIAL INJ IV SCH (09:15)
[2023-01-30] MEDS: FUROSEMIDE 20 MG/2 ML VIAL IV SCH (09:15)
[2023-01-30] MEDS: SODIUM CHLOR 0.9% PF (SALINE LOCK) 10ML VIAL/SYR IV SCH ×2 (09:16→22:00)
[2023-01-30] MEDS: NYSTATIN TOPICAL POWDER 15GM TOP SCH ×2 (09:20→22:05)
[2023-01-30] MEDS: NYSTATIN (MOUTH-THROAT) 500,000 UNITS/5 ML SUSP MT SCH ×2 (19:04→22:08)
[2023-01-30] MEDS ORDERED: TEMAZEPAM 15 MG CAP PO ONE (21:15)
[2023-01-30] MEDS: ATORVASTATIN 20 MG TAB PO SCH (22:04)
[2023-01-31 05:00] VITALS: BP 122/51; PULSE 64; RESP 18; TEMP 98.7; O2SAT 97
[2023-01-31] MEDS: NYSTATIN (MOUTH-THROAT) 500,000 UNITS/5 ML SUSP MT SCH ×2 (06:00→12:00)
[2023-01-31] MEDS: ACCU-CHEK COMFORT CURVE STRIP VI SCH ×2 (06:36→11:30)
[2023-01-31] MEDS: InsuLIN REG 1unit/0.01ml Soln (100units/ml) SC SCH ×2 (06:36→11:30)
[2023-01-31] MEDS: SUCRALFATE 1 GM/10 ML ORAL SUSP PO SCH ×2 (06:36→11:30)
[2023-01-31] MEDS: SILDENAFIL CITRATE 20 MG TAB PO SCH (08:00)
[2023-01-31 09:06] LABS: Basophils # (auto) 0 10 ^3/uL (0-0.2); Basophils % (auto) 0.9 % (0.0-2.0); Eosinophils # (auto) 0.2 10 ^3/uL (0-0.8); Hematocrit 25.4 % (36.0-46.0); Hemoglobin 8.5 g/dL (12.2-16.2); Lymphocytes # (auto) 0.9 10 ^3/uL (0.4-5.4); Lymphocytes % (auto) 21.8 % (10.0-50.0); Mean Corpuscular Hemoglobin 28.4 pg (28.0-32.0); Mean Corpuscular Hgb Conc. 33.6 g/dL (32.0-36.0); Mean Corpuscular Volume 84.4 fL (80.0-100.0); Monocytes # (auto) 0.4 10 ^3/uL (0-1.3); Monocytes % (auto) 10.1 % (0.0-12.0); Neutrophils # (auto) 2.5 10 ^3/uL (1.6-8.6); Neutrophils % (auto) 61.2 % (37.0-80.0); Red Blood Cells 3.01 10^6/uL (4.0-5.20); Red Cell Distribution Width 16.7 % (11.8-14.3)
[2023-01-31] MEDS: PANTOPRAZOLE 40 MG/10 ML VIAL INJ IV SCH (10:00)
[2023-01-31] MEDS: SACUBITRIL-VALSARTAN 24mg/26mg TAB PO SCH (10:00)
[2023-01-31] MEDS ORDERED: VANCOMYCIN 1GM/250ML 250 ML IV SCH (10:00)
[2023-01-31] MEDS: FUROSEMIDE 20 MG/2 ML VIAL IV SCH (10:00)
[2023-01-31] MEDS ORDERED: APIXABAN 5 MG TAB PO SCH (10:00)
[2023-01-31 10:57] VITALS: BP 122/81; PULSE 64; RESP 18; O2SAT 97
[2023-01-31] MEDS: SODIUM CHLOR 0.9% PF (SALINE LOCK) 10ML VIAL/SYR IV SCH (11:25)
[2023-01-31] MEDS: NYSTATIN TOPICAL POWDER 15GM TOP SCH (11:25)
[2023-01-31 11:28] VITALS: BP 115/44; TEMP 37.1
== END 2023-01-31 13:35 | DRG 871 ==
LOC: EDBD 15:37 → ER 15:37 → TELE 18:32 → TELE-WESTW 22:53
PROVIDERS: ADMIT Nurse Practitioner Family; ATTEND Family Medicine
PROC: 4B02XSZ Measurement of Cardiac Pacemaker, External Approach (ICD-10-PCS; 2023-01-26)
PROC: 02HV33Z Insertion of Infusion Device into Superior Vena Cava, Percutaneous Approach (ICD-10-PCS; principal; 2023-01-29)
PROC: B548ZZA Ultrasonography of Superior Vena Cava, Guidance (ICD-10-PCS; 2023-01-29)
DX: A41.02 Sepsis due to Methicillin resistant Staphylococcus aureus (principal); I50.33 Acute on chronic diastolic (congestive) heart failure; J96.01 Acute respiratory failure with hypoxia; I13.0 Hypertensive heart and chronic kidney disease with heart failure and stage 1 through stage 4 chronic kidney disease, or unspecified chronic kidney disease; N17.9 Acute kidney failure, unspecified; I47.1 Supraventricular tachycardia; Z68.41 Body mass index [BMI] 40.0-44.9, adult; L03.115 Cellulitis of right lower limb; L03.116 Cellulitis of left lower limb; D64.9 Anemia, unspecified; Z20.822 Contact with and (suspected) exposure to COVID-19; E66.01 Morbid (severe) obesity due to excess calories; E11.65 Type 2 diabetes mellitus with hyperglycemia; R13.10 Dysphagia, unspecified; E83.42 Hypomagnesemia; E11.51 Type 2 diabetes mellitus with diabetic peripheral angiopathy without gangrene; E78.00 Pure hypercholesterolemia, unspecified; E88.09 Other disorders of plasma-protein metabolism, not elsewhere classified; D69.6 Thrombocytopenia, unspecified; E11.22 Type 2 diabetes mellitus with diabetic chronic kidney disease; I89.0 Lymphedema, not elsewhere classified; K76.0 Fatty (change of) liver, not elsewhere classified; N18.9 Chronic kidney disease, unspecified; I48.91 Unspecified atrial fibrillation; I25.10 Atherosclerotic heart disease of native coronary artery without angina pectoris; I44.7 Left bundle-branch block, unspecified; S81.801A Unspecified open wound, right lower leg, initial encounter; X58.XXXA Exposure to other specified factors, initial encounter; Z88.0 Allergy status to penicillin; Z88.8 Allergy status to other drugs, medicaments and biological substances; Z82.0 Family history of epilepsy and other diseases of the nervous system; Z82.49 Family history of ischemic heart disease and other diseases of the circulatory system; Z82.5 Family history of asthma and other chronic lower respiratory diseases; Z91.199 Patient's noncompliance with other medical treatment and regimen due to unspecified reason; Z95.0 Presence of cardiac pacemaker; Z79.01 Long term (current) use of anticoagulants; Y93.89 Activity, other specified; Y92.89 Other specified places as the place of occurrence of the external cause; Y99.8 Other external cause status
CPT/HCPCS: 36415; 36569; 71045; 76705; 78226; 80048; 80053; 80061; 80074; 80202; 81001; 82140; 82248; 82565; 82570; 82728; 82962; 83036; 83516; 83605; 83690; 83735; 83880; 83935; 84133; 84156; 84300; 84443; 84484; 85025; 85610; 85730; 86038; 86225; 86235; 87040; 87077; 87086; 87186; 87205; 87426; 92610; 93005; 93306; 93925; 93970; 96365; 97163; 99291; A4565; C9113; G0378; J1815; J3490; P9047